=== PATIENT | female | born 1940 | race Caucasian/White ===

== ENCOUNTER 2020-05-27 14:55 | Outpatient (REF) | payer MEDICARE, SELFPAY | END 2020-05-27 14:56 | disposition home or self-care (01) | LOC: HO.LAB 14:55 | PROVIDERS: Visit Provider Internal Medicine | DX: Z20.822 Contact with and (suspected) exposure to COVID-19 (principal) | CPT/HCPCS: 36415; C9803; U0003 ==

== ENCOUNTER 2020-06-15 12:45 | Outpatient (REF) | payer MEDICARE, SELFPAY ==
[2020-06-15 13:14] LABS: Hemoglobin 8.1 g/dl (12.0-16.0)
[2020-06-15 13:16] LABS: Hematocrit 25.6 % (37-47); Mean Corpuscular HGB Conc 31.6 g/dl (31.0-35.0); Mean Corpuscular Hemoglobin 28.6 pg (27.0-33.0); Mean Corpuscular Volume 90.5 fL (80-98); Platelet Count 321 X10*3/uL (160-400); Red Blood Count 2.83 X10*6/uL (4.20-5.50); Red Cell Distribution Width 27.6 % (11.0-16.0); White Blood Count 7.9 X10*3/uL (4.8-10.8)
[2020-06-15 13:26] LABS: NRBC Pct Auto 1.9 /100WBC (0.0-0.2); PLT ABN DIST 1
[2020-06-15 13:44] LABS: Alanine Aminotransferase 10 U/L (0-31); Albumin Level 4.2 g/dL (3.5-5.0); Alkaline Phosphatase 54 U/L (39-117); Anion Gap 14 (12-20); Aspartate Amino Transferase 9 U/L (5-31); Bilirubin Total 0.9 mg/dL (0.0-1.0); Blood Urea Nitrogen 11 mg/dL (9-16); Calcium 8.6 mg/dL (8.4-10.2); Carbon Dioxide 25 mmol/L (22-29); Chloride 104 mmol/L (96-108); Cholesterol 183 mg/dL; Estimated Glomerular Filt Rate 43; Glucose Random 125 mg/dL (60-115); HDL Cholesterol 42 mg/dL; LDL Cholesterol Calculated 111 mg/dl; Potassium 4.2 mmol/L (3.3-5.1); Sodium 139 mmol/L (135-145); Total Protein 7.1 g/dL (6.5-8.0); Triglycerides 153 mg/dL
[2020-06-15 13:58] LABS: Thyroid Stimulating Hormone 4.72 uIU/mL (0.32-4.0)
[2020-06-15 14:10] LABS: Atypical Lymph Absolute Manual 0.1 x10*3/uL; Atypical Lymphs Percent Manual 1 % (0-6); Band Neutrophils Percent 11 % (3-5); Basophils Abs Manual 0.1 X10*3/uL (0.0-0.3); Basophils Percent Manual 1 % (0-1); Eosinophils Absolute Manual 1.2 X10*3/UL (0.0-0.8); Eosinophils Percent Manual 15 % (0-4); Lymphocytes Percent Manual 13 % (20-40); Metamyelocytes Absolute 0.2 X10*3/uL; Metamyelocytes Percent 2 %; Monocytes Absolute Manual 1.1 X10*3/uL (0.0-1.2); Monocytes Percent Manual 14 % (2-11); Neutrophils Absolute Manual 4.3 X10*3/uL (2.2-7.9); Neutrophils Percent Manual 43 % (45-73)
[2020-06-15 14:11] LABS: Large Platelet PRESENT; Platelet Estimate NORMAL (NORMAL); Platelet Morphology Comment NOTED; RBC Morphology NOTED
[2020-06-15 14:12] LABS: Acanthocytes 1+; Ovalocytes 1+; Polychromasia 2+; Schistocytes 1+; Target Cells 1+; Tear Drop Cells 1+
[2020-06-15 14:13] LABS: Basophilic Stippling 1+; Hypochromasia 2+; Pappenheimer Bodies PRESENT
== END 2020-06-15 12:46 | disposition home or self-care (01) ==
LOC: HO.LAB 12:45
PROVIDERS: Absent Provider Internal Medicine Medical Oncology; PCP Internal Medicine; Visit Provider Internal Medicine
DX: E03.9 Hypothyroidism, unspecified (principal); F32.89 Other specified depressive episodes; I12.9 Hypertensive chronic kidney disease with stage 1 through stage 4 chronic kidney disease, or unspecified chronic kidney disease; L65.9 Nonscarring hair loss, unspecified
CPT/HCPCS: 36415; 80053; 80061; 82728; 84443; 85007; 85025; 85027

== ENCOUNTER 2020-06-21 | Outpatient (REF) | payer MEDICARE, SELFPAY | END 2020-06-21 00:01 | disposition home or self-care (01) | LOC: HO.LAB | PROVIDERS: Visit Provider Internal Medicine Medical Oncology | DX: Z13.89 Encounter for screening for other disorder (principal) ==

== ENCOUNTER 2020-08-23 14:01 | Day surgery (SDC) | payer MEDICARE, SELFPAY ==
[2020-08-23 12:25] VITALS: BMI 23.8
--- NOTE | 2020-08-23 14:04 | HO.ANESPROP2 ---
[facility] Active Problems Active Problems: All Active Problems (Updated 08/18/20 @ 09:54 by Carolina Boucher MD) Anemia (Acute) Leukocytosis (Acute) Past Medical History Medical History Anemia Colitis Congestive heart failure (CHF) GERD (gastroesophageal reflux disease) HTN (hypertension) Hx of cardiac pacemaker Hx of thyroid disease Family History Family History Brother Cancer Sister Sister Dementia Surgical History Surgical History H/O colonoscopy History of permanent cardiac pacemaker placement Hx of eye surgery Hx of hysterectomy Hx of knee surgery Hx of tracheostomy Hx of tubal ligation Social History Social History Alcohol intake: current Alcohol intake frequency: a few times a month Alcohol type: hard liquor Smoking Status: Light tobacco smoker Tobacco Type: Cigarette Years Smoked: 41 Use of substances other than those prescribed or required for medical reasons: No Have you been hit, kicked, punched, or otherwise hurt by someone within the past year? If so, by whom?: No Advance Directives: No Advance Directives Information Provided: No Advance Directives on File: No Meds Allergies Allergy/AdvReac Type Severity Reaction Status Date / Time No Known Allergies Allergy Verified 08/23/20 12:19 [No Known Allergies*] Home Medications Medication Instructions Recorded Confirmed Last Taken Type amlodipine 5 mg PO DAILY 06/21/20 06/27/20 Unknown History fluoxetine 40 mg PO DAILY 06/21/20 06/27/20 Unknown History hydroxyzine pamoate 25 mg PO TID 06/21/20 06/27/20 Unknown History ibuprofen 400 mg PO Q6H PRN 06/21/20 06/27/20 Unknown History ketoconazole TOPICAL 06/21/20 Unknown History ketorolac drp 06/21/20 Unknown History levothyroxine 88 mcg PO DAILY 06/21/20 06/27/20 Unknown History lisinopril 20 mg PO DAILY 06/21/20 06/27/20 Unknown History omeprazole 20 mg PO DAILY 06/21/20 06/27/20 Unknown History propranolol 120 mg PO DAILY 06/21/20 06/27/20 Unknown History quetiapine 300 mg PO BEDTIME 06/21/20 06/27/20 Unknown History Exam Exam Date and Time: August 23, 2020 1404 Height,Weight and Vital Signs: Height 5 ft 6 in Weight 66.8 kg Airway Mallampati Class: II TM Dist: >3cm Partial: Upper and Lower Loose/Missing/Broken Teeth: Yes Heart: RRR Lungs: CTA Assessment and Plan Assessment Anesthesia Assessment: Anesthesia Plan Discussed and Chart Reviewed Final Anesthetic Review NPO: Yes ASA Class: III Final Preanesthetic Review: Meds/Allgs Chart Reviewed, Consent Obtained/Reviewed and Anes Risks/Benef Reviewed Patient Risk: Intermediate Procedure Risk: Low Anesthetic Plan Anesthetic Plan: MAC: Disposition: Standard PACU
[2020-08-23 14:11] VITALS: BP 158/86; PULSE 75; RESP 16; TEMP 36.5; O2SAT 95
[2020-08-23] MEDS: Lactated Ringers 1,000 ML 20 ML IVCONT (14:24)
[2020-08-23 15:00] VITALS: BP 115/63; PULSE 75; RESP 16; TEMP 36.8; O2SAT 99
--- NOTE | 2020-08-23 15:03 | PM.HEMONCBM ---
Bone Marrow Aspiration - Bone Marrow Aspiration Procedure:: *Service Date: [08/23/20] Pre Op Diagnosis:: 1. ANEMIA. 2. LEUKOCYTOSIS. Post Op Diagnosis:: SAME. Surgeon:: Carolina Laughlin. Anesthesia:: MAC. Consent:: Informed consent obtained from the patient for the procedure. Pros and cons of biopsy explained. The patient was willing to proceed with the procedure under local anesthesia and MAC. Procedure in Detail:: *Service Date: 08/23/20. *Procedure: Bone marrow aspiration and biopsy. *Pre Op Dx: Anemia. Leukocytosis. *Post Op Dx: Same. *Surgeon: Carolina Boucher. The patient was positioned prone and the left posterior superior iliac spine prepped and draped. Under aseptic precautions, 5 ml of 1% lidocaine used for local anesthesia. Bone marrow aspirate was performed. Biopsy was performed with the Jamshidi needle without any complications. Specimens were sent for Hill stain, flow cytometry, cytogenetics, Biopsy was sent for histology. The patient tolerated the procedure well. Bandage was applied and patient was positioned on her back for 10 to 15 minutes after the procedure. The patient was advised to call us if she develops any pain or swelling at the surgical site. Follow up in 2 weeks. Thanks, CC:
[2020-08-23 15:06] LABS: Bone Marrow SEE SEPARATE REPORT
[2020-08-23 15:15] VITALS: BP 151/77; PULSE 72; RESP 18; O2SAT 97
[2020-08-23 15:30] VITALS: BP 145/64; PULSE 60; RESP 16; O2SAT 97
[2020-08-23 15:45] VITALS: BP 136/66; PULSE 62; RESP 18; O2SAT 98
== END 2020-08-23 16:32 | disposition home or self-care (01) ==
PROVIDERS: PCP Internal Medicine; Visit Provider Internal Medicine Medical Oncology
PROC: (CPT 38221; principal; 2020-08-23 13:00)
DX: D64.9 Anemia, unspecified (principal); D72.829 Elevated white blood cell count, unspecified; F17.210 Nicotine dependence, cigarettes, uncomplicated; I11.0 Hypertensive heart disease with heart failure; I50.9 Heart failure, unspecified; K21.9 Gastro-esophageal reflux disease without esophagitis; Z95.0 Presence of cardiac pacemaker; Z79.899 Other long term (current) drug therapy
CPT/HCPCS: 38222; 36415; 85097; 88184; 88185; 88237; 88264; 88280; 88305; 88311; 88313; 88374

== ENCOUNTER 2020-10-18 11:14 | Outpatient (REF) | payer MEDICARE, SELFPAY | END 2020-10-18 11:15 | disposition home or self-care (01) | LOC: HO.MDS 11:14 | PROVIDERS: PCP Internal Medicine; Visit Provider Internal Medicine Medical Oncology | DX: D64.9 Anemia, unspecified (principal) | CPT/HCPCS: 36430; 86850; 86900; 86901; 86923; P9016 ==

== ENCOUNTER 2021-06-29 09:48 | Outpatient (REF) | payer MEDICARE, SELFPAY ==
[2021-06-29 10:30] LABS: Alanine Aminotransferase 19 U/L (0-31); Alkaline Phosphatase 48 U/L (39-117); Anion Gap 11 (12-20); Aspartate Amino Transferase 15 U/L (5-31); Blood Urea Nitrogen 10 mg/dL (9-16); Calcium 7.8 mg/dL (8.4-10.2); Carbon Dioxide 27 mmol/L (22-29); Chloride 106 mmol/L (96-108); Cholesterol 175 mg/dL; Estimated Glomerular Filt Rate 53; Glucose Random 94 mg/dL (60-115); HDL Cholesterol 41 mg/dL; LDL Cholesterol Calculated 120 mg/dl; Potassium 4.1 mmol/L (3.3-5.1); Sodium 140 mmol/L (135-145); Total Protein 6.8 g/dL (6.5-8.0); Triglycerides 74 mg/dL
[2021-06-29 10:42] LABS: Thyroid Stimulating Hormone 11.49 uIU/mL (0.32-4.0)
== END 2021-06-29 09:49 | disposition home or self-care (01) ==
LOC: HO.LAB 09:48
PROVIDERS: Visit Provider Internal Medicine
DX: D64.9 Anemia, unspecified (principal); E03.9 Hypothyroidism, unspecified; F32.9 Major depressive disorder, single episode, unspecified; I12.9 Hypertensive chronic kidney disease with stage 1 through stage 4 chronic kidney disease, or unspecified chronic kidney disease; N18.9 Chronic kidney disease, unspecified
CPT/HCPCS: 36415; 80053; 80061; 84443

== ENCOUNTER 2022-01-24 16:32 | Inpatient (IN) | payer MEDICARE, OTHER, SELFPAY ==
--- NOTE | ~2022-01-24 | CT_ITS ---
EXAMINATION: HEAD CT WITHOUT CONTRAST CERVICAL SPINE CT WITHOUT CONTRAST CLINICAL INFORMATION: Status post fall. COMPARISON: None. TECHNIQUE: Contiguous axial imaging of the head was performed without the administration of IV contrast. Axial multidetector volumetric images were also performed through the cervical spine without intravenous contrast. Multiplanar reconstructed images in coronal and sagittal orientations were submitted. This CT examination was performed using dose optimization techniques as appropriate, variously including the following: *Automated exposure control *Adjustment of mA and/or kV according to patient size (this includes techniques or standardized protocols for targeted exams where dose is matched to indication/reason for exam; i.e. extremities or head) *Use of iterative reconstruction technique DOSE: 967 mGy-cm FINDINGS: HEAD: There is no evidence of acute intracranial hemorrhage or territorial infarction. No abnormal mass-effect or midline shift. No extra-axial fluid collections. Rodriguez to white matter differentiation is well preserved. The ventricles are normal in size and configuration. A few foci of hypoattenuation in the subcortical and periventricular white matter are most consistent with chronic microangiopathic changes. Calvarium is intact. No fractures. Leftward deviation of the nasal septum. Left globe is aphakic. The sinuses and mastoid air cells are clear. CERVICAL SPINE: Vertebral body heights are normal. No fractures of the vertebral bodies or posterior elements. Anterolisthesis of C3 on C4 by 2 mm and is likely related to facet arthropathy at this level. No acute subluxation. Degenerative changes are present at the craniocervical and atlantoaxial articulations, though normal alignment is maintained. Moderate degenerative disc disease is evident at C4-C5 and C5-C6 with loss of intervertebral disc height, vertebral osteophytes, and endplate osteophytes. More mild degenerative disc disease is present at other levels. There is moderate multilevel facet arthropathy, most pronounced on the left from C2-C3 through C5-C6. No critical central canal stenoses are identified. Uncovertebral and facet osteophytes produce multilevel neural foraminal stenoses, most notably on the left from C2-C3 through C5-C6 and on the right at C4-C5 and C5-C6. Atherosclerotic calcifications are present in the abdominal aorta. No aneurysmal dilatation. Imaged portions of the lung apices are clear. CT/CT cervical spine wo IV con IMPRESSION: 1. No acute intracranial pathology. 2. No acute fracture or malalignment in the cervical spine. 3. Moderate multilevel degenerative spondylosis in cervical spine with multilevel neural foraminal encroachment.
--- NOTE | ~2022-01-24 | NM_ITS ---
EXAMINATION: LIMITED BONE SCAN. CLINICAL INFORMATION: Multiple lumbar fractures. Question acute versus old requested for kyphoplasty. COMPARISON: CT lumbar spine 01/16/2022 TECHNIQUE: Following intravenous administration of 23 mCi of 90 9M technetium MDP, limited bone scan of the spine was obtained. FINDINGS: There is no intense abnormal activity seen in the lumbar spine to suspect any acute fracture. There is nonspecific mild activity seen in the facet joints in the mid lumbar spine. No abnormal activity seen in the thoracic and cervical spine. Normal activity seen in upper extremities. Moderate increased activity seen in bilateral SI joints which could be secondary to sacroiliitis.. NM/NM bone scan limited area IMPRESSION: No abnormal metabolic activity seen in lumbar spine. Multiple lumbar fractures from T12 through L3 vertebra are likely old. No intervention needed. Nonspecific mild increase activity seen in bilateral SI joints likely sacroiliitis
--- NOTE | ~2022-01-24 | XR_ITS ---
EXAMINATION: XR LUMBOSACRAL SPINE CLINICAL INFORMATION: Status post fall. COMPARISON: CT dated 07/23/2014 and chest radiograph dated 09/26/2017. TECHNIQUE: Three views of the lumbosacral spine. FINDINGS: Superior endplate compression deformities are evident at T12, L1, L2, and L3 with vertebral body height loss measuring 65 percent, 40 percent, 50 percent, and 30 percent. The fracture of the L3 vertebral body is new as compared to prior and age indeterminant. The T12, L1 and L2 fractures appear chronic. Bones are osteopenic. No additional fractures. Mild hyperkyphosis of the thoracolumbar junction. There is mild to moderate multilevel degenerative disc disease in the lumbar spine with facet arthropathy in the lower lumbar spine. Mild osteoarthritis in the SI joints. Calcific atherosclerosis in the abdominal aorta and iliac arteries. XR/XR lumbar spine 2-3V IMPRESSION: Age indeterminant superior endplate compression fracture of the L3 vertebral body with approximately 30 percent loss of vertebral body height. Chronic superior endplate compression fractures at T12, L1, and L2.
--- NOTE | ~2022-01-24 | US_ITS ---
EXAMINATION: US RETROPERITONEAL LIMITED (RENAL ONLY) CLINICAL INFORMATION: UTI. COMPARISON: X-ray abdomen 07/28/2014 and 07/26/2014. CT abdomen and pelvis 07/23/2014. Renal ultrasound 06/19/2013. TECHNIQUE: Real-time imaging of the kidneys. FINDINGS: RIGHT KIDNEY: 9.8 x 5.2 x 4.7 cm (SAG x AP x TRV). The kidney is normal in size, contour, and echogenicity. Renal cortical thickness is normal. There is a 1.6 x 1.8 x 1.8 cm cyst in the mid to lower pole. No renal calculi or hydronephrosis. LEFT KIDNEY: 9.8 x 4.4 x 4.6 cm (SAG x AP x TRV). The kidney is normal in size, contour, and echogenicity. Renal cortical thickness is normal. No calculi or focal parenchymal lesions. No hydronephrosis. US/US renal BI IMPRESSION: Right renal cyst. No stone or hydronephrosis seen.
--- NOTE | ~2022-01-24 | CT_ITS ---
EXAMINATION: CT LUMBAR SPINE WITHOUT CONTRAST CLINICAL INFORMATION: Compression fracture T10 through L5. COMPARISON: X-ray of the lumbosacral spine 01/24/2022, lumbosacral spine December 2013. TECHNIQUE: CT scan of the lumbosacral spine was performed with reconstruction imaging performed at the acquisition workstation. This CT examination was performed using dose optimization techniques as appropriate, variously including the following: *Automated exposure control. *Adjustment of mA and/or kV according to patient size (this includes techniques or standardized protocols for targeted exams where dose is matched to indication/reason for exam; i.e. extremities or head). *Use of iterative reconstruction technique. DLP: 501 mGy-cm FINDINGS: There are chronic unchanged compression fractures of L1 and L2 when compared with prior x-ray performed December 2013. There is approximately 30% loss of the expected vertebral body height at both levels. There is a severe compression fracture of T12, age-indeterminate, but new compared with the 2013 x-ray. The fracture involves the superior endplate along with the body resulting in over 80% loss of the expected vertebral body height, fracture more likely chronic than subacute. No discrete fracture line identified. This has resulted in posterior protrusion of the vertebral body into the canal measuring up to 5 mm. L3: There is a prominent compression fracture of the superior endplate resulting in approximately 50% loss in the expected vertebral body height. There is no discrete fracture line. This likely reflects a chronic rather than subacute fracture. There is multilevel degenerative disc changes with severe degenerative disc changes present from T11-T12 through L3-L4 with vacuum disc phenomenon present and variable disc space narrowing. There is bilateral facet arthrosis at L5-S1 levels. At T11-T12, there is mild generalized bulging of the disc and advanced bilateral facet arthrosis. As noted above, there is posterior protrusion of the posterior aspect of the vertebral body related to the fracture. Overall findings result in [id number] narrowing of the central canal. T12-L1: Minimal bulging of the disc. Mild bilateral facet arthrosis or significant narrowing central canal and neural foramina. L1-L2: Minimal bulging of the disc. Mild bilateral facet arthrosis. No significant narrowing of the central canal or neural foramina. L2-L3: Mild bulging of the disc. Bilateral facet arthrosis. No significant narrowing of the central canal. Mild narrowing of the neural foramina. L3-L4: Generalized bulging of the disc. Mild bilateral facet arthrosis. [id number] narrowing of the central canal and neural foramina bilaterally. L4-L5: Generalized bulging of the disc with mild bilateral facet arthrosis. Findings result in mild narrowing of the central canal and neural foramina bilaterally. L5-S1: Mild bulging of the disc. Mild bilateral facet arthrosis. Findings result in mild narrowing of the central canal and neural foramina bilaterally. MISCELLANEOUS FINDINGS: Moderate calcific atherosclerotic changes. CT/CT lumbar spine wo IV con IMPRESSION: 1. Chronic/old compression fractures L1 and L2, unchanged compared with 2014. 2. Additional compression fractures of T12 and L3, age-indeterminate but more likely chronic than subacute, albeit new compared with the 2014 exam. 3. Additional multilevel spondylosis of the lumbosacral spine.
--- NOTE | 2022-01-24 16:43 | ECG_ITS ---
Test Reason : TACYCARDIA Blood Pressure : / mmHG Vent. Rate : 118 BPM Atrial Rate : 000 BPM P-R Int : 000 ms QRS Dur : 138 ms QT Int : 402 ms P-R-T Axes : 000 098 -52 degrees QTc Int : 563 ms Atrial fibrillation with rapid ventricular response Right bundle branch block T wave abnormality, consider inferolateral ischemia Abnormal ECG When compared with ECG of 11-APR-2015 12:14, Atrial fibrillation has replaced Electronic atrial pacemaker Right bundle branch block is now Present T wave inversion now evident in Inferior leads and Lateral leads Heart rate has increased Referred By: Generic ED Physician Electronically Signed By:UMAIR ANG
--- NOTE | 2022-01-24 16:44 | ED_ITS ---
HPI - Fall General Stated Complaint: BACK S/P FALL OUTSIDE ON SATURDAY,THINNERS Related Data Home Medications Medication Instructions Recorded Confirmed fluoxetine 40 mg capsule 40 mg PO DAILY 06/21/20 01/12/22 hydroxyzine pamoate 25 mg capsule 25 mg PO TID 06/21/20 01/12/22 ibuprofen 400 mg tablet 400 mg PO Q6H PRN Pain 06/21/20 01/12/22 levothyroxine 88 mcg tablet 88 mcg PO DAILY 06/21/20 01/12/22 omeprazole 20 mg capsule,delayed 20 mg PO DAILY 06/21/20 01/12/22 release propranolol 120 mg capsule,24 120 mg PO DAILY 06/21/20 01/12/22 hr,extended release (Inderal LA) quetiapine 300 mg tablet 300 mg PO BEDTIME 06/21/20 01/12/22 lisinopril 10 mg tablet 10 mg PO DAILY 12/18/21 01/12/22 Previous Rx's Medication Instructions Recorded folic acid 1 mg tablet 1 mg PO DAILY #90 tabs 06/24/20 acetaminophen 500 mg tablet 500 mg PO Q6H PRN Breakthrough 08/23/20 (Tylenol Extra Strength) Pain, Moderate #30 tabs aluminum-mag hydroxide-simethicone 10 ml PO QID PRN Digestion #350 mL 11/02/21 200 mg-200 mg-20 mg/5 mL oral susp (Maalox Advanced) cyclobenzaprine 10 mg tablet 10 mg PO BEDTIME #30 tabs 01/12/22 Allergies Allergy/AdvReac Type Severity Reaction Status Date / Time No Known Allergies Allergy Verified 01/12/22 08:40 [No Known Allergies*] [facility] Past Medical History Attestation statement: The following information was validated with the patient. Source: old records reviewed Medical History Anemia Colitis Congestive heart failure (CHF) GERD (gastroesophageal reflux disease) HTN (hypertension) Hx of cardiac pacemaker Hx of thyroid disease Surgical History H/O colonoscopy History of permanent cardiac pacemaker placement Hx of eye surgery Hx of hysterectomy Hx of knee surgery Hx of tracheostomy Hx of tubal ligation Family History Family History Brother Cancer Sister Sister Dementia Son Esophageal cancer Social History Social History Household Members: None Housing: House Are you a primary personal care home administrator to a significant other at home: No Do you presently have visiting nurse or other home services: No Alcohol intake: current Alcohol intake frequency: a few times a month Alcohol type: hard liquor Patient Tobacco Use Status: Current everyday Tobacco user Years Smoked: 41 service: No Current occupational status: retired Discharge Plan Discharge Prescriptions: No Action folic acid 1 mg Tablet 1 mg PO DAILY Qty: 90 3RF fluoxetine 40 mg capsule 40 mg PO DAILY quetiapine 300 mg tablet 300 mg PO BEDTIME levothyroxine 88 mcg tablet 88 mcg PO DAILY ibuprofen 400 mg tablet 400 mg PO Q6H PRN (Reason: Pain) omeprazole 20 mg capsule,delayed release(DR/EC) 20 mg PO DAILY propranolol [Inderal LA] 120 mg capsule,extended release 24 hr 120 mg PO DAILY hydroxyzine pamoate 25 mg capsule 25 mg PO TID acetaminophen [Tylenol Extra Strength] 500 mg Tablet 500 mg PO Q6H PRN (Reason: Breakthrough Pain, Moderate) Qty: 30 3RF alum-mag hydroxide-simeth [Maalox Advanced] 200-200-20 mg/5 mL Suspension 10 ml PO QID PRN (Reason: Digestion) Qty: 350 5RF Rx Instructions: administer between meals and at bedtime lisinopril 10 mg Tablet 10 mg PO DAILY cyclobenzaprine 10 mg Tablet 10 mg PO BEDTIME Qty: 30 4RF
[2022-01-24 16:46] VITALS: BP 108/90; BP 138/71; PULSE 115; PULSE 173; RESP 20; TEMP 36.7; O2SAT 94; O2SAT 98; BMI 24.9
--- NOTE | 2022-01-24 16:46 | ED.GENADULT ---
HPI - General Adult General Chief complaint: Fall Stated complaint: BACK S/P FALL OUTSIDE ON Time Seen by Provider: 01/24/22 16:46 Source: patient Mode of arrival: EMS Limitations: no limitations History of Present Illness HPI narrative: Patient apparently fell 5 days ago 2 times while carrying the pizza tripped on the step fell on the side since then been having increased low back pain. First time she fell while entering the house when she misstepped 2nd time she fell while going down stairs 1 flight of stairs about 12 steps she fell with pizza hitting her head to the ground no loss of consciousness complaining of low back pain since a fall. No chest pain no shortness of breath patient does have history of back pain but after the fall pain is getting worse had difficulty in ambulation. No urinary incontinence no head injury Heart rate noted to be 170 per EMS but on arrival was only 92 Related Data Home Medications Medication Instructions Recorded Confirmed fluoxetine 40 mg capsule 40 mg PO DAILY 06/21/20 01/24/22 ibuprofen 400 mg tablet 400 mg PO Q6H PRN Pain 06/21/20 01/24/22 levothyroxine 88 mcg tablet 88 mcg PO DAILY 06/21/20 01/24/22 quetiapine 300 mg tablet 300 mg PO BEDTIME 06/21/20 01/24/22 lisinopril 10 mg tablet 10 mg PO DAILY 12/18/21 01/24/22 Previous Rx's Medication Instructions Recorded acetaminophen 500 mg tablet 500 mg PO Q6H PRN Breakthrough 08/23/20 (Tylenol Extra Strength) Pain, Moderate #30 tabs aluminum-mag hydroxide-simethicone 10 ml PO QID PRN Digestion #350 mL 11/02/21 200 mg-200 mg-20 mg/5 mL oral susp (Maalox Advanced) cyclobenzaprine 10 mg tablet 10 mg PO BEDTIME #30 tabs 01/12/22 Allergies Allergy/AdvReac Type Severity Reaction Status Date / Time No Known Allergies Allergy Verified 01/12/22 08:40 [No Known Allergies*] Review of Systems Review of Systems: Yes all other systems are reviewed and are negative [facility] Past Medical History Medical History Anemia Colitis Congestive heart failure (CHF) GERD (gastroesophageal reflux disease) HTN (hypertension) Hx of cardiac pacemaker Hx of thyroid disease Surgical History H/O colonoscopy History of permanent cardiac pacemaker placement Hx of eye surgery Hx of hysterectomy Hx of knee surgery Hx of tracheostomy Hx of tubal ligation Family History Family History Brother Cancer Sister Sister Dementia Son Esophageal cancer Social History Social History Household Members: None Housing: House Are you a primary wound care technician to a significant other at home: No Do you presently have visiting nurse or other home services: No Alcohol intake: current Alcohol intake frequency: a few times a month Alcohol type: hard liquor Patient Tobacco Use Status: Current everyday Tobacco user Years Smoked: 41 Use of substances other than those prescribed or required for medical reasons: No Advance Directives: No Advance Directives Information Provided: No service: No Current occupational status: retired Physical Exam ED Vital Signs: Vital Signs - 24 hr 01/24/22 16:46 01/24/22 19:19 01/24/22 21:28 Temperature 98.1 F Pulse Rate 115 H 100 92 Respiratory Rate 20 16 16 Blood Pressure 138/71 155/89 H 128/79 Pulse Oximetry 94 93 95 Oxygen Delivery Method Room Air Room Air Room Air BMI result Body Mass Index 24.9 Appearance: Alert. Oriented X3. No acute distress. Eyes: PERRLA, No Nystagmus ENT: Pharynx normal. Oral Mucosa moist Neck: Normal inspection. Neck supple. CVS: Tachycardic irregularly irregular soft systolic ejection murmur no rub or gallop Pulses normal. Respiratory: No respiratory distress. Equal air entry bilateral, no wheezing/rales/rhonchi Abdomen: Soft and nontender. Bowel sounds are present, no mass palpable, no CVA tenderness Skin: Skin warm and dry. Normal skin color. Normal skin turgor. Extremities: No lower extremity edema. No calf tenderness back: Diffuse lumbar spine tenderness no focal tenderness /deformity Neuro: Oriented X 3. No motor deficit. No sensory deficit.No cerebellar signs , cranial nerves II-XII intact Medical Decision Making MDM Narrative Medical decision making narrative: Patient with acute/subacute lumbar compression fracture L1-L2 L3 and T12 unable to manage at home along with UTI will admit patient for pain control and antibiotics treatment plan for IR to look into vertebroplasty Patient cardiogram shows atrial fibrillation which is new onset , no AFib in previous EKGs patient unaware of atrial fibrillation patient denied any dizziness palpitation or chest pain prior to the fall heart rate is fluctuating between 120 patient does have anemia of unknown origin and does get blood transfusions at this time will hold any anticoagulation at this time cardiology consult Cardizem p.o. for rate control Lab Data Lab results reviewed: Yes I reviewed the patient's lab results. Result diagrams: 01/24/22 17:13 01/24/22 17:13 Labs: Lab Results 01/24/22 01/24/22 01/24/22 Range/Units 17:13 17:13 17:13 WBC 9.5 (4.8-10.8) X10*3/uL RBC 2.97 L (4.20-5.50) X10*6/uL Hgb 9.4 L (12.0-16.0) g/dl Hct 28.0 L (37.0-47.0) % MCV 94.3 (80.0-98.0) fL MCH 31.6 (27.0-33.0) pg MCHC 33.6 (31.0-35.0) g/dl RDW 21.4 H (11.0-16.0) % Plt Count 247 (160-400) X10*3/uL MPV 12.6 H (9.4-12.3) fL Immature Gran % (Auto) 1.9 H (0.0-0.4) % Neut % (Auto) 71.3 (45-73) % Lymph % (Auto) 14.8 L (20-40) % [place] % (Auto) 9.2 (2-11) % Eos % (Auto) 2.5 (0-4) % Baso % (Auto) 0.3 (0-2) % Lymph # (Auto) 1.4 (1.2-4.9) X10*3/uL [place] # (Auto) 0.9 (0.1-1.2) X10*3/uL Eos # (Auto) 0.2 (0.0-0.4) X10*3/uL Baso # (Auto) 0.0 (0.0-0.2) X10*3/uL Abs Immat Gran (auto) 0.18 H (0.00-0.03) X10*3/uL Absolute Neuts (auto) 6.8 (2.0-8.3) x10*3/uL Absolute Nucleated RBC 0.060 H (0.0-0.012) X10*3/uL Nucleated RBC % (auto) 0.6 H (0.0-0.2) /100WBC PT (10.0-13.1) SEC INR (0.9-1.1) Sodium 135 (135-145) mmol/L Potassium 3.9 (3.3-5.1) mmol/L Chloride 102 (96-108) mmol/L Carbon Dioxide 17 L (22-29) mmol/L Anion Gap 20 (12-20) BUN 16 D (9-16) mg/dL Creatinine 1.14 (0.5-1.4) mg/dL Estim Creat Clear Calc 34.9 Estimated GFR 46 Random Glucose 110 (60-115) mg/dL Lactic Acid (0.5-2.0) mmol/L Calcium 8.2 L D (8.4-10.2) mg/dL Total Bilirubin 0.6 (0.0-1.0) mg/dL AST 10 (5-31) U/L ALT 14 (0-31) U/L Alkaline Phosphatase 57 (39-117) U/L Troponin I High Sens (<3.5-17.0) ng/L Total Protein 6.7 (6.5-8.0) g/dL Albumin 3.8 (3.5-5.0) g/dL Urine Color Urine Appearance Urine pH (5.0-9.0) Ur Specific [place] (1.005-1.025) Urine Protein (Neg-Trace) mg/dL Urine Glucose (UA) (Negative) mg/dL Urine Ketones (Negative) mg/dL Urine Blood (Negative) Urine Nitrite (Negative) Ur Leukocyte Esterase (Negative) Urine RBC (0-2) /HPF Urine WBC (0-5) /HPF Ur Squamous Epith Cells (0-2) /HPF Urine Bacteria (None Seen) Hyaline Casts (0-2) /LPF COVID-19 (JUNG) Negative (Negative) COVID-19 Clin Com See Note 01/24/22 01/24/22 01/24/22 Range/Units 17:13 17:13 19:24 WBC (4.8-10.8) X10*3/uL RBC (4.20-5.50) X10*6/uL Hgb (12.0-16.0) g/dl Hct (37.0-47.0) % MCV (80.0-98.0) fL MCH (27.0-33.0) pg MCHC (31.0-35.0) g/dl RDW (11.0-16.0) % Plt Count (160-400) X10*3/uL MPV (9.4-12.3) fL Immature Gran % (Auto) (0.0-0.4) % Neut % (Auto) (45-73) % Lymph % (Auto) (20-40) % [place] % (Auto) (2-11) % Eos % (Auto) (0-4) % Baso % (Auto) (0-2) % Lymph # (Auto) (1.2-4.9) X10*3/uL [place] # (Auto) (0.1-1.2) X10*3/uL Eos # (Auto) (0.0-0.4) X10*3/uL Baso # (Auto) (0.0-0.2) X10*3/uL Abs Immat Gran (auto) (0.00-0.03) X10*3/uL Absolute Neuts (auto) (2.0-8.3) x10*3/uL Absolute Nucleated RBC (0.0-0.012) X10*3/uL Nucleated RBC % (auto) (0.0-0.2) /100WBC PT 11.4 (10.0-13.1) SEC INR 1.0 (0.9-1.1) Sodium (135-145) mmol/L Potassium (3.3-5.1) mmol/L Chloride (96-108) mmol/L Carbon Dioxide (22-29) mmol/L Anion Gap (12-20) BUN (9-16) mg/dL Creatinine (0.5-1.4) mg/dL Estim Creat Clear Calc Estimated GFR Random Glucose (60-115) mg/dL Lactic Acid (0.5-2.0) mmol/L Calcium (8.4-10.2) mg/dL Total Bilirubin (0.0-1.0) mg/dL AST (5-31) U/L ALT (0-31) U/L Alkaline Phosphatase (39-117) U/L Troponin I High Sens 7.6 (<3.5-17.0) ng/L Total Protein (6.5-8.0) g/dL Albumin (3.5-5.0) g/dL Urine Color Yellow Urine Appearance Turbid Urine pH 6.0 (5.0-9.0) Ur Specific [place] <= 1.005 (1.005-1.025) Urine Protein 30 (1+) H (Neg-Trace) mg/dL Urine Glucose (UA) Negative (Negative) mg/dL Urine Ketones Negative (Negative) mg/dL Urine Blood Moderate (2+) H (Negative) Urine Nitrite Negative (Negative) Ur Leukocyte Esterase Large (3+) H (Negative) Urine RBC 0-2 (0-2) /HPF Urine WBC >50 H (0-5) /HPF Ur Squamous Epith Cells 0-2 (0-2) /HPF Urine Bacteria 4+ (None Seen) Hyaline Casts 0-2 (0-2) /LPF COVID-19 (JUNG) (Negative) COVID-19 Clin Com 01/24/22 Range/Units 21:27 WBC (4.8-10.8) X10*3/uL RBC (4.20-5.50) X10*6/uL Hgb (12.0-16.0) g/dl Hct (37.0-47.0) % MCV (80.0-98.0) fL MCH (27.0-33.0) pg MCHC (31.0-35.0) g/dl RDW (11.0-16.0) % Plt Count (160-400) X10*3/uL MPV (9.4-12.3) fL Immature Gran % (Auto) (0.0-0.4) % Neut % (Auto) (45-73) % Lymph % (Auto) (20-40) % [place] % (Auto) (2-11) % Eos % (Auto) (0-4) % Baso % (Auto) (0-2) % Lymph # (Auto) (1.2-4.9) X10*3/uL [place] # (Auto) (0.1-1.2) X10*3/uL Eos # (Auto) (0.0-0.4) X10*3/uL Baso # (Auto) (0.0-0.2) X10*3/uL Abs Immat Gran (auto) (0.00-0.03) X10*3/uL Absolute Neuts (auto) (2.0-8.3) x10*3/uL Absolute Nucleated RBC (0.0-0.012) X10*3/uL Nucleated RBC % (auto) (0.0-0.2) /100WBC PT (10.0-13.1) SEC INR (0.9-1.1) Sodium (135-145) mmol/L Potassium (3.3-5.1) mmol/L Chloride (96-108) mmol/L Carbon Dioxide (22-29) mmol/L Anion Gap (12-20) BUN (9-16) mg/dL Creatinine (0.5-1.4) mg/dL Estim Creat Clear Calc Estimated GFR Random Glucose (60-115) mg/dL Lactic Acid 2.8 H* (0.5-2.0) mmol/L Calcium (8.4-10.2) mg/dL Total Bilirubin (0.0-1.0) mg/dL AST (5-31) U/L ALT (0-31) U/L Alkaline Phosphatase (39-117) U/L Troponin I High Sens (<3.5-17.0) ng/L Total Protein (6.5-8.0) g/dL Albumin (3.5-5.0) g/dL Urine Color Urine Appearance Urine pH (5.0-9.0) Ur Specific [place] (1.005-1.025) Urine Protein (Neg-Trace) mg/dL Urine Glucose (UA) (Negative) mg/dL Urine Ketones (Negative) mg/dL Urine Blood (Negative) Urine Nitrite (Negative) Ur Leukocyte Esterase (Negative) Urine RBC (0-2) /HPF Urine WBC (0-5) /HPF Ur Squamous Epith Cells (0-2) /HPF Urine Bacteria (None Seen) Hyaline Casts (0-2) /LPF COVID-19 (JUNG) (Negative) COVID-19 Clin Com ECG Data Attestation: I personally reviewed and interpreted this ECG as follows: Interpretation: Atrial fibrillation with rapid ventricular rate 118 beats per minute right bundle-branch block no acute ST wave changes no acute ischemia Discharge Plan Discharge Clinical Impression: Compression fracture, Anemia, Atrial fibrillation, new onset, Back pain Patient Disposition: Admitted As Inpatient
[2022-01-24 17:26] LABS: MANUAL DIFF FLAG NO
[2022-01-24 17:36] LABS: Lymphocytes Absolute Auto 1.4 X10*3/uL (1.2-4.9); NRBC Pct Auto 0.6 /100WBC (0.0-0.2); SCAN SMEAR FLAG 1
[2022-01-24 17:38] LABS: Basophils Percent Auto 0.3 % (0-2); Eosinophils Absolute Auto 0.2 X10*3/uL (0.0-0.4); Eosinophils Percent Auto 2.5 % (0-4); Hemoglobin 9.4 g/dl (12.0-16.0); Imm Gran Abs Auto 0.18 X10*3/uL (0.00-0.03); Imm Gran Pct Auto 1.9 % (0.0-0.4); Lymphocytes Percent Auto 14.8 % (20-40); Mean Corpuscular HGB Conc 33.6 g/dl (31.0-35.0); Mean Corpuscular Hemoglobin 31.6 pg (27.0-33.0); Mean Corpuscular Volume 94.3 fL (80.0-98.0); Mean Platelet Volume 12.6 fL (9.4-12.3); Monocytes Absolute Auto 0.9 X10*3/uL (0.1-1.2); Monocytes Percent Auto 9.2 % (2-11); Neutrophils Absolute Auto 6.8 x10*3/uL (2.0-8.3); Neutrophils Percent Auto 71.3 % (45-73); Platelet Count 247 X10*3/uL (160-400); Red Blood Count 2.97 X10*6/uL (4.20-5.50); Red Cell Distribution Width 21.4 % (11.0-16.0); White Blood Count 9.5 X10*3/uL (4.8-10.8)
[2022-01-24 17:48] LABS: PLT ABN DIST 1
[2022-01-24 17:49] LABS: Prothrombin Time 11.4 SEC (10.0-13.1)
[2022-01-24 17:50] LABS: Alanine Aminotransferase 14 U/L (0-31); Albumin Level 3.8 g/dL (3.5-5.0); Alkaline Phosphatase 57 U/L (39-117); Anion Gap 20 (12-20); Aspartate Amino Transferase 10 U/L (5-31); Bilirubin Total 0.6 mg/dL (0.0-1.0); Blood Urea Nitrogen 16 mg/dL (9-16); Calcium 8.2 mg/dL (8.4-10.2); Carbon Dioxide 17 mmol/L (22-29); Chloride 102 mmol/L (96-108); Creatinine Clr Calc Pharmacy 34.9; Estimated Glomerular Filt Rate 46; Glucose Random 110 mg/dL (60-115); Potassium 3.9 mmol/L (3.3-5.1); Sodium 135 mmol/L (135-145); Total Protein 6.7 g/dL (6.5-8.0)
[2022-01-24 17:54] LABS: Troponin-I High Sensitivity 7.6 ng/L (<3.5-17.0)
[2022-01-24 17:57] LABS: COVID-19 Test Negative (Negative); IDNOW Serial# 16C4AD1C
[2022-01-24 19:19] VITALS: BP 155/89; PULSE 100; RESP 16; O2SAT 93
[2022-01-24] MEDS: ondansetron HCL 4 MG/2 ML VIAL IVPUSH (19:30)
[2022-01-24] MEDS: Morphine Sulfate 2 MG/ML CARTRIDGE IVPUSH (19:30)
[2022-01-24 19:31] LABS: Appearance Urine Turbid; Color Urine Yellow; Glucose Urine UA Negative (Negative); Leukocyte Esterase Urine Large (3+) (Negative); Nitrite Urine Negative (Negative); Specific Gravity - Urine <= 1.005 (1.005-1.025); UMIC TRIGGER UACC YES; Urine Blood Moderate (2+) (Negative); Urine Ketones Negative (Negative); Urine Protein 30 (1+) mg/dL (Neg-Trace)
--- NOTE | 2022-01-24 19:37 | PC.NURSE ---
pt assisted to commode, very unsteady, c/o severe back pain. remains continent of urine.
[2022-01-24 20:21] LABS: Bacteria Urine 4+ (None Seen); Hyaline Casts Urine 0-2 /LPF (0-2); RBC Urine 0-2 /HPF (0-2); Squamous Epithelial Cell Urine 0-2 /HPF (0-2); UACC Culture Trigger YES; WBC Urine >50 /HPF (0-5)
[2022-01-24 21:28] VITALS: BP 128/79; PULSE 92; RESP 16; O2SAT 95
--- NOTE | 2022-01-24 21:40 | PHA.MEDREC ---
Addendum entered by Sheri Riggs [facility] 01/24/22 21:42: Of note: patient states she has not taken any of her medications today as she has been at the hospital. Original Note: Pharmacy Consult ? Medication Reconciliation Pharmacy has completed the medication reconciliation. Patient did not know what she was on. I asked her if there was anyone I could call. She told me to call [facility] however pharmacy is closed. Used claim history to create list. Excluded medications that have not been picked up since august.
[2022-01-24] MEDS: cefTRIAXone sodium 1 GM in 0.9 % Sodium Chloride 50 ML IV (21:45)
[2022-01-24 21:51] LABS: Lactic Acid 2.8 mmol/L (0.5-2.0)
--- NOTE | 2022-01-24 23:11 | MHC.CM.PN ---
Pt is a pending admission. Pt primary RN shared with CM that this patient lives alone, has daughters who live near, and recently lost 2 sons to illness (CA and Aneurysm). Pt expressed to RN feeling depressed. CM did not meet with this patient yet. Please assess with CM assessment when admitted.
--- OUTSIDE RECORDS SUMMARY | 2022-01-24 23:23 | XMS_ITS | Continuity of Care Document ---
:1940 Author Organization [facility] Address [address] [place] [id number] Care Team Providers Name Role Phone Krissy Villarreal MD Primary Care Physician Encounter [facility] Date(s): 04/07/19 - 04/08/[address] [address] [facility] Encounter Diagnosis Laceration of face (Final) - 04/08/19 Laceration of face (Final) - 04/08/19 Discharge Disposition: A-D/C Home Attending Physician: Gabo Rangel MD Admitting Physician: Gabo Rangel MD Referring Physician: Not on Staff, Referring MD Allergies, Adverse Reactions, Alerts Substance Reaction Severity Status NKA Active Immunizations Given and Recorded Vaccine Date Status Refusal Reason tetanus/diphtheria/pertussis, acel(Tdap) 04/08/19 Given Medications amLODIPine 5 mg oral tablet 0 Refills, Maintenance, 04/08/19 7:42:29 EST Start Date: 04/08/19 Status: OrderedamLODIPine 5 mg oral tablet 5 mg, 1, tablet, By Mouth, Daily, # 30 tablet, Refills 0, Maintenance, 12/28/15 16:26:36 Start Date: 12/28/15 Status: Orderedamoxicillin 500 mg oral capsule TK 4 CS PO 1 HOUR B PRO Start Date: 04/08/19 Status: OrderedclonazePAM 0.5 mg oral tablet 1 tablet = 0.5 mg, By Mouth, 3 times a day, 0 Refills, Maintenance, 12/28/15 16:24:11, Tablet Start Date: 12/28/15 Status: Orderedduloxetine 20 mg oral enteric coated capsule TK 1 C PO QD Start Date: 04/08/19 Status: OrderedFluad intramuscular suspension ADM 0.5ML IM UTD Start Date: 04/08/19 Status: OrderedFLUoxetine 40 mg oral capsule TK 1 C PO D Start Date: 04/08/19 Status: OrderedFLUoxetine 40 mg oral capsule 1 capsule = 40 mg, By Mouth, Daily, 0 Refills, Maintenance, 12/28/15 16:28:01 Start Date: 12/28/15 Status: Orderedhydrochlorothiazide-lisinopril 12.5 mg-10 mg oral tablet 1 tablet, By Mouth, Daily, # 30 tablet, 0 Refills, Maintenance, Tablet Start Date: 03/24/13 Status: Orderedlevothyroxine 0.1 mg oral tablet 1 tablet = 100 mcg, By Mouth, Daily, # 30 tablet, 0 Refills, Maintenance, 12/28/15 16:25:55, Tablet Start Date: 12/28/15 Status: Orderedlevothyroxine 0.112 mg oral tablet TK 1 T PO QD Start Date: 04/08/19 Status: Orderedlisinopril 20 mg oral tablet TK 1 T PO D Start Date: 04/08/19 Status: OrderedMedrol Dosepak 4 mg oral tablet 1 pack/packet, By Mouth, Once, # 21 tablet, 0 Refills, Soft Stop, 07/12/16 14:41:01, Tablet Start Date: 07/12/16 Status: Orderedmeloxicam 15 mg oral tablet TK 1 T PO QD Start Date: 04/08/19 Status: OrderedOmeprazole = 20 mg, By Mouth, Daily, 0 Refills, Maintenance Start Date: 11/06/12 Status: Orderedomeprazole 20 mg oral enteric coated capsule TK ONE C PO QD Start Date: 04/08/19 Status: Orderedoxaprozin 600 mg oral tablet 1 tablet = 600 mg, By Mouth, 2 times a day, 0 Refills, Maintenance, 12/28/15 16:24:31 Start Date: 12/28/15 Status: OrderedPatient's Own Meds See Instructions, Maintenance, Propanolol 100mg ER, 12/28/15 16:28:28 Start Date: 12/28/15 Status: Orderedpropranolol 120 mg oral capsule, extended release TK 1 C PO QD Start Date: 04/08/19 Status: OrderedQUEtiapine 200 mg oral tablet 200 mg, 1, tablet, By Mouth, Daily at bedtime, # 180 tablet, Refills 0, Maintenance, 12/28/15 16:24:53 Start Date: 12/28/15 Status: OrderedQUEtiapine 300 mg oral tablet TK 1 T PO HS Start Date: 04/08/19 Status: OrderedraNITIdine 300 mg oral tablet TK 1 T PO QD HS Start Date: 04/08/19 Status: OrderedtiZANidine 2 mg oral tablet TK 1 T PO TID Start Date: 04/08/19 Status: Orderedzolpidem 5 mg oral tablet 1 tablet = 5 mg, By Mouth, Daily at bedtime, 0 Refills, Maintenance, 12/28/15 16:23:49 Start Date: 12/28/15 Status: Ordered Problem List Condition Effective Dates Status Health Status Informant Acquired vaginal enterocele(Confirmed) Active Cystocele(Confirmed) Active 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 FINDINGS: No fractures or bone lesions. The visualized joint spaces are normal. Laceration along the ulnar aspect of the distal forearm without evidence of a foreign body. IMPRESSION: No osseous or joint space abnormality. Laceration along the ulnar aspect of the distal forearm. WSN: [id number] Dictated By: Jesu Lord MD Dictated Date/Time: 04/08/19 8:26 am Reviewed By: Jesu Lord MD Signed By: Jesu Lord MD Signed Date/Time: 04/08/19 8:26 am Transcribed By: ELISA Transcribed Date/Time: 04/08/19 8:25 am Exam Date Time Procedure Performing Provider Status 04/08/19 2:02 AM Chest 2 Views Frontal and Lat Marc Clayton ; Auth (Verified) Notes:(Chest 2 Views Frontal and Lat) Reason For Exam: Traumatic Chest Pain;Other:RESULT: Chest 2 Views Frontal and Lat Chest 2 Views Frontal and Lat INDICATION: Status post fall. COMPARISON: Multiple priors, most recent 12/28/2015. FINDINGS: LINES AND TUBES: Dual-lead left subclavian pacer/AICD wires are intact. LUNGS AND PLEURA: Clear lungs. Normal pulmonary vascularity. No pleural effusion. No pneumothorax. HEART, MEDIASTINUM AND TOYA: Heart is normal in size. Normal mediastinal and hilar contour. BONES AND SOFT TISSUES: Compression fracture of L1 vertebral body, of approximately 75% loss of body height, increased sinceprior study of 12/28/2015. There is also compression fracture of L2, similar to prior study. Bilateral degenerative changes of the shoulders. IMPRESSION: No radiographic evidence of acute cardiopulmonary abnormality. Compression deformity of L1 vertebral body, increased since prior study. Recommend clinical correlation with point tenderness. I have personally reviewed the images and I agree with this report. WSN: [id number] Dictated By: Oneil Suazo MD Dictated Date/Time: 04/08/19 8:24 am Reviewed By: Ernesto Garcia MD Signed By: Ernesto Garcia MD Signed Date/Time: 04/08/19 8:29 am Transcribed By: ELISA Transcribed Date/Time: 04/08/19 4:22 am Vital Signs Most recent to oldest 1 2 3 [Reference Range]: Oxygen Saturation [94-100 93 % 97 % 93 % %] *L* (04/08/19 4:03 AM) *L* (04/08/19 6:21 AM) (04/07/19 11: 36 PM) Pulse Rate [55-90 bpm] 79 bpm 66 bpm 66 bpm (04/08/19 6:21 AM) (04/08/19 4:03 AM) (04/07/19 11:36 PM) Blood Pressure 136/60 mm Hg 136/60 mm Hg 140/68 mm Hg [90-138/55-84 mm Hg] (04/08/19 8:25 AM) (04/08/19 8:25 AM) *H* (04/08/19 6:21 A M) Respiratory Rate [16-30 16 br/min 16 br/min 19 br/mi n br/min] (04/08/19 6:21 AM) (04/08/19 4:03 AM) (04/07/19 11:36 PM) Temperature [96.8-100.4 97.9 DegF 97.8 DegF 97.9 Deg F DegF] (04/08/19 6:21 AM) (04/08/19 4:03 AM) (04/07/19 11:36 PM) Mode of Delivery (Oxygen) Room air Room air Room a ir (04/08/19 6:21 AM) (04/08/19 4:03 AM) (04/07/19 11:36 PM) Blood pressure sites Arm, left Arm, left Arm, left (04/08/19 6:21 AM) (04/08/19 4:03 AM) (04/07/19 11:36 PM) Temperature Route Oral Oral Oral (04/08/19 6:21 AM) (04/08/19 4:03 AM) (04/07/19 11:36 PM) Social History Social History Type Response Tobacco Use: Never smoker. Sex
--- NOTE | 2022-01-24 23:25 | P.HPHOSP_ITS ---
History of Present Illness Date of Service: 01/24/22 Chief Complaint: Back pain 81-year-old female with a past medical history of hypothyroidism, hypertension, anxiety, depression,? CHF, history of cardiac pacemaker, chronic back pain, osteoporosis, anemia requiring blood transfusions presented to the hospital to day with a chief complaint of back pain. Patient mentioned that last Saturday she came to the hospital for blood transfusion, after that she went home, while on the way to home she felt hungry went to the [facility] and the of she came out she tripped over the sidewalk and fell on her back; she managed to get to the home and when she was climbing the stairs to the 2nd floor where she has lived she tripped again and fell over, slightly mobile stapes, landed on the floor. Mentioned that she hit her head. Followed by she continued to have severe low back pain. But today she had increased back pain which she was not able to tolerate anymore hence decided to come to the hospital for further evaluation. Patient denies any chest pain or palpitations Denies any GI symptoms. Denies any fever chills cough. Patient denies any numbness tingling or focal weakness. Mentions that her activities of daily living are limited secondary to the back pain. Patient denies any urinary retention or stool incontinence. Review of all other systems is negative except mentioned above ER course: Per ER team patient noted to have low back pain, lumbar spine showed compression fractures-subacute; nonfocal examination; CT head and CT C-spine showed no acute findings; urinalysis abnormal consistent UTI-given ceftriaxone; EKG was abnormal consistent with new onset AFib with mild rapid ventricular response. Given p.o. diltiazem. Admitted to the hospital for further management. [facility], [facility] Medical History Anemia Colitis Congestive heart failure (CHF) GERD (gastroesophageal reflux disease) HTN (hypertension) Hx of cardiac pacemaker Hx of thyroid disease Family History Brother Cancer Sister Sister Dementia Son Esophageal cancer Surgical History H/O colonoscopy History of permanent cardiac pacemaker placement Hx of eye surgery Hx of hysterectomy Hx of knee surgery Hx of tracheostomy Hx of tubal ligation Social History Household Members: None Housing: House Are you a primary youth care specialist to a significant other at home: No Do you presently have visiting nurse or other home services: No Alcohol intake: current Alcohol intake frequency: a few times a month Alcohol type: hard liquor Patient Tobacco Use Status: Current everyday Tobacco user Tobacco use type: Cigarette Years Smoked: 41 Second Hand Smoke Exposure: No service: No Current occupational status: retired [employer] Allergies Allergy/AdvReac Type Severity Reaction Status Date / Time No Known Allergies Allergy Verified 01/12/22 08:40 [No Known Allergies*] Active Medications: Current Medications Acetaminophen (Acetaminophen 325 Mg Tablet) 650 mg PO Q6H PRN PRN Reason: Pain, Mild (Pain Scale 1-3) Cyclobenzaprine HCl (Cyclobenzaprine Hcl 10 Mg Tablet) 10 mg PO BEDTIME BALTA Fluoxetine HCl (Fluoxetine Hcl 20 Mg Capsule) 40 mg PO DAILY BALTA Heparin Sodium (Porcine) (Heparin Sodium,Porcine 5,000 Unit/Ml Vial) 5,000 unit SUBCUT Q12H BALTA Hydromorphone HCl (Hydromorphone Hcl 1 Mg/Ml Syringe) 0.5 mg IVPUSH Q4H PRN; Protocol PRN Reason: Pain, Severe (Pain Scale 7-10) Sodium Chloride (Ns) 1,000 mls @ 999 mls/hr IV .Q1H1M ONE Stop: 01/25/22 00:18 Ceftriaxone Sodium 1 gm/ (Sodium Chloride) 50 mls @ 100 mls/hr IV Q24H BALTA Levothyroxine Sodium (Levothyroxine Sodium 88 Mcg Tablet) 88 mcg PO DAILY BALTA Lisinopril (Lisinopril 10 Mg Tablet) 10 mg PO DAILY BALTA; Protocol Melatonin (Melatonin 3 Mg Tablet) 6 mg PO BEDTIME PRN PRN Reason: Insomnia Quetiapine Fumarate (Quetiapine Fumarate 300 Mg Tablet) 300 mg PO BEDTIME BALTA Senna (Sennosides 8.6 Mg Tablet) 17.2 mg PO BEDTIME PRN PRN Reason: Constipation Sodium Chloride (0.9 % Sodium Chloride Flush 3 Ml Syringe) 3 ml IVFLUSH [facility] Home Medications Medication Instructions Recorded Confirmed Last Taken Type fluoxetine 40 mg capsule 40 mg PO DAILY 06/21/20 01/24/2201/23/22 History ibuprofen 400 mg tablet 400 mg PO Q6H PRN Pain 06/21/20 01/24/22 01/23/22 History levothyroxine 88 mcg tablet 88 mcg PO DAILY 06/21/20 01/24/22 01/23/22 History quetiapine 300 mg tablet 300 mg PO BEDTIME 06/21/20 01/24/22 01/23/22 History lisinopril 10 mg tablet 10 mg PO DAILY 12/18/21 01/24/22 01/23/22 History Physical Exam Vital Signs and Narrative: Vital Signs: Last Vital Signs Temp 98.1 F 01/24/22 16:46 Pulse 92 01/24/22 21:28 Resp 16 01/24/22 21:28 BP 128/79 01/24/22 21:28 Pulse Ox 95 01/24/22 21:28 O2 Del Method 01/24/22 21:28 BMI result Body Mass Index 24.9 Gen: Appears be in no acute distress HEENT: NCAT, Moist mucosa. Pulmonary: Vesicular breath sounds, fair air entry CVS: Normal S1-S2 Abdomen: BS+, Soft, Nontender Extremities: Warm well perfused; straight leg raise test positive Neuro: Alert and awake. Oriented x3; grossly nonfocal Results Labs CBC and Chem 7: 01/28/22 06:13 01/28/22 06:13 Labs: Laboratory Results - last 24 hr 01/24/22 01/24/22 01/24/22 17:13 17:13 17:13 MCV 94.3 MCH 31.6 MCHC 33.6 RDW 21.4 H Plt Count 247 MPV 12.6 H Immature Gran % (Auto) 1.9 H Neut % (Auto) 71.3 Lymph % (Auto) 14.8 L [place] % (Auto) 9.2 Eos % (Auto) 2.5 Baso % (Auto) 0.3 Lymph # (Auto) 1.4 [place] # (Auto) 0.9 Eos # (Auto) 0.2 Baso # (Auto) 0.0 Abs Immat Gran (auto) 0.18 H Absolute Neuts (auto) 6.8 Absolute Nucleated RBC 0.060 H Nucleated RBC % (auto) 0.6 H PT INR Anion Gap 20 Estim Creat Clear Calc 34.9 Estimated GFR 46 Random Glucose 110 Lactic Acid Calcium 8.2 L D Total Bilirubin 0.6 AST 10 ALT 14 Alkaline Phosphatase 57 Total Protein 6.7 Albumin 3.8 Urine Color Urine Appearance Urine pH Ur Specific [place] Urine Protein Urine Glucose (UA) Urine Ketones Urine Blood Urine Nitrite Ur Leukocyte Esterase Urine RBC Urine WBC Ur Squamous Epith Cells Urine Bacteria Hyaline Casts COVID-19 (JUNG) Negative COVID-19 Clin Com See Note 01/24/22 01/24/22 01/24/22 17:13 19:24 21:27 MCV MCH MCHC RDW Plt Count MPV Immature Gran % (Auto) Neut % (Auto) Lymph % (Auto) [place] % (Auto) Eos % (Auto) Baso % (Auto) Lymph # (Auto) [place] # (Auto) Eos # (Auto) Baso # (Auto) Abs Immat Gran (auto) Absolute Neuts (auto) Absolute Nucleated RBC Nucleated RBC % (auto) PT 11.4 INR 1.0 Anion Gap Estim Creat Clear Calc Estimated GFR Random Glucose Lactic Acid 2.8 H* Calcium Total Bilirubin AST ALT Alkaline Phosphatase Total Protein Albumin Urine Color Yellow Urine Appearance Turbid Urine pH 6.0 Ur Specific [place] <= 1.005 Urine Protein 30 (1+) H Urine Glucose (UA) Negative Urine Ketones Negative Urine Blood Moderate (2+) H Urine Nitrite Negative Ur Leukocyte Esterase Large (3+) H Urine RBC 0-2 Urine WBC >50 H Ur Squamous Epith Cells 0-2 Urine Bacteria 4+ Hyaline Casts 0-2 COVID-19 (JUNG) COVID-19 Clin Com Imaging Radiologist's Impressions: Impressions Lumbar Spine X-Ray 01/24/22 17:55 IMPRESSION: Age indeterminant superior endplate compression fracture of the L3 vertebral body with approximately 30 percent loss of vertebral body height. Chronic superior endplate compression fractures at T12, L1, and L2. Lumbar Spine CT 01/24/22 20:03 IMPRESSION: 1. Chronic/old compression fractures L1 and L2, unchanged compared with 2014. 2. Additional compression fractures of T12 and L3, age-indeterminate but more likely chronic than subacute, albeit new compared with the 2014 exam. 3. Additional multilevel spondylosis of the lumbosacral spine. Cervical Spine CT 01/24/22 22:40 IMPRESSION: 1. No acute intracranial pathology. 2. No acute fracture or malalignment in the cervical spine. 3. Moderate multilevel degenerative spondylosis in cervical spine with multilevel neural foraminal encroachment. Head CT 01/24/22 22:40 IMPRESSION: 1. No acute intracranial pathology. 2. No acute fracture or malalignment in the cervical spine. 3. Moderate multilevel degenerative spondylosis in cervical spine with multilevel neural foraminal encroachment. Assessment and Plan (1) Atrial fibrillation, new onset: Status: Acute (2) Back pain: Status: Acute Plan 81-year-old female with a past medical history of hypothyroidism, hypertension, anxiety, depression,? CHF, history of cardiac pacemaker, chronic back pain, osteoporosis, anemia requiring blood transfusions presented to the hospital today with a chief complaint of back pain. Fall: Patient had mechanical fall on Saturday x2. Second time she slight over the states. Currently CT head, CT C-spine showed no acute findings. Back pain: CT of the L-spine showed chronic L1-L2 compression fractures, new T12 and L3 age indeterminate compression fractures. Pain control Fall precautions PT/OT Spine surgery follow-up Will also obtain vitamin-D levels Patient currently has nonfocal exam UTI: Continue ceftriaxone. Follow up cultures. Will obtain renal ultrasound. New onset AFib: Patient noted to be mild rapid ventricular response. Will give the patient on diltiazem 30 mg p.o. q.6 Patient has faheem Vasc score is 2-given history of anemia requiring blood transfusions will await further input from Cardiology and Hematology in terms of anticoagulation History of anemia: Presumed to be secondary to myelofibrosis versus anemia chronic disease. Prior stool guaiac test was negative. Patient denies any signs of bleeding. History of hypertension: Continue home lisinopril History of hypothyroidism: Continue home levothyroxine History of anxiety/depression: Continue home medications DVT prophylaxis: Subcu heparin Code status: Full code Quality Stroke Does the patient have a stroke diagnosis?: No VTE Prior VTE?: No VTE Risk Level:: Medical - moderate - high VTE Device Contraindication: Treatment Not Indicated VTE Drug Contraindication: N/A - Med Ordered
[2022-01-24] MEDS: 0.9 % Sodium Chloride 1,000 ML 999 ML IV (23:27)
[2022-01-24 23:32] LABS: Reflex Lactate? Lactic Acid Added
[2022-01-24 23:42] VITALS: BP 140/73; PULSE 102; RESP 15; O2SAT 96
[2022-01-24] MEDS: Heparin Sodium,Porcine 5,000 UNIT/ML VIAL 5000 UNIT SUBCUT (23:57)
[2022-01-24] MEDS: dilTIAZem HCL 30 MG TABLET PO (23:57)
[2022-01-25] VITALS (8 sets, daily range): BP systolic 98–139; BP diastolic 61–79; PULSE 86–139; RESP 12–18; TEMP 36.1–37; O2SAT 94–100; BMI 24.7
[2022-01-25 00:03] LABS: Thyroid Stimulating Hormone 27.74 uIU/mL (0.32-4.0)
[2022-01-25] MEDS: HYDROmorphone HCl 1 MG/ML SYRINGE 0.5 MG IVPUSH ×2 (03:02→20:06)
[2022-01-25] MEDS: Levothyroxine Sodium 88 MCG TABLET PO (06:47)
[2022-01-25 06:50] LABS: MANUAL DIFF FLAG NO
[2022-01-25 06:53] LABS: Basophils Percent Auto 0.5 % (0-2); Eosinophils Absolute Auto 0.3 X10*3/uL (0.0-0.4); Eosinophils Percent Auto 3.8 % (0-4); Hematocrit 26.3 % (37.0-47.0); Hemoglobin 8.7 g/dl (12.0-16.0); Imm Gran Abs Auto 0.15 X10*3/uL (0.00-0.03); Imm Gran Pct Auto 1.9 % (0.0-0.4); Lymphocytes Percent Auto 12.1 % (20-40); Mean Corpuscular HGB Conc 33.1 g/dl (31.0-35.0); Mean Corpuscular Hemoglobin 31.4 pg (27.0-33.0); Mean Corpuscular Volume 94.9 fL (80.0-98.0); Mean Platelet Volume 12.1 fL (9.4-12.3); Monocytes Absolute Auto 0.8 X10*3/uL (0.1-1.2); Monocytes Percent Auto 10.2 % (2-11); NRBC Pct Auto 0.6 /100WBC (0.0-0.2); Neutrophils Absolute Auto 5.7 x10*3/uL (2.0-8.3); Neutrophils Percent Auto 71.5 % (45-73); Platelet Count 221 X10*3/uL (160-400); Red Blood Count 2.77 X10*6/uL (4.20-5.50); Red Cell Distribution Width 21.3 % (11.0-16.0)
--- NOTE | 2022-01-25 07:00 | CA_ITS ---
Transthoracic Echocardiogram Patient (Last, First, Middle): Kelly Razo C Gender: Female Date of : 1940 Age: 81 Procedure Date: 01/25/2022 Procedure Type: Transthoracic Echocardiogram Location: ER Height: 162.56 cm Weight: 65.77 kg BSA: 1.71 m2 Heart Rate: bpm BP: 118 / 79 mmHg Liaison Officer: TO Referring MD: Patrice Mercer MD Symptoms: afib Study Quality: Fair/Contrast Conclusions: - Normal left ventricular size, thickness, and systolic function. The visually estimated ejection fraction is between 60-65%. - Mildly increased right ventricular cavity size. There is normal right ventricular systolic function. There is a pacemaker wire seen in the right ventricle. - The left atrium is moderately dilated. The right atrium is mildly dilated. Findings Procedure Information Contrast agent, definity, is being given per protocol without apparent complications. Left Ventricle Normal left ventricular size, thickness, and systolic function. The visually estimated ejection fraction is between 60-65%. There is no evidence of regional wall motion abnormalities. Diastolic function is indeterminate on the basis of available data. Right Ventricle Mildly increased right ventricular cavity size. There is normal right ventricular systolic function. There is a pacemaker wire seen in the right ventricle. Atria The left atrium is moderately dilated. The right atrium is mildly dilated. Aortic Valve There is a normal trileaflet aortic valve. There is mild calcification of the aortic valve. There is no aortic valve stenosis. There is trace (trivial) aortic valve regurgitation. Mitral Valve Normal mitral valve structure and function. There is trace mitral valve regurgitation. There is no mitral valve stenosis. Pulmonic Valve Normal pulmonic valve structure and function. There is trace pulmonic valve regurgitation. Tricuspid Valve Normal tricuspid valve structure and function. There is mild to moderate tricuspid valve regurgitation. Normal right atrial pressure. There is no evidence of pulmonary hypertension. Great Vessels There is mild dilatation of the ascending aorta measuring 3.40 cm. The visualized portions of the pulmonary artery and branches are normal. Venous The inferior vena cava is normal in size and collapses greater than 50% with inspiration. Pericardium/Pleural There is no evidence of pericardial effusion. Measurements 2D Linear Measurements IVSd: 1.04 0.6-0.9/0.6-1.0 cm LVIDd: 4.72 3.9-5.3/4.2-5.9 cm LVIDd Index: 2.76 2.4-3.2/2.2-3.1 cm/m2 LVIDs: 2.93 2.0-3.6 cm LVPWd: 0.85 0.7-1.1 cm LA Diam: 3.90 2.7-3.8/3.0-4.0 cm LAIDs Index: 2.28 1.5-2.3 cm/m2 LV Mass: 190.72 67-162/88-224 g LV Mass Index: 111.53 43-95/49-115 g/m2 LVOT Diam: 2.10 3.0+(-)1.3 cm 2D Systolic Function EF 4C: 67.70 >55% EF 2C: 67.00 >55% EF BiP: 67.10 >55% Mitral Valve MV Pk E: 1.41 MV Decel Time: 177.00 E'Lateral: 11.90 E'Medial: 9.03 E/E' Med: 15.60 E/E' Lat: 11.80 PHT: 52.00 MVA PHT: 4.23 Decel [place]: 7.96 Aortic Valve AoV Pk Bala: 1.95 AoV Mn Bala: 1.36 AoV VTI: 0.36 AoV Pk Grad: 15.00 Aov Mn Grad: 8.00 BERYL Cont.VTI: 1.87 LVOT LVOT Pk Bala: 1.11 LVOT Mn Bala: 0.69 LVOT VTI: 0.19 LVOT Pk Grad: 5.00 LVOT Mn Grad: 2.00 LVOT Diam: 2.10 LVOT Area: 3.46 Diastolic Function MV Pk E: 1.41 E'Medial: 9.03 E/E' Med: 15.60 E' Laterial: 11.90 E/E' Lat: 11.80 Right Ventricle TAPSE (mm): 16.60 TVS' Bala: 10.30 Tricuspid Valve TR Pk Bala: 2.62 TR Pk Grad: 27.00 RA Press: 3.00 RVSP: 30.00 Great Vessels Aorta Sinus of Valsalva: 3.18 2.0-3.[address] [place]: 2.42 1.7-3.4 cm Ao Asc: 3.40 2.1-3.4 cm Updated in Other Vendor System with Status of Final Alex Encarnacion MD electronically signed on 01/25/2022 9:18:47 PM with status of Final
[2022-01-25 07:10] LABS: Anion Gap 14 (12-20); Blood Urea Nitrogen 16 mg/dL (9-16); Calcium 7.8 mg/dL (8.4-10.2); Carbon Dioxide 23 mmol/L (22-29); Chloride 103 mmol/L (96-108); Creatinine Clr Calc Pharmacy 35.2; Estimated Glomerular Filt Rate 46; Glucose Random 101 mg/dL (60-115); Potassium 4.4 mmol/L (3.3-5.1); Sodium 136 mmol/L (135-145)
[2022-01-25 07:28] LABS: Thyroid Stimulating Hormone 31.56 uIU/mL (0.32-4.0); Vitamin D 25-OH Total 17.4 ng/mL (>30)
[2022-01-25] MEDS: FLUoxetine HCl 20 MG CAPSULE 40 MG PO (08:16)
[2022-01-25] MEDS: 0.9 % Sodium Chloride Flush 3 ML SYRINGE IVFLUSH ×3 (08:16→20:07)
[2022-01-25] MEDS: lisinopriL 10 MG TABLET PO (08:16)
[2022-01-25] MEDS: dilTIAZem HCL 30 MG TABLET PO ×4 (08:16→20:06)
--- NOTE | 2022-01-25 11:26 | HO.PM.IMPN ---
Subjective Subjective Date of Service: 01/25/22 Interval History: cc: fall interval history:back pain Cardiovascular Cardiovascular: Reports no additional cardiovascular complaints Respiratory Respiratory: Reports no additional respiratory complaints Physical Exam Vital Signs: Vital Signs: Last Vital Signs Temp 98.1 F 01/24/22 16:46 Pulse 87 01/25/22 08:15 Resp 12 01/25/22 07:15 BP 121/74 01/25/22 08:15 Pulse Ox 95 01/25/22 07:15 O2 Del Method 01/25/22 07:15 BMI result Body Mass Index 24.9 General: AO X 3, no acute distress Resp: CTA bilateral, no accessory muscles used CVS: S1,S2,RRR GI: soft, non tender, non distended Neuro: motor grossly intact, alert Psych: appropriate affect, appropriate insight Objective Data Active Medications Acetaminophen (Acetaminophen 325 Mg Tablet) 650 mg PO Q6H PRN PRN Reason: Pain, Mild (Pain Scale 1-3) Cyclobenzaprine HCl (Cyclobenzaprine Hcl 10 Mg Tablet) 10 mg PO BEDTIME [facility] Diltiazem HCl (Diltiazem Hcl 30 Mg Tablet) 30 mg PO QID [facility]; Protocol Last Admin: 01/25/22 08:16 Dose: 30 mg Documented By: RAHAT Fluoxetine HCl (Fluoxetine Hcl 20 Mg Capsule) 40 mg PO DAILY [facility] Last Admin: 01/25/22 08:16 Dose: 40 mg Documented By: RAHAT Heparin Sodium (Porcine) (Heparin Sodium,Porcine 5,000 Unit/Ml Vial) 5,000 unit SUBCUT Q12H [facility] Last Admin: 01/24/22 23:57 Dose: 5,000 unit Documented By: SARAH Hydromorphone HCl (Hydromorphone Hcl 1 Mg/Ml Syringe) 0.5 mg IVPUSH Q4H PRN; Protocol PRN Reason: Pain, Severe (Pain Scale 7-10) Last Admin: 01/25/22 03:02 Dose: 0.5 mg Documented By: SARAH Ceftriaxone Sodium 1 gm/ (Sodium Chloride) 50 mls @ 100 mls/hr IV Q24H [facility] Levothyroxine Sodium (Levothyroxine Sodium 112 Mcg Tablet) 112 mcg PO 0600 [facility] Lisinopril (Lisinopril 10 Mg Tablet) 10 mg PO DAILY [facility]; Protocol Last Admin: 01/25/22 08:16 Dose: 10 mg Documented By: RAHAT Melatonin (Melatonin 3 Mg Tablet) 6 mg PO BEDTIME PRN PRN Reason: Insomnia Quetiapine Fumarate (Quetiapine Fumarate 300 Mg Tablet) 300 mg PO BEDTIME [facility] Senna (Sennosides 8.6 Mg Tablet) 17.2 mg PO BEDTIME PRN PRN Reason: Constipation Sodium Chloride (0.9 % Sodium Chloride Flush 3 Ml Syringe) 3 ml IVFLUSH QSHIFT [facility] Last Admin: 01/25/22 08:16 Dose: 3 ml Documented By: RAHAT Labs CBC & Chem 7: 01/25/22 06:41 01/25/22 06:41 Labs: Laboratory Results - last 24 hr 01/24/22 01/24/22 01/24/22 17:13 17:13 17:13 MCV 94.3 MCH 31.6 MCHC 33.6 RDW 21.4 H Plt Count 247 MPV 12.6 H Immature Gran % (Auto) 1.9 H Neut % (Auto) 71.3 Lymph % (Auto) 14.8 L [place] % (Auto) 9.2 Eos % (Auto) 2.5 Baso % (Auto) 0.3 Lymph # (Auto) 1.4 [place] # (Auto) 0.9 Eos # (Auto) 0.2 Baso # (Auto) 0.0 Abs Immat Gran (auto) 0.18 H Absolute Neuts (auto) 6.8 Absolute Nucleated RBC 0.060 H Nucleated RBC % (auto) 0.6 H PT INR Anion Gap 20 Estim Creat Clear Calc 34.9 Estimated GFR 46 Random Glucose 110 Lactic Acid Lactic Acid F/U @ 2Hr Calcium 8.2 L D Total Bilirubin 0.6 AST 10 ALT 14 Alkaline Phosphatase 57 Troponin I High Sens Total Protein 6.7 Albumin 3.8 25-OH Vitamin D Total TSH 27.74 H Urine Color Urine Appearance Urine pH Ur Specific [place] Urine Protein Urine Glucose (UA) Urine Ketones Urine Blood Urine Nitrite Ur Leukocyte Esterase Urine RBC Urine WBC Ur Squamous Epith Cells Urine Bacteria Hyaline Casts COVID-19 (JUNG) Negative COVID-19 Clin Com See Note 01/24/22 01/24/22 01/24/22 17:13 17:13 19:24 MCV MCH MCHC RDW Plt Count MPV Immature Gran % (Auto) Neut % (Auto) Lymph % (Auto) [place] % (Auto) Eos % (Auto) Baso % (Auto) Lymph # (Auto) [place] # (Auto) Eos # (Auto) Baso # (Auto) Abs Immat Gran (auto) Absolute Neuts (auto) Absolute Nucleated RBC Nucleated RBC % (auto) PT 11.4 INR 1.0 Anion Gap Estim Creat Clear Calc Estimated GFR Random Glucose Lactic Acid Lactic Acid F/U @ 2Hr Calcium Total Bilirubin AST ALT Alkaline Phosphatase Troponin I High Sens 7.6 Total Protein Albumin 25-OH Vitamin D Total TSH Urine Color Yellow Urine Appearance Turbid Urine pH 6.0 Ur Specific [place] <= 1.005 Urine Protein 30 (1+) H Urine Glucose (UA) Negative Urine Ketones Negative Urine Blood Moderate (2+) H Urine Nitrite Negative Ur Leukocyte Esterase Large (3+) H Urine RBC 0-2 Urine WBC >50 H Ur Squamous Epith Cells 0-2 Urine Bacteria 4+ Hyaline Casts 0-2 COVID-19 (JUNG) COVID-19 [facility] 01/24/22 01/25/22 01/25/22 21:27 00:01 06:41 MCV MCH MCHC RDW Plt Count MPV Immature Gran % (Auto) Neut % (Auto) Lymph % (Auto) [place] % (Auto) Eos % (Auto) Baso % (Auto) Lymph # (Auto) [place] # (Auto) Eos # (Auto) Baso # (Auto) Abs Immat Gran (auto) Absolute Neuts (auto) Absolute Nucleated RBC Nucleated RBC % (auto) PT INR Anion Gap Estim Creat Clear Calc Estimated GFR Random Glucose Lactic Acid 2.8 H* Lactic Acid F/U @ 2Hr 1.0 Calcium Total Bilirubin AST ALT Alkaline Phosphatase Troponin I High Sens Total Protein Albumin 25-OH Vitamin D Total 17.4 TSH 31.56 H Urine Color Urine Appearance Urine pH Ur Specific [place] Urine Protein Urine Glucose (UA) Urine Ketones Urine Blood Urine Nitrite Ur Leukocyte Esterase Urine RBC Urine WBC Ur Squamous Epith Cells Urine Bacteria Hyaline Casts COVID-19 (JUNG) COVID-19 [facility]ond 01/25/22 01/25/22 06:41 06:41 MCV 94.9 MCH 31.4 MCHC 33.1 RDW 21.3 H Plt Count 221 MPV 12.1 Immature Gran % (Auto) 1.9 H Neut % (Auto) 71.5 Lymph % (Auto) 12.1 L [place] % (Auto) 10.2 Eos % (Auto) 3.8 Baso % (Auto) 0.5 Lymph # (Auto) 1.0 L [place] # (Auto) 0.8 Eos # (Auto) 0.3 Baso # (Auto) 0.0 Abs Immat Gran (auto) 0.15 H Absolute Neuts (auto) 5.7 Absolute Nucleated RBC 0.050 H Nucleated RBC % (auto) 0.6 H PT INR Anion Gap 14 Estim Creat Clear Calc 35.2 Estimated GFR 46 Random Glucose 101 Lactic Acid Lactic Acid F/U @ 2Hr Calcium 7.8 L Total Bilirubin AST ALT Alkaline Phosphatase Troponin I High Sens Total Protein Albumin 25-OH Vitamin D Total TSH Urine Color Urine Appearance Urine pH Ur Specific [place] Urine Protein Urine Glucose (UA) Urine Ketones Urine Blood Urine Nitrite Ur Leukocyte Esterase Urine RBC Urine WBC Ur Squamous Epith Cells Urine Bacteria Hyaline Casts COVID-19 (JUNG) COVID-19 Clin Com Microbiology Microbiology Results: Microbiology 01/24/22 Unknown Urine Culture - Preliminary Urine clean catch - Urine alvares top Culture in progress. Assessment and Plan (1) Atrial fibrillation, new onset: Status: Acute Plan 81-year-old female with past medical history of hypothyroid, chronic alcohol dependence, hypertension, anxiety/depression, status post pacemaker, chronic back pain, osteoporosis, anemia of chronic disease presented with back pain, found to have new onset atrial fibrillation and urinary tract infection Mechanical fall with T12, L3 age indeterminate fractures Pain control PT/OT Urinary tract infection Ceftriaxone, follow-up cultures Atrial fibrillation Appears to be new onset, now in normal sinus rhythm Follow-up cardiology Continue [facility] [place] Follow-up echo Anemia of chronic disease Stable Hypothyroid Elevated TSH, will increase Synthroid to 112 mcg from 88 Follow-up TSH in 1 month Hypertension Lisinopril Chronic back pain Flexeril Mood disorder Prozac, Seroquel DVT prophylaxis with Lovenox Full code reason for continued hospitalization: pain control, awatiing cultures Quality Stroke Does the patient have a stroke diagnosis?: No VTE Prior VTE?: No VTE Risk Level:: Medical - moderate - high VTE Device Contraindication: Treatment Not Indicated VTE Drug Contraindication: N/A - Med Ordered
--- NOTE | 2022-01-25 11:29 | MHC.CM.PN ---
Attempted to meet with patient in regards to dsicahrge planning. Echo currently being performed. Will attempt to meet again. Continue to monitor for d/c needs.
--- NOTE | 2022-01-25 14:19 | MHC.CM.PN ---
Met with patient in regards to discharge planning. Patient lives in a 3 family house. One of her daughters lives on the 1st floor. One of her daughters lives on the 3rd floor. Patient lives on the 2nd floor. Patient recently started ambulating with a walker. PCP verified. Patient believes she has a HCP at PCP's office. T/w spoke with Dr Chaudhari's office. No HCP on file. Patient received 2 Pfizer vaccines. IMM explained and signed. Physical therapy eval completed. Short term rehab is recommended. Patient is declining STR rehab at this time. However is agreeable to [facility] for physical therapy at home. Referral made via [facility]. Patient's daughter will transport patient home when medically stable. Continue to monitor for d/c needs.
--- NOTE | 2022-01-25 15:57 | P.CNHO_ITS ---
Subjective - Subjective Chief complaint: Consult for: Anemia of chronic disease. 2. Back pain. Patient: known to practice within the last 3 years Consult date: 01/25/22 Requesting Physician: Page. Primary Care Provider: Krissy Villarreal MD Medical Summary: DIAGNOSIS: ANEMIA OF CHRONIC DISEASE. CURRENT THERAPY: PROCRIT. HPI - Consult Narrative Reason for consult: CONSULT FOR: ACD. Narrative: Kelly Razo is a pleasant 81 year old lady, with a past medical history of anemia requiring blood transfusions presented to the hospital 01/24 with a chief complaint of back pain. She mentioned that last Saturday she came to the hospital for blood transfusion, after that she went home. While on the way to home she felt hungry went to the [employer]. When she came out, she tripped over the sidewalk and fell on her back; She managed to get to the home and when she was climbing the stairs to the 2nd floor, she tripped again and fell over, slightly mobile staps, landed on the floor. She hit her head. Following that she continued to have severe low back pain. Yesterday she had increased back pain. When she was not able to tolerate anymore, she decided to come to the hospital for further evaluation. Patient denies any chest pain or palpitations Denies any GI symptoms. Denies any fever chills cough. Patient denies any numbness tingling or focal weakness. Mentions that her activities of daily living are limited secondary to the back pain. Patient denies any urinary retention or stool incontinence. Review of all other systems is negative except mentioned above. ER course: Patient noted to have low back pain, lumbar spine showed compression fractures- subacute; nonfocal examination; CT head and CT C-spine showed no acute findings; urinalysis abnormal consistent UTI-given ceftriaxone; EKG was abnormal consistent with new onset AFib with mild rapid ventricular response. Given p.o. diltiazem. Admitted to the hospital for further management. [facility] Medical History: hypothyroidism, hypertension, anxiety, depression,? CHF, history of cardiac pacemaker, chronic back pain, osteoporosis. Anemia Colitis Congestive heart failure (CHF) GERD (gastroesophageal reflux disease) HTN (hypertension) Hx of cardiac pacemaker Hx of thyroid disease Family History: Brother Cancer Sister Sister Dementia Son Esophageal cancer Surgical History: Review of Systems - Constitutional Reports system reviewed and no additional complaints, except as documented, Reports fatigue, Reports frequent falls, Reports lack of energy, Reports poor appetite, Reports weakness, Reports weight loss - Eyes Reports system reviewed and no additional complaints, except as documented - ENT Reports system reviewed and no additional complaints, except as documented - Cardiovascular Reports system reviewed and no additional complaints, except as documented - Respiratory Reports no additional respiratory complaints - Gastrointestinal Reports system reviewed and no additional complaints, except as documented - Genitourinary Reports no additional female genitourinary complaints - Musculoskeletal Reports system reviewed and no additional complaints, except as documented, Reports abnormal walking, Reports back pain, Reports muscle weakness - Integumentary/Breasts Skin/Breast: Reports no additional skin complaints - Neurologic Reports system reviewed and no additional complaints, except as documented - Psychiatric Reports system reviewed and no additional complaints, except as documented - Endocrine Reports no additional endocrine complaints - Hematologic/Lymphatic Reports system reviewed and no additional complaints, except as documented - Allergic/Immunologic Reports system reviewed and no additional complaints, except as documented Oncology Screenings - ECOG Performance Status ECOG Performance Status: 2 [facility] Medical History: Medical History (Last Updated 01/29/22 @ 13:42 by Selina Kahn, RELAY OPERATOR-C) Anemia Colitis Congestive heart failure (CHF) GERD (gastroesophageal reflux disease) HTN (hypertension) Hx of cardiac pacemaker Hx of thyroid disease Functional capacity: wheelchair bound Patient : No Family History: Family History (Last Reviewed 01/24/22 @ 19:27 by Warner Velasquez MD) Brother Cancer Sister Sister Dementia Son Esophageal cancer Surgical History: Surgical History (Last Reviewed 01/24/22 @ 19:27 by Warner Velasquez MD) H/O colonoscopy History of permanent cardiac pacemaker placement Hx of eye surgery Hx of hysterectomy Hx of knee surgery Hx of tracheostomy Hx of tubal ligation Social History: Social History (Last Reviewed 01/24/22 @ 19:27 by Warner Velasquez MD) Living Situation History: Household Members: None Housing: House Are you a primary primary care provider to a significant other at home: No Do you presently have visiting nurse or other home services: No Tobacco History: Patient Tobacco Use Status: Current everyday Tobacco Tobacco use type: Cigarette Years Smoked: 41 Second Hand Smoke Exposure: No Occupation Assessmet: service: No Current occupational status: retired Home Medications and Allergies Current Medications: Current Medications Acetaminophen (Acetaminophen 325 Mg Tablet) 650 mg PO Q6H PRN PRN Reason: Pain, Mild (Pain Scale 1-3) Cyclobenzaprine HCl (Cyclobenzaprine Hcl 10 Mg Tablet) 10 mg PO BEDTIME [facility] Diltiazem HCl (Diltiazem Hcl 30 Mg Tablet) 30 mg PO QID [facility]; Protocol Last Admin: 01/25/22 12:20 Dose: 30 mg Enoxaparin Sodium (Enoxaparin Sodium 40 Mg/0.4 Ml Syringe) 40 mg SUBCUT Q24H [facility] Fluoxetine HCl (Fluoxetine Hcl 20 Mg Capsule) 40 mg PO DAILY [facility] Last Admin: 01/25/22 08:16 Dose: 40 mg Hydromorphone HCl (Hydromorphone Hcl 1 Mg/Ml Syringe) 0.5 mg IVPUSH Q4H PRN; Protocol PRN Reason: Pain, Severe (Pain Scale 7-10) Last Admin: 01/25/22 03:02 Dose: 0.5 mg Ceftriaxone Sodium 1 gm/ (Sodium Chloride) 50 mls @ 100 mls/hr IV Q24H [facility] Levothyroxine Sodium (Levothyroxine Sodium 112 Mcg Tablet) 112 mcg PO 0600 [facility] Lisinopril (Lisinopril 10 Mg Tablet) 10 mg PO DAILY [facility]; Protocol Last Admin: 01/25/22 08:16 Dose: 10 mg Melatonin (Melatonin 3 Mg Tablet) 6 mg PO BEDTIME PRN PRN Reason: Insomnia Quetiapine Fumarate (Quetiapine Fumarate 300 Mg Tablet) 300 mg PO BEDTIME [facility] Senna (Sennosides 8.6 Mg Tablet) 17.2 mg PO BEDTIME PRN PRN Reason: Constipation Sodium Chloride (0.9 % Sodium Chloride Flush 3 Ml Syringe) 3 ml IVFLUSH QSHIFT [facility] Last Admin: 01/25/22 08:16 Dose: 3 ml Home Medications Medication Instructions Recorded Confirmed Type fluoxetine 40 mg capsule 40 mg PO DAILY 06/21/20 01/24/22 History ibuprofen 400 mg tablet 400 mg PO Q6H PRN Pain 06/21/20 01/24/22 History levothyroxine 88 mcg tablet 88 mcg PO DAILY 06/21/20 01/24/22 History quetiapine 300 mg tablet 300 mg PO BEDTIME 06/21/20 01/24/22 History lisinopril 10 mg tablet 10 mg PO DAILY 12/18/21 01/24/22 History Allergies Allergy/AdvReac Type Severity Reaction Status Date / Time No Known Allergies Allergy Verified 01/12/22 08:40 [No Known Allergies*] Physical Exam Vital signs: Vital Signs Temp 98.0 F 01/25/22 14:44 Pulse 91 01/25/22 14:44 Resp 16 01/25/22 14:44 BP 119/71 01/25/22 14:44 Pulse Ox 100 01/25/22 14:44 O2 Del Method 01/25/22 14:44 Intake & Output 01/24/22 01/25/22 01/25/22 18:59 06:59 18:59 Intake Total 50 / 50 Balance 50 / 50 Intake: Intake, IV Amount 50 / 50 cefTRIAXone sodium 1 gm In 0.9 50 / 50 % Sodium Chloride 50 ml @ 100 mls/hr IV ONCE ONE Rx#: [id number] Other: Weight 65.771 kg Weight 65.771 kg - Constitutional Present: moderate distress - Routine HEENT Exam Head: Present: normal inspection, normocephalic ENT: Present: mucous membranes moist - Routine Neck Exam Present: supple - Routine Respiratory Exam Present: CTAB - Routine Cardiovascular Exam Cardiovascular: Present: RRR, S1, S2 - Routine Abdominal Exam Present: normal bowel sounds, nontender - Routine Extremities Exam Present: nontender - Routine Skin Exam Present: intact - Routine Neurological Exam Present: alert, oriented X3 - Detailed Neurological Exam: Coma Scale Eye Opening: Spontaneous (4) Verbal Response: Oriented (5) Motor Response: Obeys commands (6) [place] Coma Scale Total: 15 - Routine Psychiatric Exam Present: depressed Hem/Onc Consult Result - Labs CBC & Chem 7: 01/31/22 05:50 01/31/22 05:50 Labs: Short CBC 01/24/22 01/25/22 Range/Units 17:13 06:41 WBC 9.5 8.0 (4.8-10.8) X10*3/uL Hgb 9.4 L 8.7 L (12.0-16.0) g/dl Hct 28.0 L 26.3 L (37.0-47.0) % Plt Count 247 221 (160-400) X10*3/uL BMP 01/24/22 01/25/22 17:13 06:41 Sodium 135 136 Potassium 3.9 4.4 Chloride 102 103 Carbon Dioxide 17 L 23 BUN 16 D 16 Creatinine 1.14 1.13 Calcium 8.2 L D 7.8 L Liver Function 01/24/22 Range/Units 17:13 Total Bilirubin 0.6 (0.0-1.0) mg/dL AST 10 (5-31) U/L ALT 14 (0-31) U/L Alkaline Phosphatase 57 (39-117) U/L Albumin 3.8 (3.5-5.0) g/dL Urine 01/24/22 Range/Units 19:24 Urine Color Yellow Urine Appearance Turbid Urine pH 6.0 (5.0-9.0) Ur Specific [place] <= 1.005 (1.005-1.025) Urine Protein 30 (1+) H (Neg-Trace) mg/dL Urine Glucose (UA) Negative (Negative) mg/dL Assessment and Plan Patient Active problem list reviewed?: Yes (1) Anemia Status: Acute Assessment and plan: 81 year-old lady with history of: 1. Normochromic normocytic Anemia. Her blood count has fluctuated over the years. Hemoglobin in August of 2018 was 10.4. DIFFERENTIAL DIAGNOSIS: 1. Iron deficiency anemia: Serum iron 90/IBC 319/ saturation 28/ferritin 520. 2. B12 or folate deficiency: B12 685/folate 19.1. 3. ACD: Most likely she has this. Her creatinine is elevated. She could have lupus nephritis. She is being worked up for that. 4. Hemolytic anemia: Reticulocyte 1.6/haptoglobin 177/LDH 223. 5. Underlying bone marrow infiltrative disorder: SIEP in normal. I proceeded with further evaluation. I checked iron studies and ferritin. Iron studies normal/ferritin elevated. l checked B12 and folate levels: These are normal. Check hemolytic screen: This is normal as well. SIEP: Within normal limits. She had a GI evaluation, in March 2014, had a colonoscopy. Differential diagnosis: Anemia of chronic disease, versus a bone marrow infiltrative disorder. Bone marrow exam from 08/23 revealed: Differential diagnosis includes MDS with multi lineage dysplasia and ring sideroblasts, drugs and toxins. Flow cytometry: Nonspecific T-cell dominant profile. Diagnostic features of a B-cell new for proliferative disorder not seen. No increase in CD 34 positive or blast gate events. Cytogenetics: Normal. Fish panel: Normal. Her bone marrow came back normal, so she was started on Procrit therapy, for ACD. That does appear to be working. On 10/18, hemoglobin of 7.8. She received 2 units of blood. l checked stools for occult blood. This came back negative. In may, her hemoglobin was down to 7.5. She did end up receiving 2 units of blood. Unfortunate lady, with past medical history of hypothyroid, chronic alcohol dependence, hypertension, anxiety/depression, status post pacemaker, chronic back pain, osteoporosis. Anemia of chronic disease presented with back pain, found to have new onset atrial fibrillation and urinary tract infection. She is feeling quite fatigued. Hemoglobin from today is rather low at 8.7 gms. Previously it was 8.6 in September. She has not been able to get her Procrit on account of insurance reasons. Waiting for authorization. PLAN: Mechanical fall with T12, L3 age indeterminate fractures: Pain control, PT/.OT Urinary tract infection: Ceftriaxone, follow-up cultures. Atrial fibrillation: Appears to be new onset, now in normal sinus rhythm. Follow-up cardiology. Continue Cardizem. Follow-up echo. We have requested for a PA for Procrit urgently. She will return on Saturday to receive her Procrit dose. She will continue to recieve it every 2 weeks. Will follow her blood count. Thank you for the consult, Will follow along with you, Cc: Thank you, CC: Dr. Krissy Villarreal. Dr. Aniya Schwartz. - Time Spent With Patient Time Spent with Patient (in minutes): 30
--- NOTE | 2022-01-25 16:42 | PM.CNCAR ---
History of Present Illness History of Present Illness Date of Service: 01/25/22 Chief complaint: Afib Narrative: 81-year-old female with fall and compression fracture. She has chronic anemia and has been requiring blood transfusions. She was noted to be in AFib with RVR on admission. She is denying any palpitations. She has no chest pain or shortness of breath. Her telemetry currently is showing sinus rhythm. Other than back pain she currently has PMFSH Past Medical History Medical History Anemia Colitis Congestive heart failure (CHF) GERD (gastroesophageal reflux disease) HTN (hypertension) Hx of cardiac pacemaker Hx of thyroid disease Functional capacity: wheelchair bound Family History Family History Brother Cancer Sister Sister Dementia Son Esophageal cancer Surgical History Surgical History H/O colonoscopy History of permanent cardiac pacemaker placement Hx of eye surgery Hx of hysterectomy Hx of knee surgery Hx of tracheostomy Hx of tubal ligation Social History Social History Household Members: None Housing: House Are you a primary vocational childcare teacher to a significant other at home: No Do you presently have visiting nurse or other home services: No Alcohol intake: current Alcohol intake frequency: a few times a month Alcohol type: hard liquor Patient Tobacco Use Status: Current everyday Tobacco user Years Smoked: 41 Use of substances other than those prescribed or required for medical reasons: No Advance Directives: No Advance Directives Information Provided: No Patient : No service: No Current occupational status: retired [employer] Allergies Allergy/AdvReac Type Severity Reaction Status Date / Time No Known Allergies Allergy Verified 01/12/22 08:40 [No Known Allergies*] Active Medications: Current Medications Acetaminophen (Acetaminophen 325 Mg Tablet) 650 mg PO Q6H PRN PRN Reason: Pain, Mild (Pain Scale 1-3) Cyclobenzaprine HCl (Cyclobenzaprine Hcl 10 Mg Tablet) 10 mg PO BEDTIME [facility] Diltiazem HCl (Diltiazem Hcl 30 Mg Tablet) 30 mg PO QID [facility]; Protocol Last Admin: 01/25/22 16:35 Dose: 30 mg Enoxaparin Sodium (Enoxaparin Sodium 40 Mg/0.4 Ml Syringe) 40 mg SUBCUT Q24H [facility] Fluoxetine HCl (Fluoxetine Hcl 20 Mg Capsule) 40 mg PO DAILY [facility] Last Admin: 01/25/22 08:16 Dose: 40 mg Hydromorphone HCl (Hydromorphone Hcl 1 Mg/Ml Syringe) 0.5 mg IVPUSH Q4H PRN; Protocol PRN Reason: Pain, Severe (Pain Scale 7-10) Last Admin: 01/25/22 03:02 Dose: 0.5 mg Ceftriaxone Sodium 1 gm/ (Sodium Chloride) 50 mls @ 100 mls/hr IV Q24H [facility] Levothyroxine Sodium (Levothyroxine Sodium 112 Mcg Tablet) 112 mcg PO 0600 [facility] Lisinopril (Lisinopril 10 Mg Tablet) 10 mg PO DAILY [facility]; Protocol Last Admin: 01/25/22 08:16 Dose: 10 mg Melatonin (Melatonin 3 Mg Tablet) 6 mg PO BEDTIME PRN PRN Reason: Insomnia Quetiapine Fumarate (Quetiapine Fumarate 300 Mg Tablet) 300 mg PO BEDTIME [facility] Senna (Sennosides 8.6 Mg Tablet) 17.2 mg PO BEDTIME PRN PRN Reason: Constipation Sodium Chloride (0.9 % Sodium Chloride Flush 3 Ml Syringe) 3 ml IVFLUSH QSHIFT [facility] Last Admin: 01/25/22 16:36 Dose: 3 ml Home Medications Medication Instructions Recorded Confirmed Last Taken Type fluoxetine 40 mg capsule 40 mg PO DAILY 06/21/20 01/24/22 01/23/22 History ibuprofen 400 mg tablet 400 mg PO Q6H PRN Pain 06/21/20 01/24/22 01/23/22 History levothyroxine 88 mcg tablet 88 mcg PO DAILY 06/21/20 01/24/22 01/23/22 History quetiapine 300 mg tablet 300 mg PO BEDTIME 06/21/20 01/24/22 01/23/22 History lisinopril 10 mg tablet 10 mg PO DAILY 12/18/21 01/24/22 01/23/22 History Physical Exam Vital Signs: Vital Signs: Last Vital Signs Temp 98.0 F 01/25/22 14:44 Pulse 91 01/25/22 14:44 Resp 16 01/25/22 14:44 BP 119/71 01/25/22 14:44 Pulse Ox 100 01/25/22 14:44 O2 Del Method 01/25/22 14:44 BMI result Body Mass Index 24.9 GENERAL APPEARANCE: in no acute distress, pleasant. NECK: no carotid bruit, no jugular venous distention. SKIN: no suspicious lesions, warm and dry. HEART: no murmurs, regular rate and rhythm. LUNGS: clear to auscultation bilaterally. ABDOMEN: soft, nontender. EXTREMITIES: no edema. PERIPHERAL PULSES: equal. NEUROLOGIC: No gross deficits, AAO X 3 Objective Labs and Meds Result diagrams: 01/25/22 06:41 01/25/22 06:41 Lab results: Laboratory Results - last 24 hr 01/24/22 01/24/22 01/24/22 17:13 17:13 17:13 WBC 9.5 RBC 2.97 L Hgb 9.4 L Hct 28.0 L MCV 94.3 MCH 31.6 MCHC 33.6 RDW 21.4 H Plt Count 247 MPV 12.6 H Immature Gran % (Auto) 1.9 H Neut % (Auto) 71.3 Lymph % (Auto) 14.8 L [place] % (Auto) 9.2 Eos % (Auto) 2.5 Baso % (Auto) 0.3 Lymph # (Auto) 1.4 [place] # (Auto) 0.9 Eos # (Auto) 0.2 Baso # (Auto) 0.0 Abs Immat Gran (auto) 0.18 H Absolute Neuts (auto) 6.8 Absolute Nucleated RBC 0.060 H Nucleated RBC % (auto) 0.6 H PT INR Sodium 135 Potassium 3.9 Chloride 102 Carbon Dioxide 17 L Anion Gap 20 BUN 16 D Creatinine 1.14 Estim Creat Clear Calc 34.9 Estimated GFR 46 Random Glucose 110 Lactic Acid Lactic Acid F/U @ 2Hr Calcium 8.2 L D Total Bilirubin 0.6 AST 10 ALT 14 Alkaline Phosphatase 57 Troponin I High Sens Total Protein 6.7 Albumin 3.8 25-OH Vitamin D Total TSH 27.74 H Urine Color Urine Appearance Urine pH Ur Specific [place] Urine Protein Urine Glucose (UA) Urine Ketones Urine Blood Urine Nitrite Ur Leukocyte Esterase Urine RBC Urine WBC Ur Squamous Epith Cells Urine Bacteria Hyaline Casts COVID-19 (JUNG) Negative COVID-19 Clin Com See Note 01/24/22 01/24/22 01/24/22 17:13 17:13 19:24 WBC RBC Hgb Hct MCV MCH MCHC RDW Plt Count MPV Immature Gran % (Auto) Neut % (Auto) Lymph % (Auto) [place] % (Auto) Eos % (Auto) Baso % (Auto) Lymph # (Auto) [place] # (Auto) Eos # (Auto) Baso # (Auto) Abs Immat Gran (auto) Absolute Neuts (auto) Absolute Nucleated RBC Nucleated RBC % (auto) PT 11.4 INR 1.0 Sodium Potassium Chloride Carbon Dioxide Anion Gap BUN Creatinine Estim Creat Clear Calc Estimated GFR Random Glucose Lactic Acid Lactic Acid F/U @ 2Hr Calcium Total Bilirubin AST ALT Alkaline Phosphatase Troponin I High Sens 7.6 Total Protein Albumin 25-OH Vitamin D Total TSH Urine Color Yellow Urine Appearance Turbid Urine pH 6.0 Ur Specific [place] <= 1.005 Urine Protein 30 (1+) H Urine Glucose (UA) Negative Urine Ketones Negative Urine Blood Moderate (2+) H Urine Nitrite Negative Ur Leukocyte Esterase Large (3+) H Urine RBC 0-2 Urine WBC >50 H Ur Squamous Epith Cells 0-2 Urine Bacteria 4+ Hyaline Casts 0-2 COVID-19 (JUNG) COVID-19 [employer] 01/24/22 01/25/22 01/25/22 21:27 00:01 06:41 WBC RBC Hgb Hct MCV MCH MCHC RDW Plt Count MPV Immature Gran % (Auto) Neut % (Auto) Lymph % (Auto) [place] % (Auto) Eos % (Auto) Baso % (Auto) Lymph # (Auto) [place] # (Auto) Eos # (Auto) Baso # (Auto) Abs Immat Gran (auto) Absolute Neuts (auto) Absolute Nucleated RBC Nucleated RBC % (auto) PT INR Sodium Potassium Chloride Carbon Dioxide Anion Gap BUN Creatinine Estim Creat Clear Calc Estimated GFR Random Glucose Lactic Acid 2.8 H* Lactic Acid F/U @ 2Hr 1.0 Calcium Total Bilirubin AST ALT Alkaline Phosphatase Troponin I High Sens Total Protein Albumin 25-OH Vitamin D Total 17.4 TSH 31.56 H Urine Color Urine Appearance Urine pH Ur Specific [place] Urine Protein Urine Glucose (UA) Urine Ketones Urine Blood Urine Nitrite Ur Leukocyte Esterase Urine RBC Urine WBC Ur Squamous Epith Cells Urine Bacteria Hyaline Casts COVID-19 (JUNG) COVID-19 [employer] 01/25/22 01/25/22 06:41 06:41 WBC 8.0 RBC 2.77 L Hgb 8.7 L Hct 26.3 L MCV 94.9 MCH 31.4 MCHC 33.1 RDW 21.3 H Plt Count 221 MPV 12.1 Immature Gran % (Auto) 1.9 H Neut % (Auto) 71.5 Lymph % (Auto) 12.1 L [place] % (Auto) 10.2 Eos % (Auto) 3.8 Baso % (Auto) 0.5 Lymph # (Auto) 1.0 L [place] # (Auto) 0.8 Eos # (Auto) 0.3 Baso # (Auto) 0.0 Abs Immat Gran (auto) 0.15 H Absolute Neuts (auto) 5.7 Absolute Nucleated RBC 0.050 H Nucleated RBC % (auto) 0.6 H PT INR Sodium 136 Potassium 4.4 Chloride 103 Carbon Dioxide 23 Anion Gap 14 BUN 16 Creatinine 1.13 Estim Creat Clear Calc 35.2 Estimated GFR 46 Random Glucose 101 Lactic Acid Lactic Acid F/U @ 2Hr Calcium 7.8 L Total Bilirubin AST ALT Alkaline Phosphatase Troponin I High Sens Total Protein Albumin 25-OH Vitamin D Total TSH Urine Color Urine Appearance Urine pH Ur Specific [place] Urine Protein Urine Glucose (UA) Urine Ketones Urine Blood Urine Nitrite Ur Leukocyte Esterase Urine RBC Urine WBC Ur Squamous Epith Cells Urine Bacteria Hyaline Casts COVID-19 (JUNG) COVID-19 Clin Com Imaging Radiologist's impression: Impressions Lumbar Spine X-Ray 01/24/22 17:55 IMPRESSION: Age indeterminant superior endplate compression fracture of the L3 vertebral body with approximately 30 percent loss of vertebral body height. Chronic superior endplate compression fractures at T12, L1, and L2. Lumbar Spine CT 01/24/22 20:03 IMPRESSION: 1. Chronic/old compression fractures L1 and L2, unchanged compared with 2014. 2. Additional compression fractures of T12 and L3, age-indeterminate but more likely chronic than subacute, albeit new compared with the 2014 exam. 3. Additional multilevel spondylosis of the lumbosacral spine. Cervical Spine CT 01/24/22 22:40 IMPRESSION: 1. No acute intracranial pathology. 2. No acute fracture or malalignment in the cervical spine. 3. Moderate multilevel degenerative spondylosis in cervical spine with multilevel neural foraminal encroachment. Head CT 01/24/22 22:40 IMPRESSION: 1. No acute intracranial pathology. 2. No acute fracture or malalignment in the cervical spine. 3. Moderate multilevel degenerative spondylosis in cervical spine with multilevel neural foraminal encroachment. Renal Ultrasound 01/25/22 09:40 IMPRESSION: Right renal cyst. No stone or hydronephrosis seen. Assessment and Plan (1) Atrial fibrillation, new onset: Status: Acute Plan Pleasant 81-year-old female with compression fractures and new onset atrial fibrillation. She is anemic and has been requiring blood transfusions. She has broken out of atrial fibrillation at this point. I think we need to understand the cause for anemia before we start any anticoagulation on her. Will review echocardiography. Thank you for allowing me to participate in the care of your patient. Please feel free to contact me if you have any questions. Procedures Date of Service Date of Service: 01/25/22
--- NOTE | 2022-01-25 17:00 | PC.NURSE ---
PT A&Ox3, denies pain at the moment. VSS. Visitor at bedside.
[2022-01-25] MEDS: Cyclobenzaprine HCl 10 MG TABLET PO (20:04)
[2022-01-25] MEDS: QUEtiapine Fumarate 300 MG TABLET PO (20:06)
[2022-01-25] MEDS: Enoxaparin Sodium 40 MG/0.4 ML SYRINGE SUBCUT (20:08)
[2022-01-25] MEDS: cefTRIAXone sodium 1 GM in 0.9 % Sodium Chloride 50 ML IV (20:17)
[2022-01-25] MEDS: Acetaminophen 325 MG TABLET 650 MG PO (22:09)
[2022-01-26 05:24] VITALS: RESP 18
[2022-01-26] MEDS: HYDROmorphone HCl 1 MG/ML SYRINGE 0.5 MG IVPUSH ×4 (05:24→22:42)
[2022-01-26] MEDS: Levothyroxine Sodium 112 MCG TABLET PO (05:24)
[2022-01-26 07:21] LABS: Hematocrit 23.7 % (37.0-47.0); Hemoglobin 7.9 g/dl (12.0-16.0); Mean Corpuscular HGB Conc 33.3 g/dl (31.0-35.0); Mean Corpuscular Hemoglobin 31.9 pg (27.0-33.0); Mean Corpuscular Volume 95.6 fL (80.0-98.0); Mean Platelet Volume 13.2 fL (9.4-12.3); Platelet Count 192 X10*3/uL (160-400); Red Blood Count 2.48 X10*6/uL (4.20-5.50); Red Cell Distribution Width 21.3 % (11.0-16.0); White Blood Count 6.2 X10*3/uL (4.8-10.8)
[2022-01-26 07:23] LABS: NRBC Pct Auto 1.1 /100WBC (0.0-0.2)
[2022-01-26 07:37] VITALS: BP 97/59; PULSE 84; RESP 20; TEMP 36.7; O2SAT 95
[2022-01-26 07:41] LABS: Anion Gap 14 (12-20); Blood Urea Nitrogen 17 mg/dL (9-16); Carbon Dioxide 22 mmol/L (22-29); Chloride 102 mmol/L (96-108); Creatinine Clr Calc Pharmacy 31.5; Estimated Glomerular Filt Rate 44; Glucose Fasting 114 mg/dL (60-99); Potassium 4.4 mmol/L (3.3-5.1); Sodium 134 mmol/L (135-145)
[2022-01-26] MEDS: FLUoxetine HCl 20 MG CAPSULE 40 MG PO (11:25)
[2022-01-26] MEDS: dilTIAZem HCL 30 MG TABLET PO ×4 (11:25→20:45)
[2022-01-26] MEDS: 0.9 % Sodium Chloride Flush 3 ML SYRINGE IVFLUSH ×2 (11:31→20:46)
[2022-01-26] MEDS: 0.9 % Sodium Chloride 1,000 ML 100 ML IVCONT ×2 (11:32→22:39)
--- NOTE | 2022-01-26 13:23 | HO.PM.IMPN ---
Subjective Subjective Date of Service: 01/26/22 Interval History: cc: fall interval history:back pain Cardiovascular Cardiovascular: Reports no additional cardiovascular complaints Respiratory Respiratory: Reports no additional respiratory complaints Physical Exam Vital Signs: Vital Signs: Last Vital Signs Temp 98.0 F 01/26/22 07:37 Pulse 84 01/26/22 07:37 Resp 20 01/26/22 07:37 BP 97/59 L 01/26/22 07:37 Pulse Ox 95 01/26/22 07:37 O2 Del Method 01/26/22 07:37 BMI result Body Mass Index 24.7 GENERAL APPEARANCE: in no acute distress, pleasant. NECK: no carotid bruit, no jugular venous distention. SKIN: no suspicious lesions, warm and dry. HEART: no murmurs, regular rate and rhythm. LUNGS: clear to auscultation bilaterally. ABDOMEN: soft, nontender. EXTREMITIES: no edema. PERIPHERAL PULSES: equal. NEUROLOGIC: No gross deficits, AAO X 3 Objective Data Active Medications Acetaminophen (Acetaminophen 325 Mg Tablet) 650 mg PO Q6H PRN PRN Reason: Pain, Mild (Pain Scale 1-3) Last Admin: 01/25/22 22:09 Dose: 650 mg Documented By: RAMO Cyclobenzaprine HCl (Cyclobenzaprine Hcl 10 Mg Tablet) 10 mg PO BEDTIME [facility] Last Admin: 01/25/22 20:04 Dose: 10 mg Documented By: CHYNA Diltiazem HCl (Diltiazem Hcl 30 Mg Tablet) 30 mg PO QID [facility]; Protocol Last Admin: 01/26/22 11:25 Dose: 30 mg Documented By: ATIYA Enoxaparin Sodium (Enoxaparin Sodium 40 Mg/0.4 Ml Syringe) 40 mg SUBCUT Q24H [facility] Last Admin: 01/25/22 20:08 Dose: 40 mg Documented By: CHYNA Fluoxetine HCl (Fluoxetine Hcl 20 Mg Capsule) 40 mg PO DAILY [facility] Last Admin: 01/26/22 11:25 Dose: 40 mg Documented By: ATIYA Hydromorphone HCl (Hydromorphone Hcl 1 Mg/Ml Syringe) 0.5 mg IVPUSH Q4H PRN; Protocol PRN Reason: Pain, Severe (Pain Scale 7-10) Last Admin: 01/26/22 11:37 Dose: 0.5 mg Documented By: ATIYA Ceftriaxone Sodium 1 gm/ (Sodium Chloride) 50 mls @ 100 mls/hr IV Q24H [facility] Last Infusion: 01/25/22 20:56 Dose: 0 mls/hr Documented By: CHYNA Sodium Chloride (Ns) 1,000 mls @ 100 mls/hr IVCONT .Q10H [facility] Last Admin: 01/26/22 11:32 Dose: 100 mls/hr Documented By: ATIYA Levothyroxine Sodium (Levothyroxine Sodium 112 Mcg Tablet) 112 mcg PO 0600 [facility] Last Admin: 01/26/22 05:24 Dose: 112 mcg Documented By: CHRISROAtiya Quetiapine Fumarate (Quetiapine Fumarate 300 Mg Tablet) 300 mg PO BEDTIME [facility] Last Admin: 01/25/22 20:06 Dose: 300 mg Documented By: CHYNA Senna (Sennosides 8.6 Mg Tablet) 17.2 mg PO BEDTIME PRN PRN Reason: Constipation Sodium Chloride (0.9 % Sodium Chloride Flush 3 Ml Syringe) 3 ml IVFLUSH QSHIFT [facility] Last Admin: 01/26/22 11:31 Dose: 3 ml Documented By: ATIYA Labs CBC & Chem 7: 01/26/22 06:33 01/26/22 06:33 Labs: Laboratory Results - last 24 hr 01/26/22 01/26/22 06:33 06:33 MCV 95.6 MCH 31.9 MCHC 33.3 RDW 21.3 H Plt Count 192 MPV 13.2 H Absolute Nucleated RBC 0.070 H Nucleated RBC % (auto) 1.1 H Anion Gap 14 Estim Creat Clear Calc 31.5 Estimated GFR 44 Fasting Glucose 114 H Calcium 8.0 L Microbiology Microbiology Results: Microbiology 01/24/22 Unknown Urine Culture - Preliminary Urine clean catch - Urine alvares top Gram negative makayla 01/24/22 21:27 Blood Culture - Preliminary Blood - Venous No growth after 24 hours. 01/24/22 21:27 Blood Culture - Preliminary Blood - Venous No growth after 24 hours. Assessment and Plan (1) Atrial fibrillation, new onset: Status: Acute Plan 81-year-old female with past medical history of hypothyroid, chronic alcohol dependence, hypertension, anxiety/depression, status post pacemaker, chronic back pain, osteoporosis, anemia of chronic disease presented with back pain, found to have new onset atrial fibrillation and urinary tract infection Mechanical fall with T12, L3 age indeterminate fractures Pain control PT/OT orthostatic hypotension ivf, monitor, hold roddy-i Urinary tract infection Ceftriaxone, follow-up cultures - urine gnr Atrial fibrillation Appears to be new onset, now in normal sinus rhythm cardiology appreciated, will hold off on ac until anemia cause determined Continue Cardizem Anemia of chronic disease Stable, check b12, folate, iron sats Hypothyroid Elevated TSH, increased Synthroid to 112 mcg from 88 Follow-up TSH in 1 month Hypertension low bp, hold roddy i Chronic back pain Flexeril Mood disorder Prozac, Seroquel DVT prophylaxis with Lovenox Full code reason for continued hospitalization: pain control, awaiting cultures Quality Stroke Does the patient have a stroke diagnosis?: No VTE Prior VTE?: No VTE Risk Level:: Medical - moderate - high VTE Device Contraindication: Treatment Not Indicated VTE Drug Contraindication: N/A - Med Ordered
[2022-01-26 13:46] LABS: Iron 92 mcg/dL (30-160); Percent Iron Saturation 42 % (15-50); Total Iron Binding Capacity 219 mcg/dL (228-428); Unsaturated Iron Binding 127 ug/dL
[2022-01-26 14:06] LABS: Ferritin 837 ng/mL (10-250)
[2022-01-26 14:40] LABS: Folate 6.7 ng/mL (> or = 4.0); Vitamin B12 366 pg/mL (200-900)
[2022-01-26 16:00] VITALS: BP 110/61; PULSE 100; RESP 18; TEMP 37.1; O2SAT 96
--- NOTE | 2022-01-26 16:34 | MHC.CM.PN ---
PT recommends STR. Patient declines STR. A referral was sent to [facility] for home PT. Family transport planned.
[2022-01-26 20:20] VITALS: BP 111/60; PULSE 78; RESP 18; TEMP 37; O2SAT 98
[2022-01-26] MEDS: QUEtiapine Fumarate 300 MG TABLET PO (20:45)
[2022-01-26] MEDS: Cyclobenzaprine HCl 10 MG TABLET PO (20:45)
[2022-01-26] MEDS: Enoxaparin Sodium 40 MG/0.4 ML SYRINGE SUBCUT (20:46)
[2022-01-26] MEDS: cefTRIAXone sodium 1 GM in 0.9 % Sodium Chloride 50 ML IV (20:52)
[2022-01-26] MEDS: Calcium Carbonate 750 MG TAB.CHEW PO (20:54)
[2022-01-27] VITALS (7 sets, daily range): BP systolic 88–119; BP diastolic 60–78; PULSE 77–96; RESP 16–18; TEMP 35.6–36.9; O2SAT 95–98
[2022-01-27] MEDS: Lactated Ringers 1,000 ML 999 ML IV (01:16)
[2022-01-27 01:45] LABS: Lactic Acid 0.8 mmol/L (0.5-2.0)
[2022-01-27] MEDS: HYDROmorphone HCl 1 MG/ML SYRINGE 0.5 MG IVPUSH ×2 (02:27→16:45)
[2022-01-27] MEDS: Levothyroxine Sodium 112 MCG TABLET PO (05:10)
[2022-01-27 06:41] LABS: Hematocrit 24.1 % (37.0-47.0); Hemoglobin 7.9 g/dl (12.0-16.0); Mean Corpuscular HGB Conc 32.8 g/dl (31.0-35.0); Mean Corpuscular Hemoglobin 31.7 pg (27.0-33.0); Mean Corpuscular Volume 96.8 fL (80.0-98.0); Mean Platelet Volume 12.2 fL (9.4-12.3); NRBC Pct Auto 0.5 /100WBC (0.0-0.2); Platelet Count 192 X10*3/uL (160-400); Red Blood Count 2.49 X10*6/uL (4.20-5.50); Red Cell Distribution Width 21.5 % (11.0-16.0); White Blood Count 6.4 X10*3/uL (4.8-10.8)
[2022-01-27 07:29] LABS: Anion Gap 16 (12-20); Blood Urea Nitrogen 11 mg/dL (9-16); Calcium 8.4 mg/dL (8.4-10.2); Carbon Dioxide 21 mmol/L (22-29); Chloride 107 mmol/L (96-108); Estimated Glomerular Filt Rate 58; Glucose Fasting 92 mg/dL (60-99); Potassium 4.7 mmol/L (3.3-5.1); Sodium 139 mmol/L (135-145)
[2022-01-27] MEDS: dilTIAZem HCL 30 MG TABLET PO ×4 (09:56→21:03)
[2022-01-27] MEDS: FLUoxetine HCl 20 MG CAPSULE 40 MG PO (09:56)
[2022-01-27] MEDS: 0.9 % Sodium Chloride Flush 3 ML SYRINGE IVFLUSH ×2 (09:57→21:04)
--- NOTE | 2022-01-27 10:54 | P.PNIM_ITS ---
Subjective Subjective Date of Service: 01/27/22 Interval History: cc: fall interval history:back pain Cardiovascular Cardiovascular: Reports no additional cardiovascular complaints Respiratory Respiratory: Reports no additional respiratory complaints Physical Exam Vital Signs: Vital Signs: Last Vital Signs Temp 98.5 F 01/27/22 07:13 Pulse 85 01/27/22 07:13 Resp 18 01/27/22 07:13 BP 118/60 01/27/22 07:13 Pulse Ox 95 01/27/22 07:13 O2 Del Method 01/27/22 07:13 BMI result Body Mass Index 24.7 GENERAL APPEARANCE: in no acute distress, pleasant. NECK: no carotid bruit, no jugular venous distention. SKIN: no suspicious lesions, warm and dry. HEART: no murmurs, regular rate and rhythm. LUNGS: clear to auscultation bilaterally. ABDOMEN: soft, nontender. EXTREMITIES: no edema. PERIPHERAL PULSES: equal. NEUROLOGIC: No gross deficits, AAO X 3 Objective Data Active Medications Acetaminophen (Acetaminophen 325 Mg Tablet) 650 mg PO Q6H PRN PRN Reason: Pain, Mild (Pain Scale 1-3) Last Admin: 01/25/22 22:09 Dose: 650 mg Documented By: RAMO Calcium Carbonate (Calcium Carbonate 750 Mg Tab.Chew) 750 mg PO Q4H PRN PRN Reason: heartburn Last Admin: 01/26/22 20:54 Dose: 750 mg Documented By: NANCY Cyclobenzaprine HCl (Cyclobenzaprine Hcl 10 Mg Tablet) 10 mg PO BEDTIME [facility] Last Admin: 01/26/22 20:45 Dose: 10 mg Documented By: NANCY Diltiazem HCl (Diltiazem Hcl 30 Mg Tablet) 30 mg PO QID [facility]; Protocol Last Admin: 01/27/22 09:56 Dose: 30 mg Documented By: ALAN Enoxaparin Sodium (Enoxaparin Sodium 40 Mg/0.4 Ml Syringe) 40 mg SUBCUT Q24H [facility] Last Admin: 01/26/22 20:46 Dose: 40 mg Documented By: NANCY Fluoxetine HCl (Fluoxetine Hcl 20 Mg Capsule) 40 mg PO DAILY [facility] Last Admin: 01/27/22 09:56 Dose: 40 mg Documented By: ALAN Hydromorphone HCl (Hydromorphone Hcl 1 Mg/Ml Syringe) 0.5 mg IVPUSH Q4H PRN; Protocol PRN Reason: Pain, Severe (Pain Scale 7-10) Last Admin: 01/27/22 02:27 Dose: 0.5 mg Documented By: NANCY Ceftriaxone Sodium 1 gm/ (Sodium Chloride) 50 mls @ 100 mls/hr IV Q24H [facility] Last Infusion: 01/26/22 23:52 Dose: 100 mls/hr Documented By: NANCY Sodium Chloride (Ns) 1,000 mls @ 100 mls/hr IVCONT .Q10H [facility] Last Admin: 01/26/22 22:39 Dose: 100 mls/hr Documented By: NANCY Levothyroxine Sodium (Levothyroxine Sodium 112 Mcg Tablet) 112 mcg PO 0600 [facility] Last Admin: 01/27/22 05:10 Dose: 112 mcg Documented By: NANCY Quetiapine Fumarate (Quetiapine Fumarate 300 Mg Tablet) 300 mg PO BEDTIME [facility] Last Admin: 01/26/22 20:45 Dose: 300 mg Documented By: NANCY Senna (Sennosides 8.6 Mg Tablet) 17.2 mg PO BEDTIME PRN PRN Reason: Constipation Sodium Chloride (0.9 % Sodium Chloride Flush 3 Ml Syringe) 3 ml IVFLUSH QSHIFT [facility] Last Admin: 01/27/22 09:57 Dose: 3 ml Documented By: ALAN Labs CBC & Chem 7: 01/27/22 06:09 01/27/22 06:09 Labs: Laboratory Results - last 24 hr 01/26/22 01/26/22 01/27/22 06:33 06:33 01:27 MCV MCH MCHC RDW Plt Count MPV Absolute Nucleated RBC Nucleated RBC % (auto) Anion Gap Estim Creat Clear Calc Estimated GFR Fasting Glucose Lactic Acid 0.8 Calcium Iron 92 TIBC 219 L % Saturation 42 Unsat Iron Binding 127 Ferritin 837 H Vitamin B12 366 Folate 6.7 01/27/22 01/27/22 06:09 06:09 MCV 96.8 MCH 31.7 MCHC 32.8 RDW 21.5 H Plt Count 192 MPV 12.2 Absolute Nucleated RBC 0.030 H Nucleated RBC % (auto) 0.5 H Anion Gap 16 Estim Creat Clear Calc 40.0 Estimated GFR 58 Fasting Glucose 92 Lactic Acid Calcium 8.4 Iron TIBC % Saturation Unsat Iron Binding Ferritin Vitamin B12 Folate Microbiology Microbiology Results: Microbiology 01/24/22 Unknown Urine Culture - Final Urine clean catch - Urine alvares top Escherichia coli 01/24/22 21:27 Blood Culture - Preliminary Blood - Venous No growth after 48 hours. 01/24/22 21:27 Blood Culture - Preliminary Blood - Venous No growth after 48 hours. Assessment and Plan (1) Atrial fibrillation, new onset: Status: Acute Plan 81-year-old female with past medical history of hypothyroid, chronic alcohol dependence, hypertension, anxiety/depression, status post pacemaker, chronic back pain, osteoporosis, anemia of chronic disease presented with back pain, found to have new onset atrial fibrillation and urinary tract infection Mechanical fall with T12, L3 age indeterminate fractures Pain control PT/OT orthostatic hypotension ivf, monitor, holding roddy-i Urinary tract infection Ceftriaxone day 3, urine grew pansensitive ecoli Atrial fibrillation Appears to be new onset, now in normal sinus rhythm cardiology appreciated, will hold off on ac until anemia cause determined Continue Cardizem Anemia of chronic disease Stable, b12 folate normal, iron consistent with inflammatory anemia Hypothyroid Elevated TSH, increased Synthroid to 112 mcg from 88 Follow-up TSH in 1 month Hypertension low bp, hold roddy i Chronic back pain Flexeril Mood disorder Prozac, Seroquel DVT prophylaxis with Lovenox Full code reason for continued hospitalization: pain control, orthostatic Quality Stroke Does the patient have a stroke diagnosis?: No VTE Prior VTE?: No VTE Risk Level:: Medical - moderate - high VTE Device Contraindication: Treatment Not Indicated VTE Drug Contraindication: N/A - Med Ordered
[2022-01-27] MEDS: 0.9 % Sodium Chloride 1,000 ML 100 ML IVCONT ×2 (15:10→21:03)
[2022-01-27] MEDS: Cyclobenzaprine HCl 10 MG TABLET PO (21:03)
[2022-01-27] MEDS: Enoxaparin Sodium 40 MG/0.4 ML SYRINGE SUBCUT (21:03)
[2022-01-27] MEDS: QUEtiapine Fumarate 300 MG TABLET PO (21:03)
[2022-01-27] MEDS: cefTRIAXone sodium 1 GM in 0.9 % Sodium Chloride 50 ML IV (21:03)
[2022-01-28] VITALS (8 sets, daily range): BP systolic 95–146; BP diastolic 50–86; PULSE 78–89; RESP 16–20; TEMP 36.1–36.9; O2SAT 93–98
--- NOTE | 2022-01-28 | ECG_ITS ---
Test Reason : CP Blood Pressure : / mmHG Vent. Rate : 091 BPM Atrial Rate : 089 BPM P-R Int : 000 ms QRS Dur : 132 ms QT Int : 454 ms P-R-T Axes : 000 098 054 degrees QTc Int : 558 ms Poor data quality, interpretation may be adversely affected Atrial fibrillation Right bundle branch block T wave abnormality, consider lateral ischemia Abnormal ECG When compared with ECG of 24-JAN-2022 16:47, No significant change was found Referred By: Patrice Mercer Electronically Signed By:UMAIR ANG
[2022-01-28 02:08] LABS: Anion Gap 12 (12-20); Blood Urea Nitrogen 11 mg/dL (9-16); Calcium 8.1 mg/dL (8.4-10.2); Carbon Dioxide 24 mmol/L (22-29); Chloride 105 mmol/L (96-108); Creatinine Clr Calc Pharmacy 43.8; Estimated Glomerular Filt Rate > 60; Glucose Random 100 mg/dL (60-115); Magnesium 1.5 mg/dL (1.6-2.6); Sodium 137 mmol/L (135-145)
[2022-01-28] MEDS: Magnesium Sulfate/H2O 2 GM/50 ML PIGGYBACK IV (05:14)
[2022-01-28] MEDS: 0.9 % Sodium Chloride 1,000 ML 100 ML IVCONT (05:14)
[2022-01-28] MEDS: Levothyroxine Sodium 112 MCG TABLET PO (05:14)
[2022-01-28 07:02] LABS: Hematocrit 23.2 % (37.0-47.0); Hemoglobin 7.6 g/dl (12.0-16.0); Mean Corpuscular HGB Conc 32.8 g/dl (31.0-35.0); Mean Corpuscular Hemoglobin 31.7 pg (27.0-33.0); Mean Corpuscular Volume 96.7 fL (80.0-98.0); Mean Platelet Volume 12.9 fL (9.4-12.3); NRBC Pct Auto 0.3 /100WBC (0.0-0.2); Platelet Count 210 X10*3/uL (160-400); Red Cell Distribution Width 21.5 % (11.0-16.0); White Blood Count 5.9 X10*3/uL (4.8-10.8)
[2022-01-28 07:21] LABS: Anion Gap 15 (12-20); Blood Urea Nitrogen 10 mg/dL (9-16); Calcium 8.2 mg/dL (8.4-10.2); Carbon Dioxide 20 mmol/L (22-29); Chloride 107 mmol/L (96-108); Estimated Glomerular Filt Rate > 60; Glucose Fasting 83 mg/dL (60-99); Potassium 4.1 mmol/L (3.3-5.1); Sodium 138 mmol/L (135-145)
[2022-01-28] MEDS: FLUoxetine HCl 20 MG CAPSULE 40 MG PO (08:45)
[2022-01-28] MEDS: dilTIAZem HCL CD 120 MG CAP.ER.DEG PO (08:45)
--- NOTE | 2022-01-28 09:23 | HO.PM.IMPN ---
Subjective Subjective Date of Service: 01/28/22 Interval History: cc: fall interval history:back pain Cardiovascular Cardiovascular: Reports no additional cardiovascular complaints Respiratory Respiratory: Reports no additional respiratory complaints Physical Exam Vital Signs: Vital Signs: Last Vital Signs Temp 97.0 F 01/28/22 07:50 Pulse 85 01/28/22 07:50 Resp 16 01/28/22 07:50 BP 120/70 01/28/22 07:50 Pulse Ox 93 01/28/22 07:50 O2 Del Method 01/28/22 07:50 BMI result Body Mass Index 24.7 GENERAL APPEARANCE: in no acute distress, pleasant. NECK: no carotid bruit, no jugular venous distention. SKIN: no suspicious lesions, warm and dry. HEART: no murmurs, regular rate and rhythm. LUNGS: clear to auscultation bilaterally. ABDOMEN: soft, nontender. EXTREMITIES: no edema. PERIPHERAL PULSES: equal. NEUROLOGIC: No gross deficits, AAO X 3 Objective Data Active Medications Acetaminophen (Acetaminophen 325 Mg Tablet) 650 mg PO Q6H PRN PRN Reason: Pain, Mild (Pain Scale 1-3) Last Admin: 01/25/22 22:09 Dose: 650 mg Documented By: RAMO Calcium Carbonate (Calcium Carbonate 750 Mg Tab.Chew) 750 mg PO Q4H PRN PRN Reason: heartburn Last Admin: 01/26/22 20:54 Dose: 750 mg Documented By: NANCY Cyclobenzaprine HCl (Cyclobenzaprine Hcl 10 Mg Tablet) 10 mg PO BEDTIME [facility] Last Admin: 01/27/22 21:03 Dose: 10 mg Documented By: LORE Diltiazem HCl (Diltiazem Hcl Cd 120 Mg Cap.Er.Deg) 120 mg PO DAILY [facility]; Protocol Last Admin: 01/28/22 08:45 Dose: 120 mg Documented By: ALAN Enoxaparin Sodium (Enoxaparin Sodium 40 Mg/0.4 Ml Syringe) 40 mg SUBCUT Q24H [facility] Last Admin: 01/27/22 21:03 Dose: 40 mg Documented By: LORE Fluoxetine HCl (Fluoxetine Hcl 20 Mg Capsule) 40 mg PO DAILY [facility] Last Admin: 01/28/22 08:45 Dose: 40 mg Documented By: ALAN Hydromorphone HCl (Hydromorphone Hcl 1 Mg/Ml Syringe) 0.5 mg IVPUSH Q4H PRN; Protocol PRN Reason: Pain, Severe (Pain Scale 7-10) Last Admin: 01/27/22 16:45 Dose: 0.5 mg Documented By: ALAN Ceftriaxone Sodium 1 gm/ (Sodium Chloride) 50 mls @ 100 mls/hr IV Q24H [facility] Last Infusion: 01/27/22 21:33 Dose: 0 mls/hr Documented By: LORE Sodium Chloride (Ns) 1,000 mls @ 100 mls/hr IVCONT .Q10H [facility] Last Admin: 01/28/22 05:14 Dose: 100 mls/hr Documented By: LORE Levothyroxine Sodium (Levothyroxine Sodium 112 Mcg Tablet) 112 mcg PO 0600 [facility] Last Admin: 01/28/22 05:14 Dose: 112 mcg Documented By: LORE Quetiapine Fumarate (Quetiapine Fumarate 300 Mg Tablet) 300 mg PO BEDTIME [facility] Last Admin: 01/27/22 21:03 Dose: 300 mg Documented By: LORE Senna (Sennosides 8.6 Mg Tablet) 17.2 mg PO BEDTIME PRN PRN Reason: Constipation Sodium Chloride (0.9 % Sodium Chloride Flush 3 Ml Syringe) 3 ml IVFLUSH QSHIFT [facility] Last Admin: 01/28/22 08:44 Dose: Not Given Documented By: ALAN Non-Admin Reason: IV Running Labs CBC & Chem 7: 01/28/22 06:13 01/28/22 06:13 Labs: Laboratory Results - last 24 hr 01/28/22 01/28/22 01/28/22 01:45 06:13 06:13 MCV 96.7 MCH 31.7 MCHC 32.8 RDW 21.5 H Plt Count 210 MPV 12.9 H Absolute Nucleated RBC 0.020 H Nucleated RBC % (auto) 0.3 H Anion Gap 12 15 Estim Creat Clear Calc 43.8 46.0 Estimated GFR > 60 > 60 Random Glucose 100 Fasting Glucose 83 Calcium 8.1 L 8.2 L Magnesium 1.5 L Microbiology Microbiology Results: Microbiology 01/24/22 Unknown Urine Culture - Final Urine clean catch - Urine alvares top Escherichia coli Assessment and Plan (1) Atrial fibrillation, new onset: Status: Acute Plan 81-year-old female with past medical history of hypothyroid, chronic alcohol dependence, hypertension, anxiety/depression, status post pacemaker, chronic back pain, osteoporosis, anemia of chronic disease presented with back pain, found to have new onset atrial fibrillation and urinary tract infection Mechanical fall with T12, L3 age indeterminate fractures Pain control PT/OT orthostatic hypotension ivf, monitor, holding roddy-i Urinary tract infection Ceftriaxone day 4, urine grew pansensitive ecoli Atrial fibrillation Appears to be new onset, now in normal sinus rhythm cardiology appreciated, will hold off on ac until anemia cause determined Continue Cardizem Anemia of chronic disease Stable, b12 folate normal, iron consistent with inflammatory anemia will transfuse 1 unit, follow up hgb Hypothyroid Elevated TSH, increased Synthroid to 112 mcg from 88 Follow-up TSH in 1 month Hypertension low bp, hold roddy i Chronic back pain Flexeril Mood disorder Prozac, Seroquel DVT prophylaxis with Lovenox Full code reason for continued hospitalization: weakness, blood transfusion Quality Stroke Does the patient have a stroke diagnosis?: No VTE Prior VTE?: No VTE Risk Level:: Medical - moderate - high VTE Device Contraindication: Treatment Not Indicated VTE Drug Contraindication: N/A - Med Ordered
[2022-01-28] MEDS: oxyCODONE HCl Immed Release 5 MG TABLET PO (15:33)
[2022-01-28] MEDS: HYDROmorphone HCl 1 MG/ML SYRINGE 0.5 MG IVPUSH (17:15)
[2022-01-28] MEDS: cefTRIAXone sodium 1 GM in 0.9 % Sodium Chloride 50 ML IV (20:30)
[2022-01-28] MEDS: Cyclobenzaprine HCl 10 MG TABLET PO (20:32)
[2022-01-28] MEDS: Enoxaparin Sodium 40 MG/0.4 ML SYRINGE SUBCUT (20:33)
[2022-01-28] MEDS: QUEtiapine Fumarate 300 MG TABLET PO (21:17)
[2022-01-29] VITALS: BP 143/84; PULSE 86; RESP 18; TEMP 37.1; O2SAT 94
[2022-01-29 00:15] LABS: Anion Gap 15 (12-20); Blood Urea Nitrogen 12 mg/dL (9-16); Carbon Dioxide 22 mmol/L (22-29); Chloride 103 mmol/L (96-108); Creatinine Clr Calc Pharmacy 45.4; Estimated Glomerular Filt Rate > 60; Glucose Random 101 mg/dL (60-115); Magnesium 1.7 mg/dL (1.6-2.6); Potassium 3.9 mmol/L (3.3-5.1); Sodium 136 mmol/L (135-145)
[2022-01-29] MEDS: Levothyroxine Sodium 112 MCG TABLET PO (04:24)
[2022-01-29 07:01] LABS: Hematocrit 25.6 % (37.0-47.0); Hemoglobin 8.6 g/dl (12.0-16.0); Mean Corpuscular HGB Conc 33.6 g/dl (31.0-35.0); Mean Corpuscular Hemoglobin 31.9 pg (27.0-33.0); Mean Corpuscular Volume 94.8 fL (80.0-98.0); Mean Platelet Volume 12.4 fL (9.4-12.3); Platelet Count 209 X10*3/uL (160-400); Red Cell Distribution Width 20.5 % (11.0-16.0); White Blood Count 7.4 X10*3/uL (4.8-10.8)
[2022-01-29 07:28] LABS: Anion Gap 11 (12-20); Blood Urea Nitrogen 12 mg/dL (9-16); Calcium 8.4 mg/dL (8.4-10.2); Carbon Dioxide 24 mmol/L (22-29); Chloride 107 mmol/L (96-108); Creatinine Clr Calc Pharmacy 47.2; Estimated Glomerular Filt Rate > 60; Glucose Fasting 85 mg/dL (60-99); Potassium 4.2 mmol/L (3.3-5.1); Sodium 138 mmol/L (135-145)
[2022-01-29 08:00] VITALS: BP 126/70; PULSE 99; RESP 20; TEMP 37.2; O2SAT 96
[2022-01-29] MEDS: 0.9 % Sodium Chloride Flush 3 ML SYRINGE IVFLUSH ×3 (09:10→20:59)
[2022-01-29] MEDS: dilTIAZem HCL CD 120 MG CAP.ER.DEG PO (09:10)
[2022-01-29] MEDS: FLUoxetine HCl 20 MG CAPSULE 40 MG PO (09:10)
--- NOTE | 2022-01-29 11:00 | P.PNIM_ITS ---
Subjective Subjective Date of Service: 01/29/22 Interval History: cc: fall interval history:back pain Cardiovascular Cardiovascular: Reports no additional cardiovascular complaints Respiratory Respiratory: Reports no additional respiratory complaints Physical Exam Vital Signs: Vital Signs: Last Vital Signs Temp 98.9 F 01/29/22 08:00 Pulse 99 01/29/22 08:00 Resp 20 01/29/22 08:00 BP 126/70 01/29/22 08:00 Pulse Ox 96 01/29/22 08:00 O2 Del Method 01/29/22 08:00 BMI result Body Mass Index 24.7 GENERAL APPEARANCE: in no acute distress, pleasant. NECK: no carotid bruit, no jugular venous distention. SKIN: no suspicious lesions, warm and dry. HEART: no murmurs, regular rate and rhythm. LUNGS: clear to auscultation bilaterally. ABDOMEN: soft, nontender. EXTREMITIES: no edema. PERIPHERAL PULSES: equal. NEUROLOGIC: No gross deficits, AAO X 3 Objective Data Active Medications Acetaminophen (Acetaminophen 325 Mg Tablet) 650 mg PO Q6H PRN PRN Reason: Pain, Mild (Pain Scale 1-3) Last Admin: 01/25/22 22:09 Dose: 650 mg Documented By: RAMO Apixaban (Apixaban 5 Mg Tablet) 5 mg PO BID [facility] Calcium Carbonate (Calcium Carbonate 750 Mg Tab.Chew) 750 mg PO Q4H PRN PRN Reason: heartburn Last Admin: 01/26/22 20:54 Dose: 750 mg Documented By: NANCY Cyclobenzaprine HCl (Cyclobenzaprine Hcl 10 Mg Tablet) 10 mg PO BEDTIME [facility] Last Admin: 01/28/22 20:32 Dose: 10 mg Documented By: CHUCK Diltiazem HCl (Diltiazem Hcl Cd 120 Mg Cap.Er.Deg) 120 mg PO DAILY [facility]; Protocol Last Admin: 01/29/22 09:10 Dose: 120 mg Documented By: ALAN Fluoxetine HCl (Fluoxetine Hcl 20 Mg Capsule) 40 mg PO DAILY [facility] Last Admin: 01/29/22 09:10 Dose: 40 mg Documented By: ALAN Hydromorphone HCl (Hydromorphone Hcl 1 Mg/Ml Syringe) 0.5 mg IVPUSH Q4H PRN; Protocol PRN Reason: Pain, Severe (Pain Scale 7-10) Last Admin: 01/28/22 17:15 Dose: 0.5 mg Documented By: ALAN Ceftriaxone Sodium 1 gm/ (Sodium Chloride) 50 mls @ 100 mls/hr IV Q24H [facility] Last Infusion: 01/28/22 21:18 Dose: 0 mls/hr Documented By: CHUCK Levothyroxine Sodium (Levothyroxine Sodium 112 Mcg Tablet) 112 mcg PO 0600 [facility] Last Admin: 01/29/22 04:24 Dose: 112 mcg Documented By: CHUCK Oxycodone HCl (Oxycodone Hcl Immed Release 5 Mg Tablet) 5 mg PO Q6H PRN PRN Reason: moderate pain Last Admin: 01/28/22 15:33 Dose: 5 mg Documented By: ALAN Quetiapine Fumarate (Quetiapine Fumarate 300 Mg Tablet) 300 mg PO BEDTIME [facility] Last Admin: 01/28/22 21:17 Dose: 300 mg Documented By: CHUCK Senna (Sennosides 8.6 Mg Tablet) 17.2 mg PO BEDTIME PRN PRN Reason: Constipation Sodium Chloride (0.9 % Sodium Chloride Flush 3 Ml Syringe) 3 ml IVFLUSH QSHIFT [facility] Last Admin: 01/29/22 09:10 Dose: 3 ml Documented By: ALAN Labs CBC & Chem 7: 01/29/22 06:07 01/29/22 06:07 Labs: Laboratory Results - last 24 hr 01/28/22 01/28/22 01/29/22 09:35 23:43 06:07 MCV 94.8 MCH 31.9 MCHC 33.6 RDW 20.5 H Plt Count 209 MPV 12.4 H Absolute Nucleated RBC 0.070 H Nucleated RBC % (auto) 1.0 H Anion Gap 15 Estim Creat Clear Calc 45.4 Estimated GFR > 60 Random Glucose 101 Fasting Glucose Calcium 8.0 L Magnesium 1.7 Blood Type B Positive Antibody Screen NEGATIVE Crossmatch ([facility]) See Detail 01/29/22 06:07 MCV MCH MCHC RDW Plt Count MPV Absolute Nucleated RBC Nucleated RBC % (auto) Anion Gap 11 L Estim Creat Clear Calc 47.2 Estimated GFR > 60 Random Glucose Fasting Glucose 85 Calcium 8.4 Magnesium Blood Type Antibody Screen Crossmatch ([facility]) Assessment and Plan (1) Atrial fibrillation, new onset: Status: Acute Plan 81-year-old female with past medical history of hypothyroid, chronic alcohol dependence, hypertension, anxiety/depression, status post pacemaker, chronic back pain, osteoporosis, anemia of chronic disease presented with back pain, found to have new onset atrial fibrillation and urinary tract infection Mechanical fall with T12, L3 age indeterminate fractures Pain control PT/OT orthostatic hypotension ivf, monitor, holding roddy-i Urinary tract infection Ceftriaxone day 5, urine grew pansensitive ecoli paroxysmal Atrial fibrillation Appears to be new onset Continue Cardizem iron studies consistent with inflammation not gi bleed, will challenge with eliquis Anemia of chronic disease Stable, b12 folate normal, iron consistent with inflammatory anemia will transfused 1 unit 01/28/22, hgb improved appropriately Hypothyroid Elevated TSH, increased Synthroid to 112 mcg from 88 Follow-up TSH in 1 month Hypertension low bp, hold roddy i Chronic back pain Flexeril Mood disorder Prozac, Seroquel DVT prophylaxis with Lovenox Full code reason for continued hospitalization: monitoring for tolerance of apixaban Quality Stroke Does the patient have a stroke diagnosis?: No VTE Prior VTE?: No VTE Risk Level:: Medical - moderate - high VTE Device Contraindication: Treatment Not Indicated VTE Drug Contraindication: N/A - Med Ordered
[2022-01-29 12:25] VITALS: BP 136/78; PULSE 88; RESP 20; TEMP 36.5; O2SAT 97
--- NOTE | 2022-01-29 13:35 | PM.PNCARD ---
Subjective Subjective Date of Service: 01/29/22 <CLYDE Panda - Last Filed: 01/29/22 14:00> 01/29/22 <Mehdi Weber MD - Last Filed: 01/29/22 16:44> Principal diagnosis: mechanical fall, compression fracture, anemia, new afib <CLYDE Panda - Last Filed: 01/29/22 14:00> Interval history: Seen at 0950. Today she reports feeling well overall. She admits to back soreness when she moves in bed. Breathing comfortable. No chest pains, palpitations, dizziness, edema. No signs of bleeding. Tells me that she has blood transfusions every 2 weeks for her chronic anemia. Has Biotronik dual chamber pacemaker and follows with Dr King. Is now aware of any atrial fibrillation history. Tele monitor shows atrial flutter with mostly controlled rates, intermittent V paced beats and some runs that appear more like AF. <CLYDE Panda - Last Filed: 01/29/22 14:00> Review of Systems Review of Systems as above <CLYDE Panda - Last Filed: 01/29/22 14:00> Yes all other systems are reviewed and are negative <CLYDE Panda - Last Filed: 01/29/22 14:00> Physical Exam Vital Signs: Last Vital Signs Temp 97.7 F 01/29/22 12:25 Pulse 88 01/29/22 12:25 Resp 20 01/29/22 12:25 BP 136/78 01/29/22 12:25 Pulse Ox 97 01/29/22 12:25 O2 Del Method 01/29/22 12:25 BMI result Body Mass Index 24.7 <CLYDE Panda - Last Filed: 01/29/22 14:00> Const General: cooperative, healthy appearing, comfortable and no acute distress <CLYDE Panda Last Filed: 01/29/22 14:00> Orientation/consciousness: patient oriented x3 <CLYDE Panda - Last Filed: 01/29/22 14:00> Neck Neck: Yes normal visual inspection and Yes no JVD <CLYDE Panda Last Filed: 01/29/22 14:00> Chest Other: Pacer site left upper chest benign <Selina KahnCASSANDRAC - Last Filed: 01/29/22 14:00> Chest palpation & inspection: normal inspection of the chest <Selina KahnCASSANDRAC - Last Filed: 01/29/22 14:00> Resp Effort & Inspection: normal respiratory effort <Selina CrissANNE - Last Filed: 01/29/22 14:00> Auscultation: clear to auscultation bilaterally, no crackles, no rales, no rhonchi and no wheezes <Selina Criss, NPC - Last Filed: 01/29/22 14:00> Cardio Rate: regular rate <Selina Criss, NP - Last Filed: 01/29/22 14:00> Rhythm: regular rhythm <Selina Criss, NP - Last Filed: 01/29/22 14:00> Heart sounds: S1 normal heart sound present, S2 normal heart sound present, no gallops, no murmurs and no rubs <Selina ANNE KahnC - Last Filed: 01/29/22 14:00> Peripheral pulses: Peripheral pulses 2+ throughout <Selina ANNE KahnC - Last Filed: 01/29/22 14:00> GI Inspection: Yes normal to inspection <Selina Criss, NPC - Last Filed: 01/29/22 14:00> Neuro General: patient oriented x3 <Selina CASSANDRA Kahn - Last Filed: 01/29/22 14:00> Extrem General: Yes normal to inspection <Selina ANNE Kahn-C - Last Filed: 01/29/22 14:00> Psych Appearance: grossly normal <Selina ANNE KahnC - Last Filed: 01/29/22 14:00> Mental Status: mental status grossly normal <Selina ANNE Kahn- - Last Filed: 01/29/22 14:00> Speech and movement: Normal speech and movement present <[facility] ANNE Kahn-C - Last Filed: 01/29/22 14:00> Objective Labs and Meds Result diagrams: : 01/29/22 06:07 01/29/22 06:07 <CLYDE Panda - Last Filed: 01/29/22 14:00> Lab results: Laboratory Results - last 24 hr 01/28/22 01/28/22 01/29/22 09:35 23:43 06:07 WBC 7.4 RBC 2.70 L Hgb 8.6 L Hct 25.6 L MCV 94.8 MCH 31.9 MCHC 33.6 RDW 20.5 H Plt Count 209 MPV 12.4 H Absolute Nucleated RBC 0.070 H Nucleated RBC % (auto) 1.0 H Sodium 136 Potassium 3.9 Chloride 103 Carbon Dioxide 22 Anion Gap 15 BUN 12 Creatinine 0.81 Estim Creat Clear Calc 45.4 Estimated GFR > 60 Random Glucose 101 Fasting Glucose Calcium 8.0 L Magnesium 1.7 Crossmatch (AHG) See Detail 01/29/22 06:07 WBC RBC Hgb Hct MCV MCH MCHC RDW Plt Count MPV Absolute Nucleated RBC Nucleated RBC % (auto) Sodium 138 Potassium 4.2 Chloride 107 Carbon Dioxide 24 Anion Gap 11 L BUN 12 Creatinine 0.78 Estim Creat Clear Calc 47.2 Estimated GFR > 60 Random Glucose Fasting Glucose 85 Calcium 8.4 Magnesium Crossmatch (AHG) <CLYDE Panda - Last Filed: 01/29/22 14:00> Progress Note: A&P Assessment and plan (1) Atrial fibrillation, new onset: Status: Acute <CLYDE Panda - Last Filed: 01/29/22 14:00> Assessment and Plan: Admit after mechanical fall, back pain with finding of compression fracture. EKG showed Afib RVR, which is new for her. Treated with Diltiazem for heart rate control. Rates did improve and she may have converted back to SR for brief period. Tele today shows Atrial flutter, rate 80-90s. More elevated rates at times yesterday and during the night which seem to be Afib. At times she does have V paced rhythm. No reports of CP or palpitations. EKG shows Afib, RBBB, downsloping ST leads V1-V4 which are likely related to her RBBB. Troponin normal. Pacemaker interrogation today shows ongoing atrial arrythmia. Will continue current Diltiazem, dose could be increased if needed for rate control. Echo is pending. She has known chronic anemia, has routine blood transfusions and follows with Dr Boucher. Hgb 8.6 today. No bleeding issues reported. CHADSVASc score 4. She is new to Eliquis 5 mg bid, which is the appropriate dose for her. Discussed diagnosis of atrial fibrillation/ flutter with her, need for anticoagulation. We will plan to review echo once completed. We will sign of case, recall if needed. Upon discharge, she will follow with her own E [employer] Specialist Dr King. <Selina Kahn, CLYDE - Last Filed: 01/29/22 14:00> Admit after mechanical fall, back pain with finding of compression fracture. EKG showed Afib RVR, which is new for her. Treated with Diltiazem for heart rate control. Rates did improve and she may have converted back to SR for brief period. Tele today shows Atrial flutter, rate 80-90s. More elevated rates at times yesterday and during the night which seem to be Afib. At times she does have V paced rhythm. No reports of CP or palpitations. EKG shows Afib, RBBB, downsloping ST leads V1-V4 which are likely related to her RBBB. Troponin normal. Pacemaker interrogation today shows ongoing atrial arrythmia. Will continue current Diltiazem, dose could be increased if needed for rate control. Echo is pending. She has known chronic anemia, has routine blood transfusions and follows with Dr Boucher. Hgb 8.6 today. No bleeding issues reported. CHADSVASc score 4. She is new to Eliquis 5 mg bid, which is the appropriate dose for her. Discussed diagnosis of atrial fibrillation/ flutter with her, need for anticoagulation. We will plan to review echo once completed. We will sign of case, recall if needed. Upon discharge, she will follow with her own E [employer]ist Dr King. Patient seen and examined. Case discussed with Selina. Pacemaker evaluation shows persistent atrial arrhythmia appears to be either flutter or atrial tachycardia. Heart rate is controlled on current Cardizem therapy. Started on oral anticoagulation therapy with Eliquis at 5 mg b.i.d.. Given her underlying anemia she remains at high risk for complications related to bleeding. This needs to be pursue closely. Follow up with Hematology to make sure she does not any component of iron deficient anemia and follow up CBC closely. Continue Cardizem therapy. Advised to follow-up with her own automatic drilling machine operator as outpatient. Echocardiogram is pending. <Mehdi Weber MD - Last Filed: 01/29/22 16:44> (2) Hx of cardiac pacemaker: Status: Acute <CLYDE Panda - Last Filed: 01/29/22 14:00> Assessment and Plan: Biotronik Dual chamber pacemaker, interrogation today shows batter 15% ( 7 months to YANNICK), DDD- CLS mode, base rates 60, upper tracking rate 130, A/ V leads functioning normally, Atrial burden 27% since 08/22/21, A pacing 30%, V pacing 27% since 08/22/21, Atrial arrythmia alerts starting 11/04/21. - Reviewed findings with pt. - Chg code [id number] <CLYDE Panda - Last Filed: 01/29/22 14:00> Biotronik Dual chamber pacemaker, interrogation today shows batter 15% ( 7 months to YANNICK), DDD- CLS mode, base rates 60, upper tracking rate 130, A/ V leads functioning normally, Atrial burden 27% since 08/22/21, A pacing 30%, V pacing 27% since 08/22/21, Atrial arrythmia alerts starting 11/04/21. - Reviewed findings with pt. - Chg code [id number] Pacemaker was evaluated and noted as having persistent atrial tachycardia/flutter. Pacemaker function is adequate otherwise. Will sign of the case. Patient can follow up with her automatic drilling machine operator as outpatient. <Mehdi Weber MD - Last Filed: 01/29/22 16:44> (3) Anemia: Status: Acute <CLYDE Panda - Last Filed: 01/29/22 14:00> Assessment and Plan: as above <CLYDE Panda - Last Filed: 01/29/22 14:00> (4) Compression fracture: Status: Acute <CLYDE Panda - Last Filed: 01/29/22 14:00> Time Spent With Patient Time: Total time spent is greater than 50% in coordination of care (as documented) at patient's floor/unit and/or counseling patient: 24 <CLYDE Panda - Last Filed: 01/29/22 14:00> Progress Note: Quality Stroke Does the patient have a stroke diagnosis?: No <CLYDE Panda - Last Filed: 01/29/22 14:00> Procedures Date of Service Date of Service: 01/29/22 <CLYDE Panda - Last Filed: 01/29/22 14:00>
[2022-01-29 16:00] VITALS: BP 146/85; PULSE 81; RESP 17; TEMP 36.6; O2SAT 98
--- NOTE | 2022-01-29 16:10 | MHC.CM.PN ---
Addendum entered by Rema Bustamante 01/30/22 13:07: Per , Echo has already been completed. Original Note: Spoke with Patient re [facility]. She would like to go home with services. Called patients dtr Yaneth to discuss Dispo. PT rec STR. No answer, left a VM. Patient is planned for an ECHO today.
[2022-01-29] MEDS: Cyclobenzaprine HCl 10 MG TABLET PO (20:44)
[2022-01-29] MEDS: cefTRIAXone sodium 1 GM in 0.9 % Sodium Chloride 50 ML IV (20:45)
[2022-01-29] MEDS: QUEtiapine Fumarate 300 MG TABLET PO (20:45)
[2022-01-29] MEDS: Apixaban 5 MG TABLET PO (20:45)
[2022-01-29] MEDS: oxyCODONE HCl Immed Release 5 MG TABLET PO (20:53)
[2022-01-29 23:49] VITALS: BP 144/81; PULSE 106; RESP 18; TEMP 37; O2SAT 96
[2022-01-30] MEDS: Levothyroxine Sodium 112 MCG TABLET PO (04:57)
[2022-01-30 05:09] VITALS: BP 176/100; PULSE 88; RESP 20; TEMP 37.1; O2SAT 94
[2022-01-30 05:12] VITALS: BP 151/87
[2022-01-30 07:00] LABS: Hematocrit 28.8 % (37.0-47.0); Hemoglobin 9.6 g/dl (12.0-16.0); Mean Corpuscular HGB Conc 33.3 g/dl (31.0-35.0); Mean Corpuscular Hemoglobin 31.7 pg (27.0-33.0); Mean Platelet Volume 12.2 fL (9.4-12.3); NRBC Pct Auto 0.7 /100WBC (0.0-0.2); Platelet Count 218 X10*3/uL (160-400); Red Blood Count 3.03 X10*6/uL (4.20-5.50); Red Cell Distribution Width 21.1 % (11.0-16.0); White Blood Count 6.9 X10*3/uL (4.8-10.8)
[2022-01-30 07:20] VITALS: BP 142/77; PULSE 79; RESP 20; TEMP 36.8; O2SAT 95
[2022-01-30 07:45] LABS: Anion Gap 16 (12-20); Blood Urea Nitrogen 12 mg/dL (9-16); Calcium 8.4 mg/dL (8.4-10.2); Carbon Dioxide 20 mmol/L (22-29); Chloride 102 mmol/L (96-108); Creatinine Clr Calc Pharmacy 46.6; Estimated Glomerular Filt Rate > 60; Glucose Fasting 83 mg/dL (60-99); Potassium 4.5 mmol/L (3.3-5.1); Sodium 133 mmol/L (135-145)
[2022-01-30] MEDS: dilTIAZem HCL CD 120 MG CAP.ER.DEG PO (09:31)
[2022-01-30] MEDS: 0.9 % Sodium Chloride Flush 3 ML SYRINGE IVFLUSH ×3 (09:31→23:05)
[2022-01-30] MEDS: Apixaban 5 MG TABLET PO (09:31)
[2022-01-30] MEDS: FLUoxetine HCl 20 MG CAPSULE 40 MG PO (09:31)
[2022-01-30] MEDS: oxyCODONE HCl Immed Release 5 MG TABLET PO ×2 (09:37→16:13)
--- NOTE | 2022-01-30 09:47 | HO.PM.IMPN ---
Subjective Subjective Date of Service: 01/30/22 Interval History: cc: fall interval history:back pain Cardiovascular Cardiovascular: Reports no additional cardiovascular complaints Respiratory Respiratory: Reports no additional respiratory complaints Physical Exam Vital Signs: Vital Signs: Last Vital Signs Temp 98.2 F 01/30/22 07:20 Pulse 79 01/30/22 07:20 Resp 20 01/30/22 07:20 BP 142/77 H 01/30/22 07:20 Pulse Ox 95 01/30/22 07:20 O2 Del Method 01/30/22 07:20 BMI result Body Mass Index 24.7 Const: General: cooperative, healthy appearing, comfortable and no acute distress Orientation/consciousness: patient oriented x3 Neck: Neck: Yes normal visual inspection and Yes no JVD Chest: Other: Pacer site left upper chest benign Chest palpation & inspection: normal inspection of the chest Resp: Effort & Inspection: normal respiratory effort Auscultation: clear to auscultation bilaterally, no crackles, no rales, no rhonchi and no wheezes Cardio: Rate: regular rate Rhythm: regular rhythm Heart sounds: S1 normal heart sound present, S2 normal heart sound present, no gallops, no murmurs and no rubs Peripheral pulses: Peripheral pulses 2+ throughout GI: Inspection: Yes normal to inspection Neuro: General: patient oriented x3 Extrem: General: Yes normal to inspection Psych: Appearance: grossly normal Mental Status: mental status grossly normal Speech and movement: Normal speech and movement present Objective Data Active Medications Acetaminophen (Acetaminophen 325 Mg Tablet) 650 mg PO Q6H PRN PRN Reason: Pain, Mild (Pain Scale 1-3) Last Admin: 01/25/22 22:09 Dose: 650 mg Documented By: RAMO Calcium Carbonate (Calcium Carbonate 750 Mg Tab.Chew) 750 mg PO Q4H PRN PRN Reason: heartburn Last Admin: 01/26/22 20:54 Dose: 750 mg Documented By: NANCY Cyclobenzaprine HCl (Cyclobenzaprine Hcl 10 Mg Tablet) 10 mg PO BEDTIME [facility] Last Admin: 01/29/22 20:44 Dose: 10 mg Documented By: NANCY Diltiazem HCl (Diltiazem Hcl Cd 120 Mg Cap.Er.Deg) 120 mg PO DAILY [facility]; Protocol Last Admin: 01/30/22 09:31 Dose: 120 mg Documented By: MK Enoxaparin Sodium (Enoxaparin Sodium 80 Mg/0.8 Ml Syringe) 70 mg 1 mg/kg (70 mg) SUBCUT Q12H [facility] Fluoxetine HCl (Fluoxetine Hcl 20 Mg Capsule) 40 mg PO DAILY [facility] Last Admin: 01/30/22 09:31 Dose: 40 mg Documented By: MK Ceftriaxone Sodium 1 gm/ (Sodium Chloride) 50 mls @ 100 mls/hr IV Q24H [facility] Last Infusion: 01/30/22 00:05 Dose: 100 mls/hr Documented By: NANCY Levothyroxine Sodium (Levothyroxine Sodium 112 Mcg Tablet) 112 mcg PO 0600 [facility] Last Admin: 01/30/22 04:57 Dose: 112 mcg Documented By: NANCY Oxycodone HCl (Oxycodone Hcl Immed Release 5 Mg Tablet) 5 mg PO Q6H PRN PRN Reason: moderate pain Last Admin: 01/30/22 09:37 Dose: 5 mg Documented By: MK Quetiapine Fumarate (Quetiapine Fumarate 300 Mg Tablet) 300 mg PO BEDTIME [facility] Last Admin: 01/29/22 20:45 Dose: 300 mg Documented By: NANCY Senna (Sennosides 8.6 Mg Tablet) 17.2 mg PO BEDTIME PRN PRN Reason: Constipation Sodium Chloride (0.9 % Sodium Chloride Flush 3 Ml Syringe) 3 ml IVFLUSH QSHIFT [facility] Last Admin: 01/30/22 09:31 Dose: 3 ml Documented By: MK Labs CBC & Chem 7: 01/30/22 06:22 01/30/22 06:22 Labs: Laboratory Results - last 24 hr 01/28/22 01/30/22 01/30/22 09:35 06:22 06:22 MCV 95.0 MCH 31.7 MCHC 33.3 RDW 21.1 H Plt Count 218 MPV 12.2 Absolute Nucleated RBC 0.050 H Nucleated RBC % (auto) 0.7 H Anion Gap 16 Estim Creat Clear Calc 46.6 Estimated GFR > 60 Fasting Glucose 83 Calcium 8.4 Crossmatch (AHG) See Detail Microbiology Microbiology Results: Microbiology 01/24/22 21:27 Blood Culture - Final Blood - Venous No growth after 5 days. 01/24/22 21:27 Blood Culture - Final Blood - Venous No growth after 5 days. Assessment and Plan (1) Atrial fibrillation, new onset: Status: Acute Plan 81-year-old female with past medical history of hypothyroid, chronic alcohol dependence, hypertension, anxiety/depression, status post pacemaker, chronic back pain, osteoporosis, anemia of chronic disease presented with back pain, found to have new onset atrial fibrillation and urinary tract infection Mechanical fall with T12, L3 age indeterminate fractures Pain control PT/OT would prefer conservative management, but if unable to work with pt may need kyphoplasty orthostatic hypotension improved Urinary tract infection urine grew pansensitive ecoli completed 5 days Rocephin paroxysmal Atrial fibrillation Appears to be new onset Continue Cardizem iron studies consistent with inflammation not gi bleed, challenging with lovenox Anemia of chronic disease Stable, b12 folate normal, iron consistent with inflammatory anemia transfused 1 unit 01/28/22, hgb improved appropriately Hypothyroid Elevated TSH, increased Synthroid to 112 mcg from 88 Follow-up TSH in 1 month Hypertension had low bp, orthostatic, holding roddy i Chronic back pain Flexeril Mood disorder Prozac, Seroquel DVT prophylaxis with Lovenox Full code reason for continued hospitalization: monitoring for tolerance of lovenox, ambulation, if unable to ambulate may need IR intervention Quality Stroke Does the patient have a stroke diagnosis?: No VTE Prior VTE?: No VTE Risk Level:: Medical - moderate - high VTE Device Contraindication: Treatment Not Indicated VTE Drug Contraindication: N/A - Med Ordered
[2022-01-30 16:00] VITALS: BP 161/86; PULSE 74; RESP 20; TEMP 36.9; O2SAT 96
[2022-01-30] MEDS: Cyclobenzaprine HCl 10 MG TABLET PO (20:12)
[2022-01-30] MEDS: QUEtiapine Fumarate 300 MG TABLET PO (20:12)
[2022-01-30] MEDS: Enoxaparin Sodium 80 MG/0.8 ML SYRINGE 70 MG SUBCUT (20:13)
[2022-01-30] MEDS: Acetaminophen 325 MG TABLET 650 MG PO (20:16)
[2022-01-30 23:38] VITALS: BP 158/79; PULSE 86; RESP 18; TEMP 37; O2SAT 96
[2022-01-31 04:09] VITALS: BP 111/74; PULSE 86; RESP 20; TEMP 37; O2SAT 96
[2022-01-31] MEDS: oxyCODONE HCl Immed Release 5 MG TABLET PO ×2 (04:57→18:11)
[2022-01-31] MEDS: Levothyroxine Sodium 112 MCG TABLET PO (04:57)
[2022-01-31 06:28] LABS: Hematocrit 28.6 % (37.0-47.0); Hemoglobin 9.5 g/dl (12.0-16.0); Mean Corpuscular HGB Conc 33.2 g/dl (31.0-35.0); Mean Corpuscular Hemoglobin 31.1 pg (27.0-33.0); Mean Corpuscular Volume 93.8 fL (80.0-98.0); NRBC Pct Auto 0.7 /100WBC (0.0-0.2); Platelet Count 221 X10*3/uL (160-400); Red Blood Count 3.05 X10*6/uL (4.20-5.50); Red Cell Distribution Width 21.2 % (11.0-16.0); White Blood Count 7.4 X10*3/uL (4.8-10.8)
[2022-01-31 07:03] LABS: Anion Gap 14 (12-20); Blood Urea Nitrogen 14 mg/dL (9-16); Carbon Dioxide 25 mmol/L (22-29); Chloride 105 mmol/L (96-108); Estimated Glomerular Filt Rate 58; Glucose Fasting 78 mg/dL (60-99); Sodium 139 mmol/L (135-145)
[2022-01-31 07:54] VITALS: BP 138/86; PULSE 72; RESP 16; TEMP 35.9; O2SAT 94
[2022-01-31] MEDS: Enoxaparin Sodium 80 MG/0.8 ML SYRINGE 70 MG SUBCUT ×2 (10:21→22:19)
[2022-01-31] MEDS: FLUoxetine HCl 20 MG CAPSULE 40 MG PO (10:21)
[2022-01-31] MEDS: dilTIAZem HCL CD 120 MG CAP.ER.DEG PO (10:21)
[2022-01-31] MEDS: 0.9 % Sodium Chloride Flush 3 ML SYRINGE IVFLUSH ×3 (10:28→23:29)
[2022-01-31 11:37] VITALS: BP 136/76; PULSE 89; RESP 18; TEMP 37.4; O2SAT 97
--- NOTE | 2022-01-31 13:57 | P.PNIM_ITS ---
Subjective Subjective Date of Service: 01/31/22 Interval History: the patient was seen and evaluated this morning Laying in bed, complaining of pain in her back Was able to participate with physical therapy who recommended short-term rehab Denies any fever, chills or shortness of breath No reported other overnight events. Systemic review: No fever, chills or weakness No chest pain, palpitation No shortness of breath or coughing No abdominal pain, nausea or vomiting No urinary symptoms No any rash or wounds back pain with exertion Physical Exam Vital Signs: Vital Signs: Last Vital Signs Temp 99.3 F 01/31/22 11:37 Pulse 89 01/31/22 11:37 Resp 18 01/31/22 11:37 BP 136/76 01/31/22 11:37 Pulse Ox 97 01/31/22 11:37 O2 Del Method 01/31/22 11:37 BMI result Body Mass Index 24.7 Const: Other: Constitutional : Alert, oriented, not in distress Neck : Normal inspection, Supple Cardiovascular : RRR, no JVP, no lower extremity edema Respiratory : fair bilateral air entry, no crackles, wheezes or rhonchi Gastrointestinal: soft, lax, Normal bowel sounds, Non tender Skin : Warm, Dry Neurological : Alert & oriented x3, No focal deficit Objective Data Active Medications Acetaminophen (Acetaminophen 325 Mg Tablet) 650 mg PO Q6H PRN PRN Reason: Pain, Mild (Pain Scale 1-3) Last Admin: 01/30/22 20:16 Dose: 650 mg Documented By: SARITA Calcium Carbonate (Calcium Carbonate 750 Mg Tab.Chew) 750 mg PO Q4H PRN PRN Reason: heartburn Last Admin: 01/26/22 20:54 Dose: 750 mg Documented By: NANCY Cyclobenzaprine HCl (Cyclobenzaprine Hcl 10 Mg Tablet) 10 mg PO BEDTIME [facility] Last Admin: 01/30/22 20:12 Dose: 10 mg Documented By: SARITA Diltiazem HCl (Diltiazem Hcl Cd 120 Mg Cap.Er.Deg) 120 mg PO DAILY [facility]; Protocol Last Admin: 01/31/22 10:21 Dose: 120 mg Documented By: MARY Enoxaparin Sodium (Enoxaparin Sodium 80 Mg/0.8 Ml Syringe) 70 mg 1 mg/kg (70 mg) SUBCUT Q12H [facility] Last Admin: 01/31/22 10:21 Dose: 70 mg Documented By: MARY Fluoxetine HCl (Fluoxetine Hcl 20 Mg Capsule) 40 mg PO DAILY [facility] Last Admin: 01/31/22 10:21 Dose: 40 mg Documented By: MARY Levothyroxine Sodium (Levothyroxine Sodium 112 Mcg Tablet) 112 mcg PO 0600 [facility] Last Admin: 01/31/22 04:57 Dose: 112 mcg Documented By: HAI Oxycodone HCl (Oxycodone Hcl Immed Release 5 Mg Tablet) 5 mg PO Q6H PRN PRN Reason: moderate pain Last Admin: 01/31/22 04:57 Dose: 5 mg Documented By: HAI Quetiapine Fumarate (Quetiapine Fumarate 300 Mg Tablet) 300 mg PO BEDTIME [facility] Last Admin: 01/30/22 20:12 Dose: 300 mg Documented By: SARITA Senna (Sennosides 8.6 Mg Tablet) 17.2 mg PO BEDTIME PRN PRN Reason: Constipation Sodium Chloride (0.9 % Sodium Chloride Flush 3 Ml Syringe) 3 ml IVFLUSH QSHIFT [facility] Last Admin: 01/31/22 10:28 Dose: 3 ml Documented By: MARY Labs CBC & Chem 7: 01/31/22 05:50 01/31/22 05:50 Labs: Laboratory Results - last 24 hr 01/31/22 01/31/22 05:50 05:50 MCV 93.8 MCH 31.1 MCHC 33.2 RDW 21.2 H Plt Count 221 MPV 12.0 Absolute Nucleated RBC 0.050 H Nucleated RBC % (auto) 0.7 H Anion Gap 14 Estim Creat Clear Calc 40.0 Estimated GFR 58 Fasting Glucose 78 Calcium 9.0 D Assessment and Plan (1) Compression fracture: Status: Acute (2) Back pain: Status: Acute Plan 81-year-old female with past medical history of hypothyroid, chronic alcohol dependence, hypertension, anxiety/depression, status post pacemaker, chronic back pain, osteoporosis, anemia of chronic disease presented with back pain, found to have new onset atrial fibrillation and urinary tract infection Mechanical fall with T12, L3 age indeterminate fractures Pain control PT/OT would prefer conservative management, able to participate with physical therapy To discussed with IR about kyphoplasty orthostatic hypotension improved Urinary tract infection urine grew pansensitive ecoli completed 5 days Rocephin paroxysmal Atrial fibrillation Appears to be new onset Continue Cardizem iron studies consistent with inflammation not gi bleed, challenging with lovenox done, no drop in hemoglobin Anemia of chronic disease Stable, b12 folate normal, iron consistent with inflammatory anemia transfused 1 unit 01/28/22, hgb improved appropriately Hypothyroid Elevated TSH, increased Synthroid to 112 mcg from 88 Follow-up TSH in 1 month Hypertension had low bp, orthostatic, holding roddy i Chronic back pain Flexeril Mood disorder Prozac, Seroquel DVT prophylaxis with Lovenox Full code reason for continued hospitalization: monitoring for tolerance of lovenox, PT therapy, possible IR intervention pending safe discharge plan Quality Stroke Does the patient have a stroke diagnosis?: No VTE Prior VTE?: No VTE Risk Level:: Medical - moderate - high VTE Device Contraindication: Treatment Not Indicated VTE Drug Contraindication: N/A - Med Ordered
[2022-01-31 15:06] VITALS: BP 147/96; PULSE 80; RESP 18; TEMP 36.7; O2SAT 98
--- NOTE | 2022-01-31 15:49 | MHC.CM.PN ---
Female 81 DX AFIB Compression FX s/p fall DP STR via BLS. She has received multiple bed offers. Her preference is [facility]. She will transport via BLS.
[2022-01-31 17:58] LABS: COVID-19 Test Negative (Negative); IDNOW Serial# 9DB6401D
[2022-01-31 20:11] VITALS: PULSE 90; RESP 18; TEMP 37.4
[2022-01-31] MEDS: QUEtiapine Fumarate 300 MG TABLET PO (22:17)
[2022-01-31] MEDS: Cyclobenzaprine HCl 10 MG TABLET PO (22:17)
[2022-01-31 22:23] VITALS: BP 147/81; PULSE 81
[2022-02-01] VITALS: BP 141/83; PULSE 86; RESP 18; TEMP 37
[2022-02-01] MEDS: oxyCODONE HCl Immed Release 5 MG TABLET PO ×3 (02:43→21:57)
[2022-02-01 04:09] VITALS: BP 102/58; PULSE 80; RESP 16; TEMP 36.7; O2SAT 92
[2022-02-01] MEDS: Levothyroxine Sodium 112 MCG TABLET PO (05:43)
[2022-02-01 06:40] LABS: Hematocrit 28.2 % (37.0-47.0); Hemoglobin 9.3 g/dl (12.0-16.0); Mean Corpuscular Hemoglobin 31.5 pg (27.0-33.0); Mean Corpuscular Volume 95.6 fL (80.0-98.0); Mean Platelet Volume 12.4 fL (9.4-12.3); NRBC Pct Auto 0.5 /100WBC (0.0-0.2); Platelet Count 214 X10*3/uL (160-400); Red Blood Count 2.95 X10*6/uL (4.20-5.50); Red Cell Distribution Width 20.9 % (11.0-16.0); White Blood Count 6.4 X10*3/uL (4.8-10.8)
[2022-02-01 07:01] LABS: Anion Gap 11 (12-20); Blood Urea Nitrogen 14 mg/dL (9-16); Calcium 8.9 mg/dL (8.4-10.2); Carbon Dioxide 26 mmol/L (22-29); Chloride 103 mmol/L (96-108); Creatinine Clr Calc Pharmacy 38.3; Estimated Glomerular Filt Rate 56; Glucose Random 93 mg/dL (60-115); Sodium 136 mmol/L (135-145)
[2022-02-01 07:41] VITALS: BP 114/65; PULSE 78; RESP 17; TEMP 36.4; O2SAT 95
[2022-02-01] MEDS: FLUoxetine HCl 20 MG CAPSULE 40 MG PO (07:44)
[2022-02-01] MEDS: dilTIAZem HCL CD 120 MG CAP.ER.DEG PO (07:44)
[2022-02-01] MEDS: Enoxaparin Sodium 80 MG/0.8 ML SYRINGE 70 MG SUBCUT (07:45)
[2022-02-01] MEDS: 0.9 % Sodium Chloride Flush 3 ML SYRINGE IVFLUSH ×2 (07:49→17:07)
[2022-02-01] MEDS: ondansetron HCL 4 MG/2 ML VIAL IVPUSH (08:54)
[2022-02-01] MEDS: Lactulose 20 GM/30 ML SOLUTION PO (11:58)
--- NOTE | 2022-02-01 13:32 | P.PNIM_ITS ---
Subjective Subjective Date of Service: 02/01/22 Interval History: the patient was seen and evaluated this morning Laying in bed, complaining of pain in her back and unable to participate with physical therapy Denies any fever, chills or shortness of breath No reported other overnight events. Systemic review: No fever, chills or weakness No chest pain, palpitation No shortness of breath or coughing No abdominal pain, nausea or vomiting No urinary symptoms No any rash or wounds back pain Physical Exam Vital Signs: Vital Signs: Last Vital Signs Temp 97.6 F 02/01/22 07:41 Pulse 78 02/01/22 07:41 Resp 17 02/01/22 07:41 BP 114/65 02/01/22 07:41 Pulse Ox 95 02/01/22 07:41 O2 Del Method 02/01/22 07:41 FiO2 98 01/31/22 20:11 BMI result Body Mass Index 24.7 Const: Other: Constitutional : Alert, oriented, not in distress Neck : Normal inspection, Supple Cardiovascular : RRR, no JVP, no lower extremity edema Respiratory : fair bilateral air entry, no crackles, wheezes or rhonchi Gastrointestinal: soft, lax, Normal bowel sounds, Non tender Skin : Warm, Dry Back: back pain Neurological : Alert & oriented x3, No focal deficit Objective Data Active Medications Acetaminophen (Acetaminophen 325 Mg Tablet) 650 mg PO Q6H PRN PRN Reason: Pain, Mild (Pain Scale 1-3) Last Admin: 01/30/22 20:16 Dose: 650 mg Documented By: SARITA Calcium Carbonate (Calcium Carbonate 750 Mg Tab.Chew) 750 mg PO Q4H PRN PRN Reason: heartburn Last Admin: 01/26/22 20:54 Dose: 750 mg Documented By: NANCY Cyclobenzaprine HCl (Cyclobenzaprine Hcl 10 Mg Tablet) 10 mg PO BEDTIME [facility] Last Admin: 01/31/22 22:17 Dose: 10 mg Documented By: LEILA Diltiazem HCl (Diltiazem Hcl Cd 120 Mg Cap.Er.Deg) 120 mg PO DAILY [facility]; Protocol Last Admin: 02/01/22 07:44 Dose: 120 mg Documented By: MARY Enoxaparin Sodium (Enoxaparin Sodium 80 Mg/0.8 Ml Syringe) 70 mg 1 mg/kg (70 mg) SUBCUT Q12H [facility] Last Admin: 02/01/22 07:45 Dose: 70 mg Documented By: MARY Fluoxetine HCl (Fluoxetine Hcl 20 Mg Capsule) 40 mg PO DAILY [facility] Last Admin: 02/01/22 07:44 Dose: 40 mg Documented By: MARY Lactulose (Lactulose 20 Gm/30 Ml Solution) 20 gm PO DAILY [facility] Last Admin: 02/01/22 11:58 Dose: 20 gm Documented By: MARY Levothyroxine Sodium (Levothyroxine Sodium 112 Mcg Tablet) 112 mcg PO 0600 [facility] Last Admin: 02/01/22 05:43 Dose: 112 mcg Documented By: TIAGO Ondansetron HCl (Ondansetron Hcl 4 Mg/2 Ml Vial) 4 mg IVPUSH Q6H PRN PRN Reason: nausea Oxycodone HCl (Oxycodone Hcl Immed Release 5 Mg Tablet) 5 mg PO Q6H PRN PRN Reason: moderate pain Last Admin: 02/01/22 02:43 Dose: 5 mg Documented By: LEILA Quetiapine Fumarate (Quetiapine Fumarate 300 Mg Tablet) 300 mg PO BEDTIME [facility] Last Admin: 01/31/22 22:17 Dose: 300 mg Documented By: LEILA Senna (Sennosides 8.6 Mg Tablet) 17.2 mg PO BEDTIME PRN PRN Reason: Constipation Sodium Chloride (0.9 % Sodium Chloride Flush 3 Ml Syringe) 3 ml IVFLUSH QSHIFT [facility] Last Admin: 02/01/22 07:49 Dose: 3 ml Documented By: MARY Labs CBC & Chem 7: 02/01/22 06:12 02/01/22 06:12 Labs: Laboratory Results - last 24 hr 01/31/22 02/01/22 02/01/22 17:20 06:12 06:12 MCV 95.6 MCH 31.5 MCHC 33.0 RDW 20.9 H Plt Count 214 MPV 12.4 H Absolute Nucleated RBC 0.030 H Nucleated RBC % (auto) 0.5 H Anion Gap 11 L Estim Creat Clear Calc 38.3 Estimated GFR 56 Random Glucose 93 Calcium 8.9 COVID-19 ([facility]UN[facility]) Negative COVID-19 Clin Com See Note Assessment and Plan (1) Compression fracture: Status: Acute (2) Atrial fibrillation, new onset: Status: Acute Plan 81-year-old female with past medical history of hypothyroid, chronic alcohol dependence, hypertension, anxiety/depression, status post pacemaker, chronic back pain, osteoporosis, anemia of chronic disease presented with back pain, found to have new onset atrial fibrillation and urinary tract infection Mechanical fall with T12, L3 age indeterminate fractures Pain control PT/OT would prefer conservative management, able to participate with physical therapy IR to do kyphoplasty npo post midnight orthostatic hypotension improved Urinary tract infection urine grew pansensitive ecoli completed 5 days Rocephin paroxysmal Atrial fibrillation Appears to be new onset Continue Cardizem lovenox for now until procedure done Anemia of chronic disease Stable, b12 folate normal, iron consistent with inflammatory anemia transfused 1 unit 01/28/22, hgb improved appropriately Hypothyroid Elevated TSH, increased Synthroid to 112 mcg from 88 Follow-up TSH in 1 month Hypertension had low bp, orthostatic, holding roddy i Chronic back pain Flexeril Mood disorder Prozac, Seroquel DVT prophylaxis with Lovenox Full code reason for continued hospitalization: monitoring for tolerance of lovenox, PT therapy, pending IR intervention for kyphoplasty pending safe discharge plan Quality Stroke Does the patient have a stroke diagnosis?: No VTE Prior VTE?: No VTE Risk Level:: Medical - moderate - high VTE Device Contraindication: Treatment Not Indicated VTE Drug Contraindication: N/A - Med Ordered
[2022-02-01 16:00] VITALS: BP 129/87; PULSE 86; RESP 17; TEMP 36.6; O2SAT 98
[2022-02-01] MEDS: Acetaminophen 325 MG TABLET 975 MG PO (17:06)
[2022-02-01] MEDS: Sennosides 8.6 MG TABLET PO (21:57)
[2022-02-01] MEDS: Docusate Sodium 100 MG CAPSULE PO (21:57)
[2022-02-01] MEDS: Cyclobenzaprine HCl 10 MG TABLET PO (21:58)
[2022-02-01] MEDS: QUEtiapine Fumarate 300 MG TABLET PO (21:59)
[2022-02-02] VITALS (9 sets, daily range): BP systolic 98–137; BP diastolic 70–89; PULSE 72–93; RESP 12–18; TEMP 36.1–36.7; O2SAT 93–97
[2022-02-02] MEDS: Acetaminophen 325 MG TABLET 975 MG PO ×3 (02:24→21:50)
[2022-02-02] MEDS: 0.9 % Sodium Chloride Flush 3 ML SYRINGE IVFLUSH ×2 (02:26→19:50)
[2022-02-02] MEDS: Levothyroxine Sodium 112 MCG TABLET PO (05:33)
[2022-02-02] MEDS: oxyCODONE HCl Immed Release 5 MG TABLET PO ×2 (10:24→21:51)
[2022-02-02] MEDS: dilTIAZem HCL CD 120 MG CAP.ER.DEG PO (10:24)
[2022-02-02] MEDS: Lactulose 20 GM/30 ML SOLUTION PO (10:25)
[2022-02-02] MEDS: Lidocaine 4 % Patch ADH..PATCH 1 PATCH TRANSDERMA (10:25)
[2022-02-02] MEDS: FLUoxetine HCl 20 MG CAPSULE 40 MG PO (10:25)
[2022-02-02] MEDS: Docusate Sodium 100 MG CAPSULE PO ×2 (10:26→19:49)
[2022-02-02] MEDS: Gabapentin 100 MG CAPSULE PO ×2 (10:26→19:49)
--- NOTE | 2022-02-02 11:30 | PC.NURSE ---
Multiple MD's at pts bedside assessing and informing pt of plan for the day including all procedures. NPO status x for meds maintained.
--- NOTE | 2022-02-02 14:33 | MHC.CM.PN ---
Addendum entered by Rema Bustamante 02/02/22 15:23: Patient is not a candidate for Kyphoplasty. PT did not re eval today; because the patient was off the unit getting the Nuclear test. Original Note: Patient's insurance [employer] has denied auth for STR. The patient is scheduled for a nuc med bone scan for possible Kyphoplasty. DP STR after Kyphoplasty via BLS.
--- NOTE | 2022-02-02 14:57 | P.PNIM_ITS ---
Subjective Subjective Date of Service: 02/02/22 Interval History: the patient was seen and evaluated this morning Laying in bed, feels better overall with decreased back pain No reported other overnight events. Systemic review: No fever, chills or weakness No chest pain, palpitation No shortness of breath or coughing No abdominal pain, nausea or vomiting No urinary symptoms No any rash or wounds back pain improved Physical Exam 2 Vital Signs: Vital Signs: Last Vital Signs Temp 97.4 F 02/02/22 13:14 Pulse 87 02/02/22 14:35 Resp 18 02/02/22 13:14 BP 128/89 02/02/22 14:35 Pulse Ox 97 02/02/22 14:35 O2 Del Method 02/02/22 13:14 FiO2 98 01/31/22 20:11 BMI result Body Mass Index 24.7 Const: Other: Constitutional : Alert, oriented, not in distress Neck : Normal inspection, Supple Cardiovascular : RRR, no JVP, no lower extremity edema Respiratory : fair bilateral air entry, no crackles, wheezes or rhonchi Gastrointestinal: soft, lax, Normal bowel sounds, Non tender Skin : Warm, Dry Back: back pain Neurological : Alert & oriented x3, No focal deficit Objective Data Active Medications Acetaminophen (Acetaminophen 325 Mg Tablet) 975 mg PO QSHIFT [facility] Last Admin: 02/02/22 10:24 Dose: 975 mg Documented By: ELSI Calcium Carbonate (Calcium Carbonate 750 Mg Tab.Chew) 750 mg PO Q4H PRN PRN Reason: heartburn Last Admin: 01/26/22 20:54 Dose: 750 mg Documented By: NANCY Cyclobenzaprine HCl (Cyclobenzaprine Hcl 10 Mg Tablet) 10 mg PO BEDTIME [facility] Last Admin: 02/01/22 21:58 Dose: 10 mg Documented By: KEIRA Dexamethasone (Dexamethasone 2 Mg Tablet) 2 mg PO ONCE ONE Stop: 02/02/22 14:56 Diltiazem HCl (Diltiazem Hcl Cd 120 Mg Cap.Er.Deg) 120 mg PO DAILY [facility]; Protocol Last Admin: 02/02/22 10:24 Dose: 120 mg Documented By: ELSI Docusate Sodium (Docusate Sodium 100 Mg Capsule) 100 mg PO BID [facility] Last Admin: 02/02/22 10:26 Dose: 100 mg Documented By: ELSI Enoxaparin Sodium (Enoxaparin Sodium 80 Mg/0.8 Ml Syringe) 70 mg 1 mg/kg (70 mg) SUBCUT Q12H [facility] Last Admin: 02/01/22 07:45 Dose: 70 mg Documented By: MARY Fluoxetine HCl (Fluoxetine Hcl 20 Mg Capsule) 40 mg PO DAILY [facility] Last Admin: 02/02/22 10:25 Dose: 40 mg Documented By: ELSI Gabapentin (Gabapentin 100 Mg Capsule) 100 mg PO BID [facility] Last Admin: 02/02/22 10:26 Dose: 100 mg Documented By: ELSI Ibuprofen (Ibuprofen 200 Mg Tablet) 200 mg PO BIDWM [facility] Lactulose (Lactulose 20 Gm/30 Ml Solution) 20 gm PO DAILY [facility] Last Admin: 02/02/22 10:25 Dose: 20 gm Documented By: ELSI Levothyroxine Sodium (Levothyroxine Sodium 112 Mcg Tablet) 112 mcg PO 0600 [facility] Last Admin: 02/02/22 05:33 Dose: 112 mcg Documented By: KEIRA Lidocaine (Lidocaine 4 % Patch Adh..Patch) 1 patch TRANSDERMA DAILY [facility]; Protocol Last Admin: 02/02/22 10:25 Dose: 1 patch Documented By: ELSI Ondansetron HCl (Ondansetron Hcl 4 Mg/2 Ml Vial) 4 mg IVPUSH Q6H PRN PRN Reason: nausea Oxycodone HCl (Oxycodone Hcl Immed Release 5 Mg Tablet) 5 mg PO Q6H PRN PRN Reason: moderate pain Last Admin: 02/01/22 02:43 Dose: 5 mg Documented By: LEILA Quetiapine Fumarate (Quetiapine Fumarate 300 Mg Tablet) 300 mg PO BEDTIME [facility] Last Admin: 02/01/22 21:59 Dose: 300 mg Documented By: KEIRA Senna (Sennosides 8.6 Mg Tablet) 17.2 mg PO BEDTIME PRN PRN Reason: Constipation Senna (Sennosides 8.6 Mg Tablet) 8.6 mg PO BEDTIME [facility] Last Admin: 02/01/22 21:57 Dose: 8.6 mg Documented By: KEIRA Sodium Chloride (0.9 % Sodium Chloride Flush 3 Ml Syringe) 3 ml IVFLUSH QSHIFT [facility] Last Admin: 02/02/22 07:30 Dose: Not Given Documented By: ELSI Non-Admin Reason: See Note Labs CBC & Chem 7: 02/01/22 06:12 02/01/22 06:12 Assessment and Plan (1) Bilateral sacroiliitis: Status: Acute (2) Compression fracture: Status: Acute (3) Back pain: Status: Acute (4) Atrial fibrillation, new onset: Status: Acute Plan 81-year-old female with past medical history of hypothyroid, chronic alcohol dependence, hypertension, anxiety/depression, status post pacemaker, chronic back pain, osteoporosis, anemia of chronic disease presented with back pain, found to have new onset atrial fibrillation and urinary tract infection Mechanical fall with T12, L3 age indeterminate fractures Pain better controlled today Bone scan done, IR did not find any new fracture, study showed sacroiliitis as likely cause of the pain No need for kyphoplasty per IR Start small dose gabapentin, ibuprofen and Tylenol around the clock DC oxycodone To do physical therapy with plan for SNF placement paroxysmal Atrial fibrillation Appears to be new onset Continue Cardizem lovenox for now until procedure done orthostatic hypotension improved Urinary tract infection urine grew pansensitive ecoli completed 5 days Rocephin Anemia of chronic disease Stable, b12 folate normal, iron consistent with inflammatory anemia transfused 1 unit 01/28/22, hgb improved appropriately Hypothyroid Elevated TSH, increased Synthroid to 112 mcg from 88 Follow-up TSH in 1 month Hypertension had low bp, orthostatic, holding roddy i Chronic back pain Flexeril Mood disorder Prozac, Seroquel DVT prophylaxis with Lovenox Full code reason for continued hospitalization: monitoring for tolerance of lovenox, pain control and tolerance of PT pending safe discharge plan Quality Stroke Does the patient have a stroke diagnosis?: No VTE Prior VTE?: No VTE Risk Level:: Medical - moderate - high VTE Device Contraindication: Treatment Not Indicated VTE Drug Contraindication: N/A - Med Ordered
[2022-02-02] MEDS: dexAMETHasone 2 MG TABLET PO (15:15)
[2022-02-02] MEDS: Omeprazole 20 MG CAPSULE.DR PO (15:15)
[2022-02-02] MEDS: Ibuprofen 200 MG TABLET PO (17:02)
[2022-02-02] MEDS: Sennosides 8.6 MG TABLET PO (19:49)
[2022-02-02] MEDS: Enoxaparin Sodium 80 MG/0.8 ML SYRINGE 70 MG SUBCUT (19:49)
[2022-02-02] MEDS: QUEtiapine Fumarate 300 MG TABLET PO (19:49)
[2022-02-02] MEDS: Cyclobenzaprine HCl 10 MG TABLET PO (19:49)
[2022-02-03] VITALS: BP 137/80; PULSE 85; RESP 18; TEMP 37; O2SAT 97
[2022-02-03 03:54] VITALS: RESP 75
[2022-02-03] MEDS: Levothyroxine Sodium 112 MCG TABLET PO (05:44)
[2022-02-03] MEDS: Omeprazole 20 MG CAPSULE.DR PO (05:44)
[2022-02-03 07:33] VITALS: BP 103/60; PULSE 82; RESP 20; TEMP 35.7; O2SAT 94
[2022-02-03] MEDS: oxyCODONE HCl Immed Release 5 MG TABLET PO ×3 (09:42→20:58)
[2022-02-03] MEDS: Ibuprofen 200 MG TABLET PO ×2 (09:42→16:59)
[2022-02-03] MEDS: 0.9 % Sodium Chloride Flush 3 ML SYRINGE IVFLUSH ×3 (09:42→23:30)
[2022-02-03] MEDS: Lactulose 20 GM/30 ML SOLUTION PO (09:42)
[2022-02-03] MEDS: Lidocaine 4 % Patch ADH..PATCH 1 PATCH TRANSDERMA (09:43)
[2022-02-03] MEDS: Acetaminophen 325 MG TABLET 975 MG PO ×3 (09:43→23:21)
[2022-02-03] MEDS: FLUoxetine HCl 20 MG CAPSULE 40 MG PO (09:43)
[2022-02-03] MEDS: dilTIAZem HCL CD 120 MG CAP.ER.DEG PO (09:43)
[2022-02-03] MEDS: Enoxaparin Sodium 80 MG/0.8 ML SYRINGE 70 MG SUBCUT (09:44)
[2022-02-03] MEDS: Docusate Sodium 100 MG CAPSULE PO ×2 (09:44→20:58)
[2022-02-03] MEDS: Gabapentin 100 MG CAPSULE PO ×2 (09:44→20:58)
[2022-02-03 11:12] VITALS: BP 96/55; PULSE 81; RESP 18; TEMP 35.8; O2SAT 96
--- NOTE | 2022-02-03 12:57 | HO.PM.IMPN ---
Subjective Subjective Date of Service: 02/03/22 Interval History: the patient was seen and evaluated this morning Laying in bed, complaining of back pain which fluctuate No reported other overnight events. Systemic review: No fever, chills or weakness No chest pain, palpitation No shortness of breath or coughing No abdominal pain, nausea or vomiting No urinary symptoms No any rash or wounds back pain improved Physical Exam Vital Signs: Vital Signs: Last Vital Signs Temp 96.5 F L 02/03/22 11:12 Pulse 81 02/03/22 11:12 Resp 18 02/03/22 11:12 BP 96/55 L 02/03/22 11:12 Pulse Ox 96 02/03/22 11:12 O2 Del Method 02/03/22 11:12 FiO2 98 01/31/22 20:11 BMI result Body Mass Index 24.7 Const: Other: Constitutional : Alert, oriented, not in distress Neck : Normal inspection, Supple Cardiovascular : RRR, no JVP, no lower extremity edema Respiratory : fair bilateral air entry, no crackles, wheezes or rhonchi Gastrointestinal: soft, lax, Normal bowel sounds, Non tender Skin : Warm, Dry Back: back pain Neurological : Alert & oriented x3, No focal deficit Objective Data Active Medications Acetaminophen (Acetaminophen 325 Mg Tablet) 975 mg PO QSHIFT [facility] Last Admin: 02/03/22 09:43 Dose: 975 mg Documented By: RYAN Calcium Carbonate (Calcium Carbonate 750 Mg Tab.Chew) 750 mg PO Q4H PRN PRN Reason: heartburn Last Admin: 01/26/22 20:54 Dose: 750 mg Documented By: NANCY Cyclobenzaprine HCl (Cyclobenzaprine Hcl 10 Mg Tablet) 10 mg PO BEDTIME [facility] Last Admin: 02/02/22 19:49 Dose: 10 mg Documented By: ANTMARY LOU Diltiazem HCl (Diltiazem Hcl Cd 120 Mg Cap.Er.Deg) 120 mg PO DAILY [facility]; Protocol Last Admin: 02/03/22 09:43 Dose: 120 mg Documented By: RYAN Docusate Sodium (Docusate Sodium 100 Mg Capsule) 100 mg PO BID [facility] Last Admin: 02/03/22 09:44 Dose: 100 mg Documented By: RYAN Enoxaparin Sodium (Enoxaparin Sodium 80 Mg/0.8 Ml Syringe) 70 mg 1 mg/kg (70 mg) SUBCUT Q12H [facility] Last Admin: 02/03/22 09:44 Dose: 70 mg Documented By: RYAN Fluoxetine HCl (Fluoxetine Hcl 20 Mg Capsule) 40 mg PO DAILY [facility] Last Admin: 02/03/22 09:43 Dose: 40 mg Documented By: RYAN Gabapentin (Gabapentin 100 Mg Capsule) 100 mg PO BID [facility] Last Admin: 02/03/22 09:44 Dose: 100 mg Documented By: RYAN Ibuprofen (Ibuprofen 200 Mg Tablet) 200 mg PO BIDWM [facility] Last Admin: 02/03/22 09:42 Dose: 200 mg Documented By: RYAN Lactulose (Lactulose 20 Gm/30 Ml Solution) 20 gm PO DAILY [facility] Last Admin: 02/03/22 09:42 Dose: 20 gm Documented By: RYAN Levothyroxine Sodium (Levothyroxine Sodium 112 Mcg Tablet) 112 mcg PO 0600 [facility] Last Admin: 02/03/22 05:44 Dose: 112 mcg Documented By: ELENI Lidocaine (Lidocaine 4 % Patch Adh..Patch) 1 patch TRANSDERMA DAILY [facility]; Protocol Last Admin: 02/03/22 09:43 Dose: 1 patch Documented By: RYAN Omeprazole (Omeprazole 20 Mg Capsule.Dr) 20 mg PO DAILY@0630 [facility] Last Admin: 02/03/22 05:44 Dose: 20 mg Documented By: ELENI Ondansetron HCl (Ondansetron Hcl 4 Mg/2 Ml Vial) 4 mg IVPUSH Q6H PRN PRN Reason: nausea Oxycodone HCl (Oxycodone Hcl Immed Release 5 Mg Tablet) 5 mg PO Q6H PRN PRN Reason: moderate pain Last Admin: 02/03/22 09:42 Dose: 5 mg Documented By: RYAN Quetiapine Fumarate (Quetiapine Fumarate 300 Mg Tablet) 300 mg PO BEDTIME [facility] Last Admin: 02/02/22 19:49 Dose: 300 mg Documented By: ANTMARY LOU Senna (Sennosides 8.6 Mg Tablet) 17.2 mg PO BEDTIME PRN PRN Reason: Constipation Senna (Sennosides 8.6 Mg Tablet) 8.6 mg PO BEDTIME [facility] Last Admin: 02/02/22 19:49 Dose: 8.6 mg Documented By: ANTOIC Sodium Chloride (0.9 % Sodium Chloride Flush 3 Ml Syringe) 3 ml IVFLUSH QSHIFT [facility] Last Admin: 02/03/22 09:42 Dose: 3 ml Documented By: RYAN Labs CBC & Chem 7: 02/01/22 06:12 02/01/22 06:12 Assessment and Plan (1) Bilateral sacroiliitis: Status: Acute (2) Atrial fibrillation, new onset: Status: Acute Plan 81-year-old female with past medical history of hypothyroid, chronic alcohol dependence, hypertension, anxiety/depression, status post pacemaker, chronic back pain, osteoporosis, anemia of chronic disease presented with back pain, found to have new onset atrial fibrillation and urinary tract infection Mechanical fall with T12, L3 age indeterminate fractures Still having pain but overall better controlled Bone scan done, IR did not find any new fracture, study showed sacroiliitis as likely cause of the pain No need for kyphoplasty per IR Continue small dose gabapentin, ibuprofen and Tylenol around the clock oxycodone b.i.d. for now To do physical therapy with plan for SNF placement paroxysmal Atrial fibrillation Appears to be new onset Continue Cardizem Change Lovenox to Eliquis orthostatic hypotension improved Urinary tract infection urine grew pansensitive ecoli completed 5 days Rocephin Anemia of chronic disease Stable, b12 folate normal, iron consistent with inflammatory anemia transfused 1 unit 01/28/22, hgb improved appropriately Hypothyroid Elevated TSH, increased Synthroid to 112 mcg from 88 Follow-up TSH in 1 month Hypertension had low bp, orthostatic, holding roddy i Chronic back pain Flexeril Mood disorder Prozac, Seroquel DVT prophylaxis with Lovenox Full code reason for continued hospitalization: monitoring for tolerance of lovenox, pain control and tolerance of PT pending safe discharge plan Quality Stroke Does the patient have a stroke diagnosis?: No VTE Prior VTE?: No VTE Risk Level:: Medical - moderate - high VTE Device Contraindication: Treatment Not Indicated VTE Drug Contraindication: N/A - Med Ordered
[2022-02-03 15:44] VITALS: BP 122/73; PULSE 80; RESP 16; TEMP 36.2; O2SAT 97
[2022-02-03 19:50] VITALS: BP 137/77; PULSE 85; RESP 20; TEMP 36.6; O2SAT 97
[2022-02-03] MEDS: Apixaban 5 MG TABLET PO (20:58)
[2022-02-03] MEDS: Cyclobenzaprine HCl 10 MG TABLET PO (20:58)
[2022-02-03] MEDS: Sennosides 8.6 MG TABLET PO (20:58)
[2022-02-03] MEDS: QUEtiapine Fumarate 300 MG TABLET PO (20:58)
[2022-02-04] VITALS: BP 116/72; PULSE 89; RESP 18; TEMP 37.1; O2SAT 94
[2022-02-04] MEDS: oxyCODONE HCl Immed Release 5 MG TABLET PO ×3 (04:57→20:23)
[2022-02-04] MEDS: Omeprazole 40 MG CAPSULE.DR PO (04:57)
[2022-02-04] MEDS: Levothyroxine Sodium 112 MCG TABLET PO (04:57)
[2022-02-04] MEDS: 0.9 % Sodium Chloride Flush 3 ML SYRINGE IVFLUSH ×3 (07:29→20:24)
[2022-02-04] MEDS: FLUoxetine HCl 20 MG CAPSULE 40 MG PO (07:30)
[2022-02-04] MEDS: Apixaban 5 MG TABLET PO ×2 (07:30→20:16)
[2022-02-04] MEDS: Ibuprofen 200 MG TABLET PO ×2 (07:30→17:19)
[2022-02-04] MEDS: Gabapentin 100 MG CAPSULE PO ×2 (07:35→20:16)
[2022-02-04] MEDS: dilTIAZem HCL CD 120 MG CAP.ER.DEG PO (07:35)
[2022-02-04] MEDS: Docusate Sodium 100 MG CAPSULE PO ×2 (07:35→20:16)
[2022-02-04] MEDS: Lidocaine 4 % Patch ADH..PATCH 1 PATCH TRANSDERMA (07:35)
[2022-02-04] MEDS: Lactulose 20 GM/30 ML SOLUTION PO (07:35)
[2022-02-04 08:00] VITALS: BP 134/74; PULSE 80; RESP 20; TEMP 36.7; O2SAT 97
[2022-02-04 12:36] VITALS: BP 133/75; PULSE 89; RESP 20; TEMP 36.6; O2SAT 97
--- NOTE | 2022-02-04 13:37 | HO.PM.IMPN ---
Subjective Subjective Date of Service: 02/04/22 Interval History: the patient was seen and evaluated this morning Laying in bed, improved back pain overall No reported other overnight events. Systemic review: No fever, chills or weakness No chest pain, palpitation No shortness of breath or coughing No abdominal pain, nausea or vomiting No urinary symptoms No any rash or wounds back pain improved Physical Exam Vital Signs: Vital Signs: Last Vital Signs Temp 97.8 F 02/04/22 12:36 Pulse 89 02/04/22 12:36 Resp 20 02/04/22 12:36 BP 133/75 02/04/22 12:36 Pulse Ox 97 02/04/22 12:36 O2 Del Method 02/04/22 12:36 FiO2 98 01/31/22 20:11 BMI result Body Mass Index 24.7 Const: Other: Constitutional : Alert, oriented, not in distress Neck : Normal inspection, Supple Cardiovascular : RRR, no JVP, no lower extremity edema Respiratory : fair bilateral air entry, no crackles, wheezes or rhonchi Gastrointestinal: soft, lax, Normal bowel sounds, Non tender Skin : Warm, Dry Back: back pain Neurological : Alert & oriented x3, No focal deficit Objective Data Active Medications Acetaminophen (Acetaminophen 325 Mg Tablet) 975 mg PO QSHIFT [facility] Last Admin: 02/04/22 07:37 Dose: Not Given Documented By: RYAN Non-Admin Reason: Physician Held Med Apixaban (Apixaban 5 Mg Tablet) 5 mg PO BID [facility] Last Admin: 02/04/22 07:30 Dose: 5 mg Documented By: RYAN Calcium Carbonate (Calcium Carbonate 750 Mg Tab.Chew) 750 mg PO Q4H PRN PRN Reason: heartburn Last Admin: 01/26/22 20:54 Dose: 750 mg Documented By: NANCY Cyclobenzaprine HCl (Cyclobenzaprine Hcl 10 Mg Tablet) 10 mg PO BEDTIME [facility] Last Admin: 02/03/22 20:58 Dose: 10 mg Documented By: TYRELL Diltiazem HCl (Diltiazem Hcl Cd 120 Mg Cap.Er.Deg) 120 mg PO DAILY [facility]; Protocol Last Admin: 02/04/22 07:35 Dose: 120 mg Documented By: RYAN Docusate Sodium (Docusate Sodium 100 Mg Capsule) 100 mg PO BID [facility] Last Admin: 02/04/22 07:35 Dose: 100 mg Documented By: RYAN Fluoxetine HCl (Fluoxetine Hcl 20 Mg Capsule) 40 mg PO DAILY [facility] Last Admin: 02/04/22 07:30 Dose: 40 mg Documented By: RYAN Gabapentin (Gabapentin 100 Mg Capsule) 100 mg PO BID [facility] Last Admin: 02/04/22 07:35 Dose: 100 mg Documented By: RYAN Ibuprofen (Ibuprofen 200 Mg Tablet) 200 mg PO BIDWM [facility] Last Admin: 02/04/22 07:30 Dose: 200 mg Documented By: RYAN Lactulose (Lactulose 20 Gm/30 Ml Solution) 20 gm PO DAILY [facility] Last Admin: 02/04/22 07:35 Dose: 20 gm Documented By: RYAN Levothyroxine Sodium (Levothyroxine Sodium 112 Mcg Tablet) 112 mcg PO 0600 [facility] Last Admin: 02/04/22 04:57 Dose: 112 mcg Documented By: TYRELL Lidocaine (Lidocaine 4 % Patch Adh..Patch) 1 patch TRANSDERMA DAILY [facility]; Protocol Last Admin: 02/04/22 07:35 Dose: 1 patch Documented By: RYAN Omeprazole (Omeprazole 40 Mg Capsule.Dr) 40 mg PO DAILY@0630 [facility] Last Admin: 02/04/22 04:57 Dose: 40 mg Documented By: TYRELL Ondansetron HCl (Ondansetron Hcl 4 Mg/2 Ml Vial) 4 mg IVPUSH Q6H PRN PRN Reason: nausea Oxycodone HCl (Oxycodone Hcl Immed Release 5 Mg Tablet) 5 mg PO Q6H PRN PRN Reason: Pain, Severe (Pain Scale 7-10) Quetiapine Fumarate (Quetiapine Fumarate 300 Mg Tablet) 300 mg PO BEDTIME [facility] Last Admin: 02/03/22 20:58 Dose: 300 mg Documented By: TYRELL Senna (Sennosides 8.6 Mg Tablet) 17.2 mg PO BEDTIME PRN PRN Reason: Constipation Senna (Sennosides 8.6 Mg Tablet) 8.6 mg PO BEDTIME [facility] Last Admin: 02/03/22 20:58 Dose: 8.6 mg Documented By: TYRELL Sodium Chloride (0.9 % Sodium Chloride Flush 3 Ml Syringe) 3 ml IVFLUSH QSHIFT [facility] Last Admin: 02/04/22 07:29 Dose: 3 ml Documented By: RYAN Labs CBC & Chem 7: 02/01/22 06:12 02/01/22 06:12 Assessment and Plan (1) Bilateral sacroiliitis: Status: Acute (2) Back pain: Status: Acute (3) Atrial fibrillation, new onset: Status: Acute Plan 81-year-old female with past medical history of hypothyroid, chronic alcohol dependence, hypertension, anxiety/depression, status post pacemaker, chronic back pain, osteoporosis, anemia of chronic disease presented with back pain, found to have new onset atrial fibrillation and urinary tract infection Mechanical fall with T12, L3 age indeterminate fractures Still having pain but overall better controlled Bone scan done, IR did not find any new fracture, study showed sacroiliitis as likely cause of the pain No need for kyphoplasty per IR Continue small dose gabapentin, ibuprofen and Tylenol around the clock oxycodone b.i.d. for now To do physical therapy with plan for SNF placement paroxysmal Atrial fibrillation Appears to be new onset Continue Cardizem Change Lovenox to Eliquis orthostatic hypotension improved Urinary tract infection urine grew pansensitive ecoli completed 5 days Rocephin Anemia of chronic disease Stable, b12 folate normal, iron consistent with inflammatory anemia transfused 1 unit 01/28/22, hgb improved appropriately Hypothyroid Elevated TSH, increased Synthroid to 112 mcg from 88 Follow-up TSH in 1 month Hypertension had low bp, orthostatic, holding roddy i Chronic back pain Flexeril Mood disorder Prozac, Seroquel DVT prophylaxis Eliquis reason for continued hospitalization: pending safe discharge plan Quality Stroke Does the patient have a stroke diagnosis?: No VTE Prior VTE?: No VTE Risk Level:: Medical - moderate - high VTE Device Contraindication: Treatment Not Indicated VTE Drug Contraindication: N/A - Med Ordered
[2022-02-04 16:00] VITALS: BP 105/55; PULSE 78; RESP 18; TEMP 37.1; O2SAT 98
[2022-02-04] MEDS: Acetaminophen 325 MG TABLET 975 MG PO (17:19)
[2022-02-04] MEDS: QUEtiapine Fumarate 300 MG TABLET PO (20:16)
[2022-02-04] MEDS: Cyclobenzaprine HCl 10 MG TABLET PO (20:16)
[2022-02-04] MEDS: Sennosides 8.6 MG TABLET PO (20:17)
[2022-02-05] VITALS: BP 132/67; PULSE 78; RESP 15; TEMP 36.6; O2SAT 94
[2022-02-05] MEDS: Levothyroxine Sodium 112 MCG TABLET PO (05:37)
[2022-02-05] MEDS: Omeprazole 40 MG CAPSULE.DR PO (05:37)
[2022-02-05 08:00] VITALS: BP 117/77; PULSE 88; RESP 20; TEMP 36.6; O2SAT 97
[2022-02-05] MEDS: 0.9 % Sodium Chloride Flush 3 ML SYRINGE IVFLUSH ×3 (09:07→20:55)
[2022-02-05] MEDS: Acetaminophen 325 MG TABLET 975 MG PO ×2 (09:07→15:57)
[2022-02-05] MEDS: dilTIAZem HCL CD 120 MG CAP.ER.DEG PO (09:08)
[2022-02-05] MEDS: FLUoxetine HCl 20 MG CAPSULE 40 MG PO (09:08)
[2022-02-05] MEDS: Lactulose 20 GM/30 ML SOLUTION PO (09:08)
[2022-02-05] MEDS: Docusate Sodium 100 MG CAPSULE PO ×2 (09:08→20:55)
[2022-02-05] MEDS: Apixaban 5 MG TABLET PO ×2 (09:08→20:55)
[2022-02-05] MEDS: Gabapentin 100 MG CAPSULE PO ×2 (09:08→20:56)
[2022-02-05] MEDS: Ibuprofen 200 MG TABLET PO ×2 (09:09→15:57)
[2022-02-05] MEDS: oxyCODONE HCl Immed Release 5 MG TABLET PO ×2 (09:09→20:57)
[2022-02-05] MEDS: Lidocaine 4 % Patch ADH..PATCH 1 PATCH TRANSDERMA (09:09)
[2022-02-05 11:31] VITALS: BP 129/74; PULSE 87; RESP 20; TEMP 36; O2SAT 95
--- NOTE | 2022-02-05 14:02 | HO.PM.IMPN ---
Subjective Subjective Date of Service: 02/05/22 Interval History: The patient was seen and evaluated this morning Laying in bed, right shoulder pain and decreased range of motion improved back pain overall No reported other overnight events. Systemic review: No fever, chills or weakness No chest pain, palpitation No shortness of breath or coughing No abdominal pain, nausea or vomiting No urinary symptoms No any rash or wounds Right shoulder pain and back pain improved Physical Exam Vital Signs: Vital Signs: Last Vital Signs Temp 96.8 F 02/05/22 11:31 Pulse 87 02/05/22 11:31 Resp 20 02/05/22 11:31 BP 129/74 02/05/22 11:31 Pulse Ox 95 02/05/22 11:31 O2 Del Method 02/05/22 11:31 FiO2 98 01/31/22 20:11 BMI result Body Mass Index 24.7 Const: Other: Constitutional : Alert, oriented, not in distress Neck : Normal inspection, Supple Cardiovascular : RRR, no JVP, no lower extremity edema Respiratory : fair bilateral air entry, no crackles, wheezes or rhonchi Gastrointestinal: soft, lax, Normal bowel sounds, Non tender Skin : Warm, Dry Musculoskeletal: back pain with no tenderness, right shoulder decrease range of motion and tenderness on palpation Neurological : Alert & oriented x3, No focal deficit Objective Data Active Medications Acetaminophen (Acetaminophen 325 Mg Tablet) 975 mg PO QSHIFT [facility] Last Admin: 02/05/22 09:07 Dose: 975 mg Documented By: RYAN Apixaban (Apixaban 5 Mg Tablet) 5 mg PO BID [facility] Last Admin: 02/05/22 09:08 Dose: 5 mg Documented By: RYAN Calcium Carbonate (Calcium Carbonate 750 Mg Tab.Chew) 750 mg PO Q4H PRN PRN Reason: heartburn Last Admin: 01/26/22 20:54 Dose: 750 mg Documented By: NANCY Cyclobenzaprine HCl (Cyclobenzaprine Hcl 10 Mg Tablet) 10 mg PO BEDTIME [facility] Last Admin: 02/04/22 20:16 Dose: 10 mg Documented By: KIRSTIN Diltiazem HCl (Diltiazem Hcl Cd 120 Mg Cap.Er.Deg) 120 mg PO DAILY [facility]; Protocol Last Admin: 02/05/22 09:08 Dose: 120 mg Documented By: RYAN Docusate Sodium (Docusate Sodium 100 Mg Capsule) 100 mg PO BID [facility] Last Admin: 02/05/22 09:08 Dose: 100 mg Documented By: RYAN Fluoxetine HCl (Fluoxetine Hcl 20 Mg Capsule) 40 mg PO DAILY [facility] Last Admin: 02/05/22 09:08 Dose: 40 mg Documented By: RYAN Gabapentin (Gabapentin 100 Mg Capsule) 100 mg PO BID [facility] Last Admin: 02/05/22 09:08 Dose: 100 mg Documented By: RYAN Ibuprofen (Ibuprofen 200 Mg Tablet) 200 mg PO BIDWM [facility] Last Admin: 02/05/22 09:09 Dose: 200 mg Documented By: RYAN Lactulose (Lactulose 20 Gm/30 Ml Solution) 20 gm PO DAILY [facility] Last Admin: 02/05/22 09:08 Dose: 20 gm Documented By: RYAN Levothyroxine Sodium (Levothyroxine Sodium 112 Mcg Tablet) 112 mcg PO 0600 [facility] Last Admin: 02/05/22 05:37 Dose: 112 mcg Documented By: KIRSTIN Lidocaine (Lidocaine 4 % Patch Adh..Patch) 1 patch TRANSDERMA DAILY [facility]; Protocol Last Admin: 02/05/22 09:09 Dose: 1 patch Documented By: RYAN Lidocaine (Lidocaine 4 % Patch Adh..Patch) 1 patch TRANSDERMA DAILY [facility]; Protocol Last Admin: 02/05/22 10:33 Dose: Not Given Documented By: RYAN Non-Admin Reason: Previously Administered Omeprazole (Omeprazole 40 Mg Capsule.) 40 mg PO DAILY@0630 [facility] Last Admin: 02/05/22 05:37 Dose: 40 mg Documented By: KIRSTIN Ondansetron HCl (Ondansetron Hcl 4 Mg/2 Ml Vial) 4 mg IVPUSH Q6H PRN PRN Reason: nausea Oxycodone HCl (Oxycodone Hcl Immed Release 5 Mg Tablet) 5 mg PO Q6H PRN PRN Reason: Pain, Severe (Pain Scale 7-10) Last Admin: 02/05/22 09:09 Dose: 5 mg Documented By: RYAN Quetiapine Fumarate (Quetiapine Fumarate 300 Mg Tablet) 300 mg PO BEDTIME [facility] Last Admin: 02/04/22 20:16 Dose: 300 mg Documented By: KIRSTIN Senna (Sennosides 8.6 Mg Tablet) 17.2 mg PO BEDTIME PRN PRN Reason: Constipation Senna (Sennosides 8.6 Mg Tablet) 8.6 mg PO BEDTIME [facility] Last Admin: 02/04/22 20:17 Dose: 8.6 mg Documented By: KIRSTIN Sodium Chloride (0.9 % Sodium Chloride Flush 3 Ml Syringe) 3 ml IVFLUSH QSHIFT [facility] Last Admin: 02/05/22 09:07 Dose: 3 ml Documented By: RYAN Labs CBC & Chem 7: 02/01/22 06:12 02/01/22 06:12 Assessment and Plan (1) Bilateral sacroiliitis: Status: Acute (2) Back pain: Status: Acute (3) Fall: Status: Acute Plan 81-year-old female with past medical history of hypothyroid, chronic alcohol dependence, hypertension, anxiety/depression, status post pacemaker, chronic back pain, osteoporosis, anemia of chronic disease presented with back pain, found to have new onset atrial fibrillation and urinary tract infection Mechanical fall with back pain Still having pain but overall better controlled Likely from sacroiliitis rather than fractures Bone scan done, IR did not find any new fracture, study showed sacroiliitis as likely cause of the pain No need for kyphoplasty per IR Continue small dose gabapentin, ibuprofen and Tylenol around the clock oxycodone as needed To do physical therapy with plan for SNF placement Right shoulder pain X ray showing no evidence of fracture but possible tendinitis Local measures, lidocaine patch, passive exercise paroxysmal Atrial fibrillation Appears to be new onset Continue Cardizem Continue Eliquis orthostatic hypotension improved Urinary tract infection urine grew pansensitive ecoli completed 5 days Rocephin Anemia of chronic disease Stable, b12 folate normal, iron consistent with inflammatory anemia transfused 1 unit 01/28/22, hgb improved appropriately Hypothyroid Elevated TSH, increased Synthroid to 112 mcg from 88 Follow-up TSH in 1 month Hypertension had low bp, orthostatic, holding roddy i Chronic back pain Flexeril Mood disorder Prozac, Seroquel DVT prophylaxis Eliquis reason for continued hospitalization: pending safe discharge plan Quality Stroke Does the patient have a stroke diagnosis?: No VTE Prior VTE?: No VTE Risk Level:: Medical - moderate - high VTE Device Contraindication: Treatment Not Indicated VTE Drug Contraindication: N/A - Med Ordered
[2022-02-05 15:17] VITALS: BP 129/84; PULSE 115; RESP 17; TEMP 37; O2SAT 98
[2022-02-05] MEDS: QUEtiapine Fumarate 300 MG TABLET PO (20:54)
[2022-02-05] MEDS: Cyclobenzaprine HCl 10 MG TABLET PO (20:54)
[2022-02-05] MEDS: Sennosides 8.6 MG TABLET PO (20:55)
[2022-02-05 23:31] VITALS: BP 129/82; PULSE 89; RESP 20; TEMP 36.7; O2SAT 96
[2022-02-06] MEDS: Acetaminophen 325 MG TABLET 975 MG PO ×4 (02:13→23:06)
[2022-02-06] MEDS: oxyCODONE HCl Immed Release 5 MG TABLET PO (04:43)
[2022-02-06] MEDS: Levothyroxine Sodium 112 MCG TABLET PO (05:35)
[2022-02-06] MEDS: Omeprazole 40 MG CAPSULE.DR PO (05:35)
[2022-02-06 07:45] VITALS: BP 119/82; PULSE 87; RESP 12; TEMP 36.4; O2SAT 95
[2022-02-06] MEDS: Lactulose 20 GM/30 ML SOLUTION PO (09:46)
[2022-02-06] MEDS: dilTIAZem HCL CD 120 MG CAP.ER.DEG PO (09:46)
[2022-02-06] MEDS: Gabapentin 100 MG CAPSULE PO ×2 (09:46→20:50)
[2022-02-06] MEDS: Ibuprofen 200 MG TABLET PO ×2 (09:46→15:57)
[2022-02-06] MEDS: Lidocaine 4 % Patch ADH..PATCH 1 PATCH TRANSDERMA ×2 (09:47→09:54)
[2022-02-06] MEDS: FLUoxetine HCl 20 MG CAPSULE 40 MG PO (09:47)
[2022-02-06] MEDS: Apixaban 5 MG TABLET PO ×2 (09:47→20:50)
[2022-02-06] MEDS: Docusate Sodium 100 MG CAPSULE PO ×2 (09:48→20:50)
[2022-02-06] MEDS: 0.9 % Sodium Chloride Flush 3 ML SYRINGE IVFLUSH ×3 (09:54→20:51)
--- NOTE | 2022-02-06 11:16 | HO.PM.IMPN ---
Subjective Subjective Date of Service: 02/06/22 Interval History: The patient was seen and evaluated this morning Laying in bed, complaining of right shoulder pain and decreased range of motion improved back pain overall No reported other overnight events. Systemic review: No fever, chills or weakness No chest pain, palpitation No shortness of breath or coughing No abdominal pain, nausea or vomiting No urinary symptoms No any rash or wounds Right shoulder pain and back pain Physical Exam Vital Signs: Vital Signs: Last Vital Signs Temp 97.5 F 02/06/22 07:45 Pulse 87 02/06/22 07:45 Resp 12 02/06/22 07:45 BP 119/82 02/06/22 07:45 Pulse Ox 95 02/06/22 07:45 O2 Del Method 02/06/22 07:45 FiO2 98 01/31/22 20:11 BMI result Body Mass Index 24.7 Const: Other: Constitutional : Alert, oriented, not in distress Neck : Normal inspection, Supple Cardiovascular : RRR, no JVP, no lower extremity edema Respiratory : fair bilateral air entry, no crackles, wheezes or rhonchi Gastrointestinal: soft, lax, Normal bowel sounds, Non tender Skin : Warm, Dry Musculoskeletal: back pain with no tenderness, right shoulder decrease range of motion and tenderness on palpation Neurological : Alert & oriented x3, No focal deficit Objective Data Active Medications Acetaminophen (Acetaminophen 325 Mg Tablet) 975 mg PO QSHIFT [facility] Last Admin: 02/06/22 09:47 Dose: 975 mg Documented By: NESTOR Apixaban (Apixaban 5 Mg Tablet) 5 mg PO BID [facility] Last Admin: 02/06/22 09:47 Dose: 5 mg Documented By: NESTOR Calcium Carbonate (Calcium Carbonate 750 Mg Tab.Chew) 750 mg PO Q4H PRN PRN Reason: heartburn Last Admin: 01/26/22 20:54 Dose: 750 mg Documented By: NANCY Cyclobenzaprine HCl (Cyclobenzaprine Hcl 10 Mg Tablet) 10 mg PO BEDTIME [facility] Last Admin: 02/05/22 20:54 Dose: 10 mg Documented By: CHUCK Diltiazem HCl (Diltiazem Hcl Cd 120 Mg Cap.Er.Deg) 120 mg PO DAILY [facility]; Protocol Last Admin: 02/06/22 09:46 Dose: 120 mg Documented By: NETSOR Docusate Sodium (Docusate Sodium 100 Mg Capsule) 100 mg PO BID [facility] Last Admin: 02/06/22 09:48 Dose: 100 mg Documented By: NESTOR Fluoxetine HCl (Fluoxetine Hcl 20 Mg Capsule) 40 mg PO DAILY [facility] Last Admin: 02/06/22 09:47 Dose: 40 mg Documented By: NESTOR Gabapentin (Gabapentin 100 Mg Capsule) 100 mg PO BID [facility] Last Admin: 02/06/22 09:46 Dose: 100 mg Documented By: NESTOR Ibuprofen (Ibuprofen 200 Mg Tablet) 200 mg PO BIDWM [facility] Last Admin: 02/06/22 09:46 Dose: 200 mg Documented By: NESTOR Lactulose (Lactulose 20 Gm/30 Ml Solution) 20 gm PO DAILY [facility] Last Admin: 02/06/22 09:46 Dose: 20 gm Documented By: NESTOR Levothyroxine Sodium (Levothyroxine Sodium 112 Mcg Tablet) 112 mcg PO 0600 [facility] Last Admin: 02/06/22 05:35 Dose: 112 mcg Documented By: KARON Lidocaine (Lidocaine 4 % Patch Adh..Patch) 1 patch TRANSDERMA DAILY [facility]; Protocol Last Admin: 02/06/22 09:47 Dose: 1 patch Documented By: NESTOR Lidocaine (Lidocaine 4 % Patch Adh..Patch) 1 patch TRANSDERMA DAILY [facility]; Protocol Last Admin: 02/06/22 09:54 Dose: 1 patch Documented By: NESTOR Omeprazole (Omeprazole 40 Mg Capsule.Dr) 40 mg PO DAILY@0630 [facility] Last Admin: 02/06/22 05:35 Dose: 40 mg Documented By: KARON Ondansetron HCl (Ondansetron Hcl 4 Mg/2 Ml Vial) 4 mg IVPUSH Q6H PRN PRN Reason: nausea Oxycodone HCl (Oxycodone Hcl Immed Release 5 Mg Tablet) 5 mg PO Q6H PRN PRN Reason: Pain, Severe (Pain Scale 7-10) Last Admin: 02/06/22 04:43 Dose: 5 mg Documented By: KARON Quetiapine Fumarate (Quetiapine Fumarate 300 Mg Tablet) 300 mg PO BEDTIME [facility] Last Admin: 02/05/22 20:54 Dose: 300 mg Documented By: HO.MORRIA Senna (Sennosides 8.6 Mg Tablet) 17.2 mg PO BEDTIME PRN PRN Reason: Constipation Senna (Sennosides 8.6 Mg Tablet) 8.6 mg PO BEDTIME [facility] Last Admin: 02/05/22 20:55 Dose: 8.6 mg Documented By: CHUCK Sodium Chloride (0.9 % Sodium Chloride Flush 3 Ml Syringe) 3 ml IVFLUSH QSHIFT [facility] Last Admin: 02/06/22 09:54 Dose: 3 ml Documented By: FOGARTB Labs CBC & Chem 7: 02/01/22 06:12 02/01/22 06:12 Assessment and Plan (1) Fall: Status: Acute (2) Bilateral sacroiliitis: Status: Acute Plan 81-year-old female with past medical history of hypothyroid, chronic alcohol dependence, hypertension, anxiety/depression, status post pacemaker, chronic back pain, osteoporosis, anemia of chronic disease presented with back pain, found to have new onset atrial fibrillation and urinary tract infection Mechanical fall with back pain overall better controlled Back pain Likely from sacroiliitis rather than compression fractures Bone scan done, IR did not find any new fracture, study showed sacroiliitis as likely cause of the pain No need for kyphoplasty per IR Continue small dose gabapentin, ibuprofen and Tylenol around the clock oxycodone as needed PT recommended SNF placement Right shoulder pain X ray showing no evidence of fracture but possible tendinitis Local measures, lidocaine patch, passive exercise OT evaluation paroxysmal Atrial fibrillation Appears to be new onset Continue Cardizem Continue Eliquis orthostatic hypotension improved Urinary tract infection urine grew pansensitive ecoli completed 5 days Rocephin Anemia of chronic disease Stable, b12 folate normal, iron consistent with inflammatory anemia transfused 1 unit 01/28/22, hgb improved appropriately Hypothyroid Elevated TSH, increased Synthroid to 112 mcg from 88 Follow-up TSH in 1 month Hypertension had low bp, orthostatic, holding roddy i Chronic back pain Flexeril Mood disorder Prozac, Seroquel DVT prophylaxis Eliquis reason for continued hospitalization: pending safe discharge plan Quality Stroke Does the patient have a stroke diagnosis?: No VTE Prior VTE?: No VTE Risk Level:: Medical - moderate - high VTE Device Contraindication: Treatment Not Indicated VTE Drug Contraindication: N/A - Med Ordered
[2022-02-06 16:00] VITALS: BP 123/70; PULSE 85; RESP 16; TEMP 35.7; O2SAT 95
[2022-02-06] MEDS: QUEtiapine Fumarate 300 MG TABLET PO (20:50)
[2022-02-06] MEDS: Sennosides 8.6 MG TABLET PO (20:50)
[2022-02-06] MEDS: Cyclobenzaprine HCl 10 MG TABLET PO (20:50)
[2022-02-06 23:17] VITALS: BP 137/67; PULSE 85; RESP 20; TEMP 36.6; O2SAT 97
[2022-02-07 02:56] VITALS: BP 111/61; PULSE 85; RESP 16; TEMP 36.7; O2SAT 96
[2022-02-07] MEDS: Levothyroxine Sodium 112 MCG TABLET PO (05:07)
[2022-02-07] MEDS: oxyCODONE HCl Immed Release 5 MG TABLET PO (05:07)
[2022-02-07] MEDS: Omeprazole 40 MG CAPSULE.DR PO (05:07)
[2022-02-07 07:54] VITALS: BP 121/57; PULSE 85; RESP 20; TEMP 36.7; O2SAT 95
[2022-02-07] MEDS: Docusate Sodium 100 MG CAPSULE PO (08:43)
[2022-02-07] MEDS: Gabapentin 100 MG CAPSULE PO (08:43)
[2022-02-07] MEDS: FLUoxetine HCl 20 MG CAPSULE 40 MG PO (08:44)
[2022-02-07] MEDS: Apixaban 5 MG TABLET PO (08:44)
[2022-02-07] MEDS: Acetaminophen 325 MG TABLET 975 MG PO ×2 (08:44→16:18)
[2022-02-07] MEDS: dilTIAZem HCL CD 120 MG CAP.ER.DEG PO (08:45)
[2022-02-07] MEDS: Ibuprofen 200 MG TABLET PO ×2 (08:45→16:17)
[2022-02-07] MEDS: 0.9 % Sodium Chloride Flush 3 ML SYRINGE IVFLUSH ×2 (08:46→16:19)
[2022-02-07] MEDS: Lactulose 20 GM/30 ML SOLUTION PO (08:46)
[2022-02-07] MEDS: Lidocaine 4 % Patch ADH..PATCH 1 PATCH TRANSDERMA ×2 (08:47)
[2022-02-07 10:32] VITALS: BP 121/57; PULSE 85; O2SAT 95
--- NOTE | 2022-02-07 11:06 | HO.PM.IMPN ---
Subjective Subjective Date of Service: 02/07/22 Interval History: cc: fall interval history:back pain, right arm pain Cardiovascular Cardiovascular: Reports no additional cardiovascular complaints Respiratory Respiratory: Reports no additional respiratory complaints Physical Exam Vital Signs: Vital Signs: Last Vital Signs Temp 98.0 F 02/07/22 07:54 Pulse 85 02/07/22 10:32 Resp 20 02/07/22 07:54 BP 121/57 L 02/07/22 10:32 Pulse Ox 95 02/07/22 10:32 O2 Del Method 02/07/22 07:54 FiO2 98 01/31/22 20:11 BMI result Body Mass Index 24.7 Const: Other: Constitutional : Alert, oriented, not in distress Neck : Normal inspection, Supple Cardiovascular : RRR, no JVP, no lower extremity edema Respiratory : fair bilateral air entry, no crackles, wheezes or rhonchi Gastrointestinal: soft, lax, Normal bowel sounds, Non tender Skin : Warm, Dry Musculoskeletal: back pain with no tenderness, right shoulder decrease range of motion and tenderness on palpation Neurological : Alert & oriented x3, No focal deficit Objective Data Active Medications Acetaminophen (Acetaminophen 325 Mg Tablet) 975 mg PO QSHIFT [facility] Last Admin: 02/07/22 08:44 Dose: 975 mg Documented By: JT Apixaban (Apixaban 5 Mg Tablet) 5 mg PO BID [facility] Last Admin: 02/07/22 08:44 Dose: 5 mg Documented By: JT Calcium Carbonate (Calcium Carbonate 750 Mg Tab.Chew) 750 mg PO Q4H PRN PRN Reason: heartburn Last Admin: 01/26/22 20:54 Dose: 750 mg Documented By: NANCY Cyclobenzaprine HCl (Cyclobenzaprine Hcl 10 Mg Tablet) 10 mg PO BEDTIME [facility] Last Admin: 02/06/22 20:50 Dose: 10 mg Documented By: NANCY Diltiazem HCl (Diltiazem Hcl Cd 120 Mg Cap.Er.Deg) 120 mg PO DAILY [facility]; Protocol Last Admin: 02/07/22 08:45 Dose: 120 mg Documented By: JT Docusate Sodium (Docusate Sodium 100 Mg Capsule) 100 mg PO BID [facility] Last Admin: 02/07/22 08:43 Dose: 100 mg Documented By: JT Fluoxetine HCl (Fluoxetine Hcl 20 Mg Capsule) 40 mg PO DAILY [facility] Last Admin: 02/07/22 08:44 Dose: 40 mg Documented By: JT Gabapentin (Gabapentin 100 Mg Capsule) 100 mg PO BID [facility] Last Admin: 02/07/22 08:43 Dose: 100 mg Documented By: JT Ibuprofen (Ibuprofen 200 Mg Tablet) 200 mg PO BIDWM [facility] Last Admin: 02/07/22 08:45 Dose: 200 mg Documented By: JT Lactulose (Lactulose 20 Gm/30 Ml Solution) 20 gm PO DAILY [facility] Last Admin: 02/07/22 08:46 Dose: 20 gm Documented By: JT Levothyroxine Sodium (Levothyroxine Sodium 112 Mcg Tablet) 112 mcg PO 0600 [facility] Last Admin: 02/07/22 05:07 Dose: 112 mcg Documented By: HAI Lidocaine (Lidocaine 4 % Patch Adh..Patch) 1 patch TRANSDERMA DAILY [facility]; Protocol Last Admin: 02/07/22 08:47 Dose: 1 patch Documented By: JT Lidocaine (Lidocaine 4 % Patch Adh..Patch) 1 patch TRANSDERMA DAILY [facility]; Protocol Last Admin: 02/07/22 08:47 Dose: 1 patch Documented By: JT Omeprazole (Omeprazole 40 Mg Capsule.Dr) 40 mg PO DAILY@0630 [facility] Last Admin: 02/07/22 05:07 Dose: 40 mg Documented By: HAI Ondansetron HCl (Ondansetron Hcl 4 Mg/2 Ml Vial) 4 mg IVPUSH Q6H PRN PRN Reason: nausea Oxycodone HCl (Oxycodone Hcl Immed Release 5 Mg Tablet) 5 mg PO Q6H PRN PRN Reason: Pain, Severe (Pain Scale 7-10) Last Admin: 02/07/22 05:07 Dose: 5 mg Documented By: HAI Quetiapine Fumarate (Quetiapine Fumarate 300 Mg Tablet) 300 mg PO BEDTIME [facility] Last Admin: 02/06/22 20:50 Dose: 300 mg Documented By: JAMES-KAPIL Senna (Sennosides 8.6 Mg Tablet) 17.2 mg PO BEDTIME PRN PRN Reason: Constipation Senna (Sennosides 8.6 Mg Tablet) 8.6 mg PO BEDTIME [facility] Last Admin: 02/06/22 20:50 Dose: 8.6 mg Documented By: NANCY Sodium Chloride (0.9 % Sodium Chloride Flush 3 Ml Syringe) 3 ml IVFLUSH QSHIFT [facility] Last Admin: 02/07/22 08:46 Dose: 3 ml Documented By: DEBORAOSOB Labs CBC & Chem 7: 02/01/22 06:12 02/01/22 06:12 Assessment and Plan (1) Fall: Status: Acute (2) Bilateral sacroiliitis: Status: Acute Plan 81-year-old female with past medical history of hypothyroid, chronic alcohol dependence, hypertension, anxiety/depression, status post pacemaker, chronic back pain, osteoporosis, anemia of chronic disease presented with back pain, found to have new onset atrial fibrillation and urinary tract infection Mechanical fall with back pain overall better controlled Back pain Likely from sacroiliitis rather than compression fractures Bone scan done, IR did not find any new fracture, study showed sacroiliitis as likely cause of the pain No need for kyphoplasty Continue small dose gabapentin, ibuprofen and Tylenol around the clock oxycodone as needed PT recommended SNF placement Right shoulder pain X ray showing no evidence of fracture but possible tendinitis Local measures, lidocaine patch, passive exercise OT evaluation paroxysmal Atrial fibrillation Appears to be new onset Continue Cardizem Continue Eliquis orthostatic hypotension improved Urinary tract infection urine grew pansensitive ecoli completed 5 days Rocephin Anemia of chronic disease Stable, b12 folate normal, iron consistent with inflammatory anemia transfused 1 unit 01/28/22, hgb improved appropriately Hypothyroid Elevated TSH, increased Synthroid to 112 mcg from 88 Follow-up TSH in 1 month Hypertension had low bp, orthostatic, holding roddy i Chronic back pain Flexeril Mood disorder Prozac, Seroquel DVT prophylaxis Eliquis reason for continued hospitalization: pending safe discharge plan Quality Stroke Does the patient have a stroke diagnosis?: No VTE Prior VTE?: No VTE Risk Level:: Medical - moderate - high VTE Device Contraindication: Treatment Not Indicated VTE Drug Contraindication: N/A - Med Ordered
[2022-02-07 11:25] VITALS: BP 104/57; PULSE 85; RESP 20; TEMP 36.6; O2SAT 97
--- NOTE | 2022-02-07 11:35 | P.DS_ITS ---
DS: Providers Provider Date of Service: 02/07/22 Date of admission: 01/24/22 23:18 Primary care physician: Krissy Villarreal MD Consults: 01/24/22 23:28 Consult to Cardiology Routine Consulting Provider: Alex Encarnacion Reason for consultation: new onset afib Consult to Hematology / Oncology Routine Consulting Provider: Carolina Boucher Reason for consultation: hx anemia; recs on anticoagulation ; pt need anticoagulation due to afib 02/01/22 14:04 Consult to Pain Management Routine Consulting Provider: Axel Ruiz Reason for consultation: compression fracture, pain, no kyphoplasty available. DS: Diagnosis Discharge Diagnosis (1) Fall: Status: Acute (2) Bilateral sacroiliitis: Status: Acute DS: Summary Hospital Course Hospital Course: from initial hpi: Chief Complaint: Back pain 81-year-old female with a past medical history of hypothyroidism, hypertension, anxiety, depression,?? CHF, history of cardiac pacemaker, chronic back pain, osteoporosis, anemia requiring blood transfusions presented to the hospital today with a chief complaint of back pain. Patient mentioned that last Saturday she came to the hospital for blood transfu sam, after that she went home, while on the way to home she felt hungry went to the [facility] and the of she came out she tripped over the sidewalk and fell on her back; she managed to get to the home and when she was climbing the stairs to the 2nd floor where she has lived she tripped again and fell over, slightly mobile stapes, landed on the floor.? Mentioned that she hit her head.? Followed by she continued to have severe low back pain.? But today she had increased back pain which she was not able to tolerate anymore hence decided to come to the hospital for further evaluation.? Patient denies any chest pain or palpitations Denies any GI symptoms.? Denies any fever chills cough.? Patient denies any numbness tingling or focal weakness.? Mentions that her activities of daily living are limited secondary to the back pain.? Patient denies any urinary retention or stool incontinence.? Review of all other systems is negative except mentioned above ER course: Per ER team patient noted to have low back pain, lumbar spine showed compression fractures-subacute; nonfocal examination; CT head and CT C-spine showed no acute findings; urinalysis abnormal consistent UTI-given ceftriaxone; EKG was abnormal consistent with new onset AFib with mild rapid ventricular response.? Given p.o. diltiazem.? Admitted to the hospital for further management. hospital course: Patient was admitted for mechanical fall with back pain. She was treated with pain medications and overall improved. Pain is likely due to sacroiliitis Ativan compression fraction. Bone scan was done which did not show any acute fracture therefore not a candidate for kyphoplasty. Patient will be discharged to [facility] facility for short-term rehab. patient also developed right shoulder pain with some mild swelling and echymosis, improved with pain medications, no fracture on imaging, will hold eliquis and would rechallenge once resolved. for her new onset paroxymal afib she started on cardizem and conv erted to NSR, she was also started on eliquis but did develop some right shoulder swelling and pain, eliquis will be held, should rechallenge once resolved. patient had ecoli UTI which was treated with 5 days rocephin. she had some orthostatic hypotension with supine hypertension, lisinopril was held and blood pressures imprved with hydration. she was noted to have anemia of chronic disease and required one unit prbc. for her mood disroder she was continued on prozac and seroquel. Time Spent with Patient Time attestation: Total time spent providing and/or coordinating discharge services: Discharge coordination time: Greater than 30 minutes Quality: Safe Use of Opioids Does Pt have an Active Cancer Diagnosis on the Problem List?: No Quality: Stroke Does the patient have a stroke diagnosis?: No Physical Exam Vital Signs: Vital Signs: Last Vital Signs Temp 97.9 F 02/07/22 11:25 Pulse 85 02/07/22 11:25 Resp 20 02/07/22 11:25 BP 104/57 L 02/07/22 11:25 Pulse Ox 97 02/07/22 11:25 O2 Del Method 02/07/22 11:25 FiO2 98 01/31/22 20:11 BMI result Body Mass Index 24.7 General: AO X 3, no acute distress Resp: CTA bilateral, no accessory muscles used CVS: S1,S2,RRR GI: soft, non tender, non distended Neuro: motor grossly intact, alert Psych: appropriate affect, appropriate insight right shoulder echymosis, mild edema, decreased ROM Discharge Plan Discharge Anticipated Discharge Date/Time: 02/07/22 11:32 Patient Disposition: Xfer SNF Discharge Diagnosis: afib Referrals: Krissy Villarreal MD [Primary Care Provider] - 1 Week Discharge Medications: New ibuprofen 200 mg Tablet 200 mg PO BIDWM Qty: 0 0RF diltiazem HCl [Cardizem CD] 120 mg Capsule,Extended Release 24hr 120 mg PO DAILY Qty: 0 0RF Protocol: Hold for SBP/HR < HOLD for SBP < : 90 HOLD for HR < : 60 gabapentin 100 mg Capsule 100 mg PO BID Qty: 0 0RF omeprazole 40 mg Capsule,Delayed Release(Dr/Ec) 40 mg PO DAILY@0630 Qty: 0 0RF oxycodone 5 mg Tablet 5 mg PO Q6H PRN (Reason: Pain, Severe (Pain Scale 7-10)) Qty: 0 0RF Rx Instructions: Partial Fill upon patient request. Continued fluoxetine 40 mg capsule 40 mg PO DAILY quetiapine 300 mg tablet 300 mg PO BEDTIME levothyroxine 88 mcg tablet 88 mcg PO DAILY acetaminophen [Tylenol Extra Strength] 500 mg Tablet 500 mg PO Q6H PRN (Reason: Breakthrough Pain, Moderate) Qty: 30 3RF alum-mag hydroxide-simeth [Maalox Advanced] 200-200-20 mg/5 mL Suspension 10 ml PO QID PRN (Reason: Digestion) Qty: 350 5RF Rx Instructions: administer between meals and at bedtime lisinopril 10 mg Tablet 10 mg PO DAILY cyclobenzaprine 10 mg Tablet 10 mg PO BEDTIME Qty: 30 4RF Discontinued ibuprofen 400 mg tablet 400 mg PO Q6H PRN (Reason: Pain) Discharge Orders: Discharge Order (Routine); Ordered 02/07/22 Ordered By: Josep Abel Diet: Advance to usual diet Activity on Discharge: As tolerated Stand Alone Forms: Patient Portal Discharge page Care Plan Goals: recovery Health Concerns: afib Plan of Treatment: meds as prescribed, would rechallenge with eliquis once echymoses and swelling on right shoulder resolved. PT Assessment: see above
[2022-02-07 14:20] LABS: COVID-19 Test Negative (Negative)
--- NOTE | 2022-02-07 14:29 | MHC.CM.PN ---
IMM 02/07/22 Female 81 DX Anemia Compression FX s/p fall discharged today to [facility] for STR. The patient won the appeal with [facility]. She will discharge today via [facility] preferred provider. Transport is scheduled for 4:30 PM roller picker. Patients dtr has been notified of discharge. All dc info has been sent to the facility. Covid test is pending; but the test result will be sent prior to transfer.
[2022-02-07 15:46] VITALS: BP 127/84; PULSE 88; RESP 18; TEMP 36.3; O2SAT 96
[2022-02-07 16:41] VITALS: BP 124/77; PULSE 86; RESP 18; TEMP 36.7; O2SAT 97
== END 2022-02-07 18:00 | disposition skilled nursing facility (03) | DRG 552 ==
LOC: HO.ED 17:33 → HO.EDOVER 23:21 → HO.IMC 01-25 18:45
PROVIDERS: Internal Medicine; Student in an Organized Health Care Education/Training Program; Admitting Provider Hospitalist; Emergency Provider Internal Medicine; PCP Internal Medicine; Visit Provider Internal Medicine
DX: M46.1 Sacroiliitis, not elsewhere classified (principal); N39.0 Urinary tract infection, site not specified; M48.56XA Collapsed vertebra, not elsewhere classified, lumbar region, initial encounter for fracture; M48.54XA Collapsed vertebra, not elsewhere classified, thoracic region, initial encounter for fracture; I48.0 Paroxysmal atrial fibrillation; F17.210 Nicotine dependence, cigarettes, uncomplicated; D63.8 Anemia in other chronic diseases classified elsewhere; F10.20 Alcohol dependence, uncomplicated; I95.1 Orthostatic hypotension; F39 Unspecified mood [affective] disorder; E03.9 Hypothyroidism, unspecified; B96.20 Unspecified Escherichia coli [E. coli] as the cause of diseases classified elsewhere; G89.29 Other chronic pain; Z71.6 Tobacco abuse counseling; Z95.0 Presence of cardiac pacemaker; Z20.822 Contact with and (suspected) exposure to COVID-19; Z79.01 Long term (current) use of anticoagulants; Z79.890 Hormone replacement therapy; Z79.899 Other long term (current) drug therapy
CPT/HCPCS: 36415; 70450; 72100; 72125; 72131; 73060; 76775; 78300; 80048; 80053; 81001; 82306; 82607; 82728; 82746; 83540; 83605; 83735; 84443; 84484; 85025; 85027; 85610; 86850; 86900; 86901; 86902; 86905; 86920; 86922; 87040; 87086; 87088; 87186; 87635; 93005; 93306; 96365; 96375; 97110; 97116; 97162; 97166; 97530; 99285; A9503; J0696; J1170; J1650; J2270; J2405; J3475; J8540; P9016; Q9957

== ENCOUNTER → 2022-07-20 13:37 | Outpatient (BNVA) | payer MEDICARE, SELFPAY | PROVIDERS: PCP Internal Medicine; Visit Provider Nurse Practitioner Family | DX: M51.36 Other intervertebral disc degeneration, lumbar region (principal); S22.080A Wedge compression fracture of T11-T12 vertebra, initial encounter for closed fracture; S32.010A Wedge compression fracture of first lumbar vertebra, initial encounter for closed fracture; M47.816 Spondylosis without myelopathy or radiculopathy, lumbar region; M46.1 Sacroiliitis, not elsewhere classified; Z91.81 History of falling | CPT/HCPCS: 99202 ==

== ENCOUNTER 2022-08-07 12:19 | Outpatient (REF) | payer MEDICARE, SELFPAY ==
[2022-08-07 12:39] LABS: MANUAL DIFF FLAG NO
[2022-08-07 13:14] LABS: Basophils Percent Auto 0.8 % (0-2); Eosinophils Absolute Auto 0.5 X10*3/uL (0.0-0.4); Eosinophils Percent Auto 10.5 % (0-4); Hematocrit 33.5 % (37.0-47.0); Hemoglobin 11.1 g/dl (12.0-16.0); Imm Gran Abs Auto 0.04 X10*3/uL (0.00-0.03); Imm Gran Pct Auto 0.8 % (0.0-0.4); Lymphocytes Absolute Auto 1.5 X10*3/uL (1.2-4.9); Lymphocytes Percent Auto 32.2 % (20-40); Mean Corpuscular HGB Conc 33.1 g/dl (31.0-35.0); Mean Corpuscular Hemoglobin 32.1 pg (27.0-33.0); Mean Corpuscular Volume 96.8 fL (80.0-98.0); Monocytes Absolute Auto 0.5 X10*3/uL (0.1-1.2); Monocytes Percent Auto 9.7 % (2-11); NRBC Pct Auto 0.6 /100WBC (0.0-0.2); Neutrophils Absolute Auto 2.2 x10*3/uL (2.0-8.3); Platelet Count 201 X10*3/uL (160-400); Red Blood Count 3.46 X10*6/uL (4.20-5.50); Red Cell Distribution Width 23.1 % (11.0-16.0); White Blood Count 4.8 X10*3/uL (4.8-10.8)
[2022-08-07 13:52] LABS: Alanine Aminotransferase 47 U/L (0-31); Albumin Level 4.1 g/dL (3.5-5.0); Alkaline Phosphatase 47 U/L (39-117); Anion Gap 14 (12-20); Aspartate Amino Transferase 24 U/L (5-31); Bilirubin Total 0.8 mg/dL (0.0-1.0); Blood Urea Nitrogen 14 mg/dL (9-16); Calcium 9.3 mg/dL (8.4-10.2); Carbon Dioxide 28 mmol/L (22-29); Chloride 101 mmol/L (96-108); Estimated Glomerular Filt Rate 38; Glucose Random 110 mg/dL (60-115); Potassium 4.5 mmol/L (3.3-5.1); Sodium 138 mmol/L (135-145); Total Protein 6.9 g/dL (6.5-8.0)
[2022-08-07 14:11] LABS: Folate 7.7 ng/mL (> or = 4.0); Thyroid Stimulating Hormone 80.24 uIU/mL (0.32-4.0); Vitamin B12 889 pg/mL (200-900)
== END 2022-08-07 12:20 | disposition home or self-care (01) ==
LOC: HO.LAB 12:19
PROVIDERS: PCP Internal Medicine; Visit Provider Internal Medicine
DX: D64.89 Other specified anemias (principal); F06.0 Psychotic disorder with hallucinations due to known physiological condition; M54.50 Low back pain, unspecified; R29.6 Repeated falls
CPT/HCPCS: 36415; 80053; 82607; 82746; 84443; 85025

== ENCOUNTER 2022-08-28 06:07 | Inpatient (IN) | payer MEDICARE, OTHER, SELFPAY ==
[2022-08-28] VITALS (52 sets, daily range): BP systolic 60–162; BP diastolic 30–102; PULSE 30–74; RESP 9–31; TEMP 33.3–35.1; O2SAT 93–100; BMI 23.2; BMI 27.6; BMI 28.0
--- NOTE | ~2022-08-28 | CT_ITS ---
EXAMINATION: CT HEAD WITHOUT CONTRAST CLINICAL INFORMATION: Status post fall, rule out intracranial abnormality. COMPARISON: 01/16/[address] scan. TECHNIQUE: Contiguous axial imaging was performed from the skull base to vertex without intravenous administration of contrast. Coronal and sagittal reformatted images were obtained. There is limitation to the study secondary to patient motion artifact. This CT examination was performed using dose optimization techniques as appropriate, variously including the following: *Automated exposure control *Adjustment of mA and/or kV according to patient size (this includes techniques or standardized protocols for targeted exams where dose is matched to indication/reason for exam; i.e. extremities or head) *Use of iterative reconstruction technique DLP: 737.68, mGy-cm FINDINGS: There is mild widening of the cortical sulci and associated ventriculomegaly. The lateral ventricles are symmetrical. The third and fourth ventricles are in their normal midline position. The basilar and prepontine cisterns are unremarkable. There is no acute intra or extracerebral abnormality. There is no mass effect or midline shift. Sections through the bony calvarium are unremarkable. The orbits are intact. The paranasal sinuses are clear. The mastoid air cells are clear. Mild mid nasal septal deviation, apex the left is seen. CT/CT head/brain wo IV con IMPRESSION: Limited study without overt acute intracranial abnormality. Symptoms persist or worsen, a short-term repeat PET/CT scan is recommended.
--- NOTE | ~2022-08-28 | XR_ITS ---
EXAMINATION: XR CHEST CLINICAL INFORMATION: Status post endotracheal tube placement. COMPARISON: 09/26/2017 chest radiographs. TECHNIQUE: Frontal view of the chest was obtained. FINDINGS: Support devices: Endotracheal tube is positioned approximately 2 cm proximal to barrie. Left-sided pacemaker device in position without abnormality. The lungs are clear. The heart and mediastinal structures are unremarkable. XR/XR chest 1V IMPRESSION: No acute cardiopulmonary process.
--- NOTE | ~2022-08-28 | CT_ITS ---
EXAMINATION: CT CERVICAL SPINE WITHOUT CONTRAST CLINICAL INFORMATION: Status post fall, neck pain. COMPARISON: Cervical spine CT scan dated 01/16/2022. TECHNIQUE: Multiple axial images of the cervical spine were obtained without the demonstration of intravenous contrast. Coronal and sagittal reformatted images were obtained. There is limitation the study secondary to motion artifact. This CT examination was performed using dose optimization techniques as appropriate, variously including the following: *Automated exposure control *Adjustment of mA and/or kV according to patient size (this includes techniques or standardized protocols for targeted exams where dose is matched to indication/reason for exam; i.e. extremities or head) *Use of iterative reconstruction technique DLP: 226.11, 340.47 mGy-cm FINDINGS: Mild to moderate multilevel degenerative disc disease is seen most pronounced at C4-5 and C5-6 with disc space narrowing, marginal osteophyte formation and mild neural foraminal narrowing. Minimal grade 1 anterolisthesis is seen at C2-3 and C3-4. Mild to moderate anterior osteophyte formation is seen at C6-7. Mild to moderate multilevel bilateral facet arthropathy is seen. The cervical soft tissues are unremarkable. There is no lymphadenopathy. The visualized lung apices are clear. CT/CT cervical spine wo IV con IMPRESSION: Significantly limited study. Overall appearance is similar to the most recent cervical spine CT scan. No definitive acute fractures seen however evaluation for acute nondisplaced fracture is limited. If pain persists or worsens, a repeat CT scan is recommended when possible.
--- NOTE | 2022-08-28 06:21 | ECG_ITS ---
Test Reason : fall Blood Pressure : / mmHG Vent. Rate : 060 BPM Atrial Rate : 000 BPM P-R Int : 000 ms QRS Dur : 014 ms QT Int : 240 ms P-R-T Axes : 000 000 -77 degrees QTc Int : 240 ms Intermiitent Venticuar pacing capture with wide QRS Abnormal ECG When compared with ECG of 24-JUL-2022 13:28, Pacer loss of capture, consider metabolic abnormality Referred By: Warner Velasquez Electronically Signed By:KAREN SCHNEIDER MD
--- NOTE | 2022-08-28 06:34 | ED.FALL ---
HPI - Fall General Stated Complaint: PTOH Fall Time Seen by Provider: 08/28/22 06:34 Source: EMS Mode of arrival: EMS Limitations: altered mental status History of Present Illness HPI Narrative: Patient is 81 years old with history of hypothyroidism hypertension anxiety depression CHF history of cardiac pacemaker chronic back pain osteoporosis anemia atrial fibrillation not on any anticoagulants lives alone with history of alcohol abuse came here patient was found next to the bed on the ground with empty bottles of alcohol family tried to reach earlier unable to reach her and called the EMS. On arrival patient rectal temperature was 92 degrees bradycardic in heart rate in 30s patient was pale per records patient is full code Related Data Home Medications Medication Instructions Recorded Confirmed fluoxetine 40 mg capsule 40 mg PO DAILY 06/21/20 04/12/22 levothyroxine 88 mcg tablet 88 mcg PO DAILY 06/21/20 04/12/22 quetiapine 300 mg tablet 300 mg PO BEDTIME 06/21/20 04/12/22 lisinopril 10 mg tablet 10 mg PO DAILY 12/18/21 04/12/22 fluticasone propionate 50 spray intranasal 07/20/22 mcg/actuation nasal spray,suspension Previous Rx's Medication Instructions Recorded acetaminophen 500 mg tablet 500 mg PO Q6H PRN Breakthrough 08/23/20 (Tylenol Extra Strength) Pain, Moderate #30 tabs aluminum-mag hydroxide-simethicone 10 ml PO QID PRN Digestion #350 mL 11/02/21 200 mg-200 mg-20 mg/5 mL oral susp (Maalox Advanced) cyclobenzaprine 10 mg tablet 10 mg PO BEDTIME #30 tabs 01/12/22 diltiazem HCl 120 mg 120 mg PO DAILY #0 caps 02/07/22 capsule,extended release 24 hr (Cardizem CD) gabapentin 100 mg capsule 100 mg PO BID #0 caps 02/07/22 ibuprofen 200 mg tablet 200 mg PO BIDWM #0 tabs 02/07/22 omeprazole 40 mg capsule,delayed 40 mg PO DAILY@0630 #0 caps 02/07/22 release oxycodone 5 mg tablet 5 mg PO Q6H PRN Pain, Severe (Pain 02/07/22 Scale 7-10) #0 tabs back brace #1 ea 07/23/22 Allergies Allergy/AdvReac Type Severity Reaction Status Date / Time No Known Allergies Allergy Verified 07/20/22 14:04 [No Known Allergies*] Review of Systems Review of Systems: Yes Unobtainable due to mental status PMFSH Past Medical History Medical History Anemia Colitis Compression fracture of thoracolumbar vertebra Congestive heart failure (CHF) GERD (gastroesophageal reflux disease) HTN (hypertension) Hx of cardiac pacemaker Hx of thyroid disease Surgical History H/O colonoscopy History of permanent cardiac pacemaker placement Hx of eye surgery Hx of hysterectomy Hx of knee surgery Hx of tracheostomy Hx of tubal ligation Family History Family History Brother Cancer Sister Sister Dementia Son Esophageal cancer Social History Social History Household Members: None Housing: House Are you a primary manager home healthcare to a significant other at home: No Do you presently have visiting nurse or other home services: No Alcohol intake: current Alcohol intake frequency: holidays/special occasions only Alcohol type: hard liquor Patient Tobacco Use Status: Current everyday Tobacco user Tobacco use type: Cigarette Cigarette Packs Per Day: 1.0 Cigarettes Per Day: 20.0 Years Smoked: 41 Second Hand Smoke Exposure: No service: No Current occupational status: retired Physical Exam Vital Signs: Appearance: Lethargic looks sick pale cold peripheries Eyes: PERRLA, No Nystagmus ENT: Pharynx normal. Oral Mucosa moist Neck: Normal inspection. Neck supple. CVS: Normal heart rate and rhythm. Pulses normal. Respiratory: No respiratory distress. Equal air entry bilateral, no wheezing/rales/rhonchi Abdomen: Soft and nontender. Bowel sounds are present, no mass palpable, no CVA tenderness Skin: Skin warm and dry. Normal skin color. Normal skin turgor. Extremities: No lower extremity edema. No calf tenderness Neuro: Lethargic moving her all 4 extremities Medications Administered Generic Name Dose Route Start Last Admin Trade Name Freq PRN Reason Stop Dose Admin Sodium Chloride 1,000 mls @ 999 mls/hr 08/28/22 06:20 08/28/22 06:51 Ns IV 08/28/22 07:20 999 mls/hr .Q1H1M ONE Administration Ceftriaxone Sodium 1 gm/ 50 mls @ 100 mls/hr 08/28/22 06:41 08/28/22 06:51 Sodium Chloride IV 08/28/22 07:10 100 mls/hr ONCE ONE Administration Discontinued Medications Generic Name Dose Route Start Last Admin Trade Name Flipq PRN Reason Stop Dose Admin Atropine Sulfate 1 mg 08/28/22 06:41 08/28/22 06:51 Atropine Sulfate 1 Mg/10 Ml Syringe IVPUSH 08/28/22 06:42 1 mg STAT STA Administration Medical Decision Making Medical Decision Making MDM Narrative: Patient was post fall with alcohol abuse bradycardic will give magnesium atropine head CT and labs workup patient signed out to Dr. Bhatt for further evaluation and disposition Lab Data 08/28/22 06:29 08/28/22 06:29 Labs: Lab Results 08/28/22 08/28/22 08/28/22 Range/Units 06:18 06:28 06:29 RBC 3.40 L (4.20-5.50) X10*6/uL Hgb 11.1 L (12.0-16.0) g/dl Hct 34.5 L (37.0-47.0) % MCV 101.5 H (80.0-98.0) fL MCH 32.6 (27.0-33.0) pg MCHC 32.2 (31.0-35.0) g/dl RDW 24.4 H (11.0-16.0) % MPV Not Reportable Immature Gran % (Auto) Cancelled Neut % (Auto) Cancelled Lymph % (Auto) Cancelled Logan % (Auto) Cancelled Eos % (Auto) Cancelled Baso % (Auto) Cancelled Lymph # (Auto) Cancelled Logan # (Auto) Cancelled Eos # (Auto) Cancelled Baso # (Auto) Cancelled Abs Immat Gran (auto) Cancelled Absolute Neuts (auto) Cancelled Absolute Nucleated RBC 1.170 H (0.0-0.012) X10*3/uL Nucleated RBC % (auto) 6.4 H (0.0-0.2) /100WBC PT (10.0-13.1) SEC INR (0.9-1.1) APTT (26.0-36.4) SEC VBG pH (7.32-7.43) VBG pCO2 mmHg VBG pO2 mmHg VBG HCO3 (22-26) mmol/L VBG O2 Saturation % VBG Base Excess mmol/L POC Glucose 89 (60-115) mg/dL B-Natriuretic Peptide (<100) pg/mL Ethyl Alcohol Cancelled 08/28/22 08/28/22 08/28/22 Range/Units 06:29 06:29 06:49 RBC (4.20-5.50) X10*6/uL Hgb (12.0-16.0) g/dl Hct (37.0-47.0) % MCV (80.0-98.0) fL MCH (27.0-33.0) pg MCHC (31.0-35.0) g/dl RDW (11.0-16.0) % MPV Immature Gran % (Auto) Neut % (Auto) Lymph % (Auto) Logan % (Auto) Eos % (Auto) Baso % (Auto) Lymph # (Auto) Logan # (Auto) Eos # (Auto) Baso # (Auto) Abs Immat Gran (auto) Absolute Neuts (auto) Absolute Nucleated RBC (0.0-0.012) X10*3/uL Nucleated RBC % (auto) (0.0-0.2) /100WBC PT 26.9 H (10.0-13.1) SEC INR 2.3 H (0.9-1.1) APTT 27.6 (26.0-36.4) SEC VBG pH 7.09 L* (7.32-7.43) VBG pCO2 24 mmHg VBG pO2 49 mmHg VBG HCO3 7 L (22-26) mmol/L VBG O2 Saturation 55.0 % VBG Base Excess -20.3 mmol/L POC Glucose (60-115) mg/dL B-Natriuretic Peptide 2806 H (<100) pg/mL Ethyl Alcohol Independent Interpretation I performed an independent interpretation of an: EKG Interpretation: Pacemaker rhythm with rate of [address]-T changes Discharge Plan Discharge Clinical Impression: Fall Patient Disposition: Still a Patient Prescriptions: No Action fluoxetine 40 mg capsule 40 mg PO DAILY quetiapine 300 mg tablet 300 mg PO BEDTIME levothyroxine 88 mcg tablet 88 mcg PO DAILY acetaminophen [Tylenol Extra Strength] 500 mg Tablet 500 mg PO Q6H PRN (Reason: Breakthrough Pain, Moderate) Qty: 30 3RF alum-mag hydroxide-simeth [Maalox Advanced] 200-200-20 mg/5 mL Suspension 10 ml PO QID PRN (Reason: Digestion) Qty: 350 5RF Rx Instructions: administer between meals and at bedtime lisinopril 10 mg Tablet 10 mg PO DAILY cyclobenzaprine 10 mg Tablet 10 mg PO BEDTIME Qty: 30 4RF ibuprofen 200 mg Tablet 200 mg PO BIDWM Qty: 0 0RF diltiazem HCl [Cardizem CD] 120 mg Capsule,Extended Release 24hr 120 mg PO DAILY Qty: 0 0RF Protocol: Hold for SBP/HR < HOLD for SBP < : 90 HOLD for HR < : 60 gabapentin 100 mg Capsule 100 mg PO BID Qty: 0 0RF omeprazole 40 mg Capsule,Delayed Release(Dr/Ec) 40 mg PO DAILY@0630 Qty: 0 0RF oxycodone 5 mg Tablet 5 mg PO Q6H PRN (Reason: Pain, Severe (Pain Scale 7-10)) Qty: 0 0RF Rx Instructions: Partial Fill upon patient request. fluticasone propionate 50 mcg/actuation spray,suspension intranasal (DME) back brace Misc See Rx Instructions .Route Qty: 1 0RF Rx Instructions: As directed
[2022-08-28 06:38] LABS: Hematocrit 34.5 % (37.0-47.0); Hemoglobin 11.1 g/dl (12.0-16.0); Mean Corpuscular HGB Conc 32.2 g/dl (31.0-35.0); Mean Corpuscular Hemoglobin 32.6 pg (27.0-33.0); Mean Corpuscular Volume 101.5 fL (80.0-98.0); PLT CLUMP 1; Red Cell Distribution Width 24.4 % (11.0-16.0)
[2022-08-28 06:40] LABS: NRBC Pct Auto 6.4 /100WBC (0.0-0.2); WBC ABN SCTR FOR CBC 1
[2022-08-28 06:44] LABS: INTERNATIONAL NORM RATIO 2.3 (0.9-1.1); Prothrombin Time 26.9 SEC (10.0-13.1)
[2022-08-28 06:47] LABS: Partial Thromboplastin Time 27.6 SEC (26.0-36.4)
[2022-08-28 06:49] LABS: Glucose, Whole Blood 89 mg/dL (60-115)
[2022-08-28] MEDS: 0.9 % Sodium Chloride 1,000 ML 999 ML IV (06:51)
[2022-08-28] MEDS: Atropine Sulfate 1 MG/10 ML SYRINGE IVPUSH ×2 (06:51→14:00)
[2022-08-28] MEDS: cefTRIAXone sodium 1 GM in 0.9 % Sodium Chloride 50 ML IV (06:51)
[2022-08-28 06:56] LABS: Venous Blood Gas Refer to POC result
[2022-08-28 06:57] LABS: VBG Base Excess -20.3 mmol/L; VBG HCO3 7 mmol/L (22-26); VBG pCO2 24 mmHg; VBG pH 7.09 (7.32-7.43); VBG pO2 49 mmHg
--- NOTE | 2022-08-28 07:00 | CA_ITS ---
Transthoracic Echocardiogram Patient (Last, First, Middle): Kelly Razo C Gender: Female Date of : 1940 Age: 81 Procedure Date: 08/28/2022 Procedure Type: Transthoracic Echocardiogram Location: ICU Height: 160.02 cm Weight: 72.58 kg BSA: 1.76 m2 Heart Rate: bpm BP: 135 / 102 mmHg Welfare Aide: Referring MD: Mehdi Weber MD Graphics Coordinator: Mehdi Weber MD Symptoms: shock Study Quality: Fair ECG Rhythm: Ventriculary paced rhythm Conclusions: - 1. LV cavity appears mildly dilated with significantly reduced LV ejection fraction at 10-15% with significantly reduced forward stroke volume 2. [id number]-[id number] RV systolic dysfunction 3. Moderately dilated left atrium 4. At least mild aortic stenosis and mild aortic regurgitation 5. [id number] mitral regurgitation 6. Small loculated pericardial effusion near the left ventricle Findings Left Ventricle Mildly increased left ventricular cavity size. There is normal left ventricular wall thickness. The left ventricular systolic function is severely decreased. The visually estimated ejection fraction is between 10 15%. There is severe global hypokinesis. Diastolic function is indeterminate on the basis of available data. There is no evidence of a thrombus in the left ventricle. there is suggestion of significantly reduced stroke volume based on LVOT VTI. Right Ventricle Mildly increased right ventricular cavity size. There is mild to moderately decreased right ventricular systolic function. There is a pacemaker wire seen in the right ventricle. Atria The left atrium is moderately dilated. There is no evidence of interatrial shunt. The right atrium is mildly dilated. A pacemaker wire is identified in the right atrium. Aortic Valve There is mild calcification of the aortic valve. There is mild thickening of the aortic valve. There is mild aortic valve stenosis. There is mild aortic valve regurgitation. Mitral Valve There is mild anterior and posterior mitral leaflet thickening. There is mild to moderate mitral valve regurgitation. There is no mitral valve stenosis. Pulmonic Valve The pulmonic valve was not well visualized. Tricuspid Valve Likely normal tricuspid valve structure and function. There is mild to moderate tricuspid valve regurgitation. Indeterminate right atrial pressure. Right atrial pressures are difficult to estimate as patient is on positive pressure ventilation. Great Vessels All visible segments of the aorta are normal in size. The pulmonary artery was not well visualized. Venous The inferior vena cava is mildly dilated and does not collapse with inspiration. Pericardium/Pleural There is a small loculated pericardial effusion overlying the left ventricle. Measurements 2D Linear Measurements IVSd: 1.02 0.6-0.9/0.6-1.0 cm LVIDd: 5.26 3.9-5.3/4.2-5.9 cm LVIDd Index: 2.99 2.4-3.2/2.2-3.1 cm/m2 LVIDs: 4.98 2.0-3.6 cm LVPWd: 0.87 0.7-1.1 cm Ao Root: 3.10 2.1-3.5 cm LA Diam: 4.60 2.7-3.8/3.0-4.0 cm LAIDs Index: 2.61 1.5-2.3 cm/m2 LV Mass: 228.48 67-162/88-224 g LV Mass Index: 129.82 43-95/49-115 g/m2 LVOT Diam: 2.10 3.0+(-)1.3 cm Mitral Valve MV Pk E: 0.93 MV Decel Time: 199.00 E'Lateral: 4.90 E'Medial: 4.35 E/E' Med: 21.50 E/E' Lat: 19.10 PHT: 58.00 MVA PHT: 3.79 Decel [place]: 4.70 Aortic Valve AoV Pk Bala: 1.19 AoV Mn Bala: 0.67 AoV VTI: 0.19 AoV Pk Grad: 6.00 Aov Mn Grad: 2.00 BERYL Cont.VTI: 1.90 LVOT LVOT Pk Bala: 0.64 LVOT Mn Bala: 0.35 LVOT VTI: 0.10 LVOT Pk Grad: 2.00 LVOT Mn Grad: 1.00 LVOT Diam: 2.10 LVOT Area: 3.46 Diastolic Function MV Pk E: 0.93 E'Medial: 4.35 E/E' Med: 21.50 E' Laterial: 4.90 E/E' Lat: 19.10 Tricuspid Valve TR Pk Bala: 2.87 TR Pk Grad: 33.00 Great Vessels Aorta Ao Root-2D: 3.10 2.0-3.7 cm Ao Asc: 3.40 2.1-3.4 cm Pulmonary Valve PV Pk Bala: 0.49 Peak PV Grad: 1.00 Updated in Other Vendor System with Status of Final Mehdi Weber MD electronically signed on 08/28/2022 5:10:58 PM with status of Final
[2022-08-28 07:05] LABS: B Type Natriuretic Peptide 2806 pg/mL (<100)
[2022-08-28 07:15] LABS: Alanine Aminotransferase 1503 U/L (0-31); Albumin Level 4.3 g/dL (3.5-5.0); Alkaline Phosphatase 60 U/L (39-117); Aspartate Amino Transferase 2010 U/L (5-31); Bilirubin Total 4.7 mg/dL (0.0-1.0); Blood Urea Nitrogen 51 mg/dL (9-16); Calcium 8.4 mg/dL (8.4-10.2); Ethanol < 10 mg/dL; Glucose Random 93 mg/dL (60-115); Magnesium 2.5 mg/dL (1.6-2.6); Thyroid Stimulating Hormone > 100.00 uIU/mL (0.32-4.0); Total Protein 7.2 g/dL (6.5-8.0)
[2022-08-28] MEDS: Sodium Bicarbonate 8.4% 50 MEQ/50 ML SYRINGE IVPUSH (07:17)
[2022-08-28 07:19] LABS: Troponin-I High Sensitivity 55.8 ng/L (<3.5-17.0)
[2022-08-28 07:20] LABS: Band Neutrophils Percent 5 % (3-5); Lymphocytes Percent Manual 12 % (20-40); Metamyelocytes Percent 1 %; Monocytes Percent Manual 4 % (2-11); Myelocytes Percent 1 %; Neutrophils Percent Manual 77 % (45-73); Nucleated Red Blood Cells 10 /100WBC (0-0)
[2022-08-28 07:21] LABS: Platelet Estimate NORMAL (NORMAL)
[2022-08-28 07:22] LABS: Burr Cells 2+ (3-5) /OIF; Large Platelet PRESENT; Macrocytosis 1+ (5-14) /OIF; Platelet Morphology Comment NOTED; RBC Morphology NOTED
[2022-08-28 07:23] LABS: Polychromasia 1+ (0-2) /OIF
[2022-08-28 07:24] LABS: Hypochromasia 1+ (5-14) /OIF
[2022-08-28] MEDS: Magnesium Sulfate/H2O 2 GM/50 ML PIGGYBACK IV (07:26)
[2022-08-28 07:27] LABS: Lymphocytes Absolute Manual 2.2 X10*3/uL (1.2-4.9); Metamyelocytes Absolute 0.2 X10*3/uL; Monocytes Absolute Manual 0.7 X10*3/uL (0.1-1.2); Myelocytes Absolute 0.2 X10*/uL; Neutrophils Absolute Manual 14.8 X10*3/uL (2.0-8.3); Platelet Count 160 X10*3/uL (160-400); White Blood Count 18.1 X10*3/uL (4.8-10.8)
[2022-08-28 07:37] LABS: Lactic Acid 12.8 mmol/L (0.5-2.0)
[2022-08-28 07:39] LABS: Anion Gap 32 (12-20); Carbon Dioxide 11 mmol/L (22-29); Chloride 104 mmol/L (96-108); Creatinine Clr Calc Pharmacy 8.5; Estimated Glomerular Filt Rate 10; Potassium 8.4 mmol/L (3.3-5.1); Sodium 139 mmol/L (135-145)
[2022-08-28] MEDS: 0.9 % Sodium Chloride 1,837.05 ML 1837.05 ML IV (08:03)
[2022-08-28] MEDS: Sodium Bicarbonate 8.4% 50 MEQ/50 ML SYRINGE 100 MEQ IVPUSH (08:05)
[2022-08-28] MEDS: Calcium Gluconate/NaCl,Iso-Osm 2 GM/100 ML PLAST..BAG IV (08:05)
--- NOTE | 2022-08-28 08:17 | PC.NURSE ---
externally paced at 70, confused and rolling and moving in bed and grabbing at o2 and wires, soft restraints applied, medicated as ordered, ct complete, collar in place, barron placed, still unable to get spo2 despite mult attempts and placements, on nc 6lpm, dark yellow urine from barron,
--- NOTE | 2022-08-28 08:24 | MHC.EDTECH ---
@08:14 CALL PLACED TO [facility] PT TX LINE @ REQUEST OF DR ANDRES PETERS ANSWERS, TAKES PT INFO, THEN ASKS TO SPEAK WITH DR ANDRES CAMPOS TAKES OVER CALL RIGHT AWAY @08:20 DR CAMPOS REQUESTS CALL OUT TO [facility] FOR POSSIBLE TRANSFER [facility] DECLINED TRANSFER KENNETH ANSWERS, TAKES PT INFO, THEN ASKS TO SPEAK WITH DR ANDRES CAMPOS TAKES OVER CALL RIGHT AWAY
[2022-08-28 08:33] LABS: Appearance Urine Turbid; Color Urine Dark Yellow; Glucose Urine UA Negative (Negative); Leukocyte Esterase Urine Small (1+) (Negative); Nitrite Urine Positive (Negative); Specific Gravity - Urine 1.025 (1.005-1.025); UMIC TRIGGER UACC YES; Urine Blood Small (1+) (Negative); Urine Ketones Trace mg/dL (Negative); Urine Protein 300 (3+) mg/dL (Neg-Trace)
[2022-08-28] MEDS: Levothyroxine Sodium 100 MCG/5 ML VIAL IVPUSH (08:39)
[2022-08-28] MEDS: dexAMETHasone sod phosphate 10 MG/ML VIAL IVPUSH (08:39)
--- NOTE | 2022-08-28 08:40 | MHC.EDTECH ---
8:31am Zina called requesting facesheet to be faxed to [phone] facesheet was faxed as requested @8:37 Zina called back to speak with Dr. Bhatt with an ICU doctor from [facility] on the line Dr. Bhatt took over the call right away
[2022-08-28 08:47] LABS: Reflex Lactate? Lactic Acid Added
[2022-08-28 08:49] LABS: Bacteria Urine 1+ (None Seen); Calcium Oxalate Crystals Urine Present; Hyaline Casts Urine >20 /LPF (0-2); Other Crystals Urine Present; RBC Urine >20 /HPF (0-2); Squamous Epithelial Cell Urine >20 /HPF (0-2); UACC Culture Trigger YES; WBC Urine 0-5 /HPF (0-5)
--- NOTE | 2022-08-28 08:51 | ECG_ITS ---
Test Reason : unresponsive Blood Pressure : / mmHG Vent. Rate : 090 BPM Atrial Rate : 044 BPM P-R Int : 000 ms QRS Dur : 056 ms QT Int : 500 ms P-R-T Axes : 086 131 096 degrees QTc Int : 611 ms Intermittent failure to capture with wide QRS Abnormal ECG When compared with ECG of 28-AUG-2022 06:25, No significant changes seen Referred By: Sven Bhatt Electronically Signed By:KAREN SCHNEIDER MD
[2022-08-28 09:15] LABS: Ammonia 144 umol/L (13-55)
[2022-08-28] MEDS: Norepinephrine Bitartrate/D5W 8 MG/250 ML PLAST..BAG 5.74 MG IV (09:18)
--- NOTE | 2022-08-28 09:32 | PM.CNCAR ---
History of Present Illness History of Present Illness Date of Service: 08/28/22 Requesting physician: Sven Bhatt Chief complaint: Shock, pacer malfunction Narrative: I was consulted to see Kelly in cardiology consultation today because of her EKG showing failure to capture with ventricular pacing spikes. Patient has prior history of what appears to be sick sinus syndrome with dual-chamber cardiac pacemaker, Biotronik which seems to be have been functioning well. Patient was brought to the emergency room found on the floor unresponsive. Patient came to the Emergency when she was in shock and a blood pressure remains markedly diminished. Just started on Levophed to maintain perfusion. She is noted to have marked hyperkalemia with potassium of 8.4 and creatinine of 4.33 with lactic acid of 12.8. Her kidney failure is new with last creatinine on August 07 of 1.34. She also has history of paroxysmal atrial fibrillation. Recently hospitalized after a fall and had bilateral sacroiliitis at that time he had atrial fibrillation which converted with rate control. She has history of chronic anemia getting blood transfusion as well as leukocytosis. She has had multiple falls. Patient has marked elevation of AST and ALT as well as elevation of BNP and troponin. Overall findings suggestive of multi-system organ failure. Patient is not completely responsible when I call her name out she opened her eyes and moved her hand a low bit. Difficult to obtain blood pressure. No symptoms of 10 able from the patient. On arrival patient was also noted to be markedly hypothermic and currently in a warming black it. She is on external pacer with noted capture on the monitor but not sure that is creating adequate myocardial output. Received treatment for hyperkalemia with calcium gluconate and bicarbonate. Review of Systems Review of Systems: Yes Unobtainable due to mental condition [facility] Past Medical History Medical History Anemia Colitis Compression fracture of thoracolumbar vertebra Congestive heart failure (CHF) GERD (gastroesophageal reflux disease) HTN (hypertension) Hx of cardiac pacemaker Hx of thyroid disease Family History Family History Brother Cancer Sister Sister Dementia Son Esophageal cancer Surgical History Surgical History H/O colonoscopy History of permanent cardiac pacemaker placement Hx of eye surgery Hx of hysterectomy Hx of knee surgery Hx of tracheostomy Hx of tubal ligation Social History Social History Household Members: None Housing: House Are you a primary career development counselor to a significant other at home: No Do you presently have visiting nurse or other home services: No Alcohol intake: current Alcohol intake frequency: holidays/special occasions only Alcohol type: hard liquor Patient Tobacco Use Status: Current everyday Tobacco user Tobacco use type: Cigarette Cigarette Packs Per Day: 1.0 Cigarettes Per Day: 20.0 Years Smoked: 41 Second Hand Smoke Exposure: No Advance Directives: Yes Advance Directives on File: Yes Advance Directives Date on File: 02/08/22 service: No Current occupational status: retired Meds Allergies Allergy/AdvReac Type Severity Reaction Status Date / Time No Known Allergies Allergy Verified 07/20/22 14:04 [No Known Allergies*] Active Medications: Current Medications Calcium Gluconate (Calcium Gluconate) 2 gm in 100 mls @ 50 mls/hr IV ONCE ONE Stop: 08/28/22 09:35 Last Admin: 08/28/22 08:05 Dose: 50 mls/hr Sodium Bicarbonate 150 meq/ (Dextrose) 1,000 mls @ 100 mls/hr IV .Q10H [place]TA Norepinephrine Bitartrate (Levophed) 8 mg in 250 mls @ 0 mls/hr IV .Q0M BALTA; Protocol Home Medications Medication Instructions Recorded Confirmed Last Taken Type fluoxetine 40 mg capsule 40 mg PO DAILY 06/21/20 04/12/22 01/23/22 History levothyroxine 88 mcg tablet 88 mcg PO DAILY 06/21/20 04/12/22 01/23/22 History quetiapine 300 mg tablet 300 mg PO BEDTIME 06/21/20 04/12/22 01/23/22 History lisinopril 10 mg tablet 10 mg PO DAILY 12/18/21 04/12/22 01/23/22 History fluticasone propionate 50 spray intranasal 07/20/22 Unknown History mcg/actuation nasal spray,suspension Physical Exam Vital Signs: Vital Signs: Last Vital Signs Temp 92 F L 08/28/22 08:15 Pulse 70 08/28/22 08:15 Resp 19 08/28/22 08:15 BP 106/35 L 08/28/22 08:15 O2 Del Method Nasal Cannula 08/28/22 06:56 BMI result Body Mass Index 27.6 Const: General: ill appearing and patient obtunded Orientation/consciousness: patient obtunded HEENT: Head: Yes normocephalic and Yes atraumatic Neck: Other: In cervical collar, poor carotid pulse Resp: Effort & Inspection: decreased respiratory effort Auscultation: clear to auscultation bilaterally Cardio: Rate: bradycardic Heart sounds: S1 normal heart sound present and S2 normal heart sound present GI: Palpation (GI): Soft to palpation Auscultation: normal bowel sounds Skin: General skin exam: no rashes or lesions noted Neuro: General: moves all extremities and patient obtunded Extrem: General: Yes no clubbing, cyanosis or edema Objective Labs and Meds 08/28/22 06:29 08/28/22 06:29 Lab results: Laboratory Results - last 24 hr 08/28/22 08/28/22 08/28/22 06:18 06:28 06:29 WBC 18.1 H RBC 3.40 L Hgb 11.1 L Hct 34.5 L MCV 101.5 H MCH 32.6 MCHC 32.2 RDW 24.4 H Plt Count 160 MPV Not Reportable Immature Gran % (Auto) Cancelled Neut % (Auto) Cancelled Lymph % (Auto) Cancelled [place] % (Auto) Cancelled Eos % (Auto) Cancelled Baso % (Auto) Cancelled Lymph # (Auto) Cancelled [place] # (Auto) Cancelled Eos # (Auto) Cancelled Baso # (Auto) Cancelled Abs Immat Gran (auto) Cancelled Absolute Neuts (auto) Cancelled Absolute Nucleated RBC 1.170 H Nucleated RBC % (auto) 6.4 H Neutrophils % (Manual) 77 H Band Neutrophils % 5 Lymphocytes % (Manual) 12 L Monocytes % (Manual) 4 Metamyelocytes % 1 Myelocytes % 1 Abs Neuts (Manual) 14.8 H Lymphocytes # (Manual) 2.2 Monocytes # (Manual) 0.7 Metamyelocytes # 0.2 Myelocytes # 0.2 Nucleated RBCs 10 H Platelet Estimate NORMAL Large Platelets PRESENT Plt Morphology Comment NOTED RBC Morphology NOTED Polychromasia 1+ (0-2) Hypochromasia 1+ (5-14) Macrocytosis 1+ (5-14) [place] Cells 2+ (3-5) PT INR APTT VBG pH VBG pCO2 VBG pO2 VBG HCO3 VBG O2 Saturation VBG Base Excess Sodium Potassium Chloride Carbon Dioxide Anion Gap BUN Creatinine Estim Creat Clear Calc Estimated GFR POC Glucose 89 Random Glucose Lactic Acid Calcium Magnesium Total Bilirubin AST ALT Alkaline Phosphatase Ammonia Troponin I High Sens B-Natriuretic Peptide Total Protein Albumin TSH Urine Color Urine Appearance Urine pH Ur Specific [place] Urine Protein Urine Glucose (UA) Urine Ketones Urine Blood Urine Nitrite Ur Leukocyte Esterase Urine RBC Urine WBC Ur Squamous Epith Cells Calcium Oxalate Crystal Other Crystals Urine Bacteria Hyaline Casts Ethyl Alcohol Cancelled 08/28/22 08/28/22 08/28/22 06:29 06:29 06:29 WBC RBC Hgb Hct MCV MCH MCHC RDW Plt Count MPV Immature Gran % (Auto) Neut % (Auto) Lymph % (Auto) [place] % (Auto) Eos % (Auto) Baso % (Auto) Lymph # (Auto) [place] # (Auto) Eos # (Auto) Baso # (Auto) Abs Immat Gran (auto) Absolute Neuts (auto) Absolute Nucleated RBC Nucleated RBC % (auto) Neutrophils % (Manual) Band Neutrophils % Lymphocytes % (Manual) Monocytes % (Manual) Metamyelocytes % Myelocytes % Abs Neuts (Manual) Lymphocytes # (Manual) Monocytes # (Manual) Metamyelocytes # Myelocytes # Nucleated RBCs Platelet Estimate Large Platelets Plt Morphology Comment RBC Morphology Polychromasia Hypochromasia Macrocytosis [place] Cells PT 26.9 H INR 2.3 H APTT 27.6 VBG pH VBG pCO2 VBG pO2 VBG HCO3 VBG O2 Saturation VBG Base Excess Sodium 139 Potassium 8.4 H* D Chloride 104 Carbon Dioxide 11 L Anion Gap 32 H BUN 51 H Creatinine 4.33 H* Estim Creat Clear Calc 8.5 Estimated GFR 10 POC Glucose Random Glucose 93 Lactic Acid Calcium 8.4 D Magnesium 2.5 Total Bilirubin 4.7 H AST 2010 H ALT 1503 H Alkaline Phosphatase 60 Ammonia Troponin I High Sens 55.8 H* B-Natriuretic Peptide Total Protein 7.2 Albumin 4.3 TSH > 100.00 H Urine Color Urine Appearance Urine pH Ur Specific [place] Urine Protein Urine Glucose (UA) Urine Ketones Urine Blood Urine Nitrite Ur Leukocyte Esterase Urine RBC Urine WBC Ur Squamous Epith Cells Calcium Oxalate Crystal Other Crystals Urine Bacteria Hyaline Casts Ethyl Alcohol < 10 08/28/22 08/28/22 08/28/22 06:29 06:41 06:49 WBC RBC Hgb Hct MCV MCH MCHC RDW Plt Count MPV Immature Gran % (Auto) Neut % (Auto) Lymph % (Auto) [place] % (Auto) Eos % (Auto) Baso % (Auto) Lymph # (Auto) [place] # (Auto) Eos # (Auto) Baso # (Auto) Abs Immat Gran (auto) Absolute Neuts (auto) Absolute Nucleated RBC Nucleated RBC % (auto) Neutrophils % (Manual) Band Neutrophils % Lymphocytes % (Manual) Monocytes % (Manual) Metamyelocytes % Myelocytes % Abs Neuts (Manual) Lymphocytes # (Manual) Monocytes # (Manual) Metamyelocytes # Myelocytes # Nucleated RBCs Platelet Estimate Large Platelets Plt Morphology Comment RBC Morphology Polychromasia Hypochromasia Macrocytosis [place] Cells PT INR APTT VBG pH 7.09 L* VBG pCO2 24 VBG pO2 49 VBG HCO3 7 L VBG O2 Saturation 55.0 VBG Base Excess -20.3 Sodium Potassium Chloride Carbon Dioxide Anion Gap BUN Creatinine Estim Creat Clear Calc Estimated GFR POC Glucose Random Glucose Lactic Acid 12.8 H* Calcium Magnesium Total Bilirubin AST ALT Alkaline Phosphatase Ammonia Troponin I High Sens B-Natriuretic Peptide 2806 H Total Protein Albumin TSH Urine Color Urine Appearance Urine pH Ur Specific [place] Urine Protein Urine Glucose (UA) Urine Ketones Urine Blood Urine Nitrite Ur Leukocyte Esterase Urine RBC Urine WBC Ur Squamous Epith Cells Calcium Oxalate Crystal Other Crystals Urine Bacteria Hyaline Casts Ethyl Alcohol 08/28/22 08/28/22 08:17 08:33 WBC RBC Hgb Hct MCV MCH MCHC RDW Plt Count MPV Immature Gran % (Auto) Neut % (Auto) Lymph % (Auto) [place] % (Auto) Eos % (Auto) Baso % (Auto) Lymph # (Auto) [place] # (Auto) Eos # (Auto) Baso # (Auto) Abs Immat Gran (auto) Absolute Neuts (auto) Absolute Nucleated RBC Nucleated RBC % (auto) Neutrophils % (Manual) Band Neutrophils % Lymphocytes % (Manual) Monocytes % (Manual) Metamyelocytes % Myelocytes % Abs Neuts (Manual) Lymphocytes # (Manual) Monocytes # (Manual) Metamyelocytes # Myelocytes # Nucleated RBCs Platelet Estimate Large Platelets Plt Morphology Comment RBC Morphology Polychromasia Hypochromasia Macrocytosis [place] Cells PT INR APTT VBG pH VBG pCO2 VBG pO2 VBG HCO3 VBG O2 Saturation VBG Base Excess Sodium Potassium Chloride Carbon Dioxide Anion Gap BUN Creatinine Estim Creat Clear Calc Estimated GFR POC Glucose Random Glucose Lactic Acid Calcium Magnesium Total Bilirubin AST ALT Alkaline Phosphatase Ammonia 144 H Troponin I High Sens B-Natriuretic Peptide Total Protein Albumin TSH Urine Color Dark Yellow Urine Appearance Turbid Urine pH 5.0 Ur Specific [place] 1.025 Urine Protein 300 (3+) H Urine Glucose (UA) Negative Urine Ketones Trace Urine Blood Small (1+) H Urine Nitrite Positive H Ur Leukocyte Esterase Small (1+) H Urine RBC >20 H Urine WBC 0-5 Ur Squamous Epith Cells >20 Calcium Oxalate Crystal Present Other Crystals Present Urine Bacteria 1+ Hyaline Casts >20 Ethyl Alcohol Imaging Radiologist's impression: Impressions Cervical Spine CT 08/28/22 08:10 IMPRESSION: Significantly limited study. Overall appearance is similar to the most recent cervical spine CT scan. No definitive acute fractures seen however evaluation for acute nondisplaced fracture is limited. If pain persists or worsens, a repeat CT scan is recommended when possible. Head CT 08/28/22 08:10 IMPRESSION: Limited study without overt acute intracranial abnormality. Symptoms persist or worsen, a short-term repeat PET/CT scan is recommended. Assessment and Plan (1) Pacemaker malfunction: Status: Acute Patient with loss of ventricular capture is secondary to severe metabolic acidosis and marked hyperkalemia. She has ventricular spikes but without capture and is currently idioventricular rhythm with markedly low blood pressure. Her metabolic abnormality needs to be corrected. Transvenous pacemaker is not going to help her situation. Patient require acute dialysis to correct the hyperkalemia and probably metabolic acidosis and help improve ventricular capture with the pacemaker and improve her cardiac output. Meanwhile supporter with vasopressors. Cause of shock is unknown at this point in time, question severe sepsis leading to hypotension subsequently poor perfusion and acidosis along with multisystem organ failure. Prognosis is extremely grim and likelihood of survival is low. Findings of this were discussed by Dr. Bhatt with the daughter and patient is still full code. Findings discussed with both ED physician, Nephrology and Critical Care Team. Patient requires ICU admission. Her elevated troponins and BNP again are result of severe low perfusion and acidosis. She is not in heart failure. Will have the pacer bilingual sales representative come and try to interrogate the device although I do not think that there is going be ventricular capture without correction of her hyperkalemia and/or metabolic acidosis. Will follow with you. Time Spent With Patient Time: Total time managing care of this patient today ____ minutes. Procedures Date of Service Date of Service: 08/28/22
[2022-08-28] MEDS: Sodium Bicarbonate 8.4% 150 MEQ in Dextrose 5 % 850 ML 100 MEQ IV (09:33)
[2022-08-28] MEDS: Insulin Regular, Human 100 UNIT/ML 3 ML VIAL 10 UNIT IVPUSH (09:34)
[2022-08-28] MEDS: Dextrose 25 % 2.5 GM/10 ML SYRINGE IVPUSH (09:40)
[2022-08-28] MEDS: propofoL 200 MG/20 ML VIAL 100 MG IVPUSH (10:18)
--- NOTE | 2022-08-28 10:34 | P.CONNP_ITS ---
History of Present Illness Reason for Consult Consult date: 08/28/22 Reason for consult: KATHIA amd severe Hyperkalemia Chief Complaint Chief complaint: Shock, KATHIA History of Present Illness Narrative: 81 years old with history of hypothyroidism hypertension anxiety depression CHF history of cardiac pacemaker chronic back pain osteoporosis anemia atrial fibrillation not on any anticoagulants lives alone with history of alcohol abuse came here patient was found next to the bed on the ground with empty bottles of alcohol family tried to reach earlier unable to reach her and called the EMS. upon arrival. K was 8.4 with severe acidosis Review of Systems Review of Systems unable to give ROS PMFSH Past Medical History Medical History Anemia Colitis Compression fracture of thoracolumbar vertebra Congestive heart failure (CHF) GERD (gastroesophageal reflux disease) HTN (hypertension) Hx of cardiac pacemaker Hx of thyroid disease Family History Family History Brother Cancer Sister Sister Dementia Son Esophageal cancer Surgical History Surgical History H/O colonoscopy History of permanent cardiac pacemaker placement Hx of eye surgery Hx of hysterectomy Hx of knee surgery Hx of tracheostomy Hx of tubal ligation Social History Social History Household Members: Unknown / Unable to assess Housing: Unknown / Unable to assess Are you a primary district manager primary care sales to a significant other at home: No Do you presently have visiting nurse or other home services: No Unable to assess alcohol history related to: Unknown Alcohol intake: current Alcohol intake frequency: holidays/special occasions only Alcohol type: hard liquor Patient Tobacco Use Status: Tobacco use Unknown Tobacco use type: Cigarette Cigarette Packs Per Day: 1.0 Cigarettes Per Day: 20.0 Years Smoked: 41 Second Hand Smoke Exposure: No Substance Use Type: Unknown Advance Directives Date on File: 02/08/22 service: No Current occupational status: retired Meds Allergies Allergy/AdvReac Type Severity Reaction Status Date / Time No Known Allergies Allergy Verified 07/20/22 14:04 [No Known Allergies*] Active Medications: Current Medications Sodium Bicarbonate 150 meq/ (Dextrose) 1,000 mls @ 100 mls/hr IV .Q10H BALTA Last Admin: 08/28/22 09:33 Dose: 100 mls/hr Norepinephrine Bitartrate (Levophed) 8 mg in 250 mls @ 0 mls/hr IV .Q0M [facility]; Protocol Last Titration: 08/28/22 09:56 Dose: 0.4 mcg/kg/min, 45.93 mls/hr Physical Exam Vital Signs: Last Vital Signs Temp 91.9 F L 08/28/22 09:54 Pulse 50 08/28/22 09:56 Resp 16 08/28/22 09:54 BP 66/42 L 08/28/22 09:56 O2 Del Method Oxymask 08/28/22 09:54 O2 Flow Rate 13 08/28/22 09:54 BMI result Body Mass Index 27.6 Appearance:? Lethargic looks sick pale cold peripheries Eyes: PERRLA, No Nystagmus ENT: Pharynx normal. Oral Mucosa moist Neck: Normal inspection.? Neck supple. CVS: Normal heart rate and rhythm.? Pulses normal. Respiratory: No respiratory distress.? Equal air entry bilateral,? no wheezing/rales/rhonchi Abdomen: Soft and nontender.? Bowel sounds are present, no mass palpable, no CVA tenderness Skin: Skin warm and dry.? Normal skin color.? Normal skin turgor. Extremities: No lower extremity edema.? No calf tenderness Neuro:? Lethargic moving her all 4 extremities Results Lab Results 08/28/22 06:29 08/28/22 06:29 Lab results: Chemistry 08/28/22 06:29 Sodium 139 Potassium 8.4 H* D Carbon Dioxide 11 L BUN 51 H Creatinine 4.33 H* Calcium 8.4 D Hematology 08/28/22 06:29 WBC 18.1 H Hgb 11.1 L Plt Count 160 Urinalysis 08/28/22 08:17 Urine Color Dark Yellow Urine Appearance Turbid Urine pH 5.0 Ur Specific [place] 1.025 Urine Protein 300 (3+) H Urine Glucose (UA) Negative Urine Ketones Trace Urine Blood Small (1+) H Urine Nitrite Positive H Ur Leukocyte Esterase Small (1+) H Urine RBC >20 H Urine WBC 0-5 Ur Squamous Epith Cells >20 Hyaline Casts >20 Assessment and Plan (1) Metabolic acidosis: Status: Acute (2) Acute hyperkalemia: Status: Acute (3) KATHIA (acute kidney injury): Status: Acute Plan 81-year-old woman with severe hyperkalemia metabolic acidosis and acute kidney injury. Acute kidney injury is mostly due to hypoperfusion / acute tubular injury. Obstruction needs to be ruled out. Other possibilities including glomerular nephritis interstitial disease should be considered. For now the urgent issue include severe hyperkalemia and metabolic acidosis. I have discussed with the team and we will initiate hemodialysis with a low- potassium bath to correct hyperkalemia and use a high bicarb bath to correct acidosis. Obtain Cardiology evaluation. Concur with other management and we will follow her closely with the team. Thank you Time Spent With Patient Time: Total time managing care of this patient today ____ minutes. Procedures Date of Service Date of Service: 08/28/22
--- NOTE | 2022-08-28 10:54 | PC.NURSE ---
Patient needing cental line Dr Madden from ICU placed a dialysis catheter in the right femoral artery at 1005. Patient with low BP and Norepinepherine was increased to 0.4 at 0956, then to 0.6 at 1015, 0.8 at 1023, lastly 1 at 1025. Patient was intibated at [address] Madden with 7.5 tube 24 at the lip. Patinet was transferred to ICU at 1045. Bedside report given.
[2022-08-28 11:08] LABS: VBG Base Excess -8.5 mmol/L; VBG HCO3 17 mmol/L (22-26); VBG O2 % Saturation < 30.0 %; VBG pCO2 38 mmHg; VBG pH 7.26 (7.32-7.43); VBG pO2 31 mmHg
--- NOTE | 2022-08-28 11:12 | PHA.MEDREC ---
Pharmacy Consult ? Medication Reconciliation Med rec was done based on pharmacy claim history Pharmacy has completed the medication reconciliation.
--- NOTE | 2022-08-28 11:19 | PC.RT ---
pt intubated at 10 20 this am with a 7.5 eet at 24 lip . +etc02 color change and + quantative etc02 with numerical value of 15. pt was sedated with propofol for intubation. Pt was then transferred to ICU via ambu bag with RN/RT/PCT without incicdent. and transferred to ICU bed and placed on Vent AC/VC 30-vt 400-fi02 100%-peep 5. per Dr[address] Madden
[2022-08-28] MEDS: Sodium Bicarbonate 8.4% 50 MEQ/50 ML SYRINGE 250 MEQ IVPUSH (11:28)
[2022-08-28 11:29] LABS: Anion Gap 33 (12-20); Blood Urea Nitrogen 47 mg/dL (9-16); Calcium 7.4 mg/dL (8.4-10.2); Carbon Dioxide 18 mmol/L (22-29); Chloride 105 mmol/L (96-108); Creatinine Clr Calc Pharmacy 10.5; Estimated Glomerular Filt Rate 11; Glucose Random 198 mg/dL (60-115); Potassium 5.9 mmol/L (3.3-5.1); Sodium 150 mmol/L (135-145)
[2022-08-28 11:43] LABS: ~Lactic Acid-LAB USE ONLY 17.5 mmol/L (0.5-2.0)
[2022-08-28 12:02] LABS: Alanine Aminotransferase 1267 U/L (0-31); Albumin Level 3.3 g/dL (3.5-5.0); Alkaline Phosphatase 45 U/L (39-117); Anion Gap 34 (12-20); Aspartate Amino Transferase 1761 U/L (5-31); Bilirubin Total 5.2 mg/dL (0.0-1.0); Blood Urea Nitrogen 48 mg/dL (9-16); Calcium 7.7 mg/dL (8.4-10.2); Carbon Dioxide 18 mmol/L (22-29); Chloride 105 mmol/L (96-108); Creatinine Clr Calc Pharmacy 10.3; Estimated Glomerular Filt Rate 11; Glucose Random 201 mg/dL (60-115); Magnesium 2.3 mg/dL (1.6-2.6); Phosphorus 8.7 mg/dL (2.7-4.5); Potassium 5.9 mmol/L (3.3-5.1); Sodium 151 mmol/L (135-145); Total Protein 5.4 g/dL (6.5-8.0)
[2022-08-28] MEDS: Norepinephrine Bitartrate/D5W 8 MG/250 ML PLAST..BAG 114.82 MG IV ×2 (12:14→13:57)
[2022-08-28] MEDS: Heparin Sodium,Porcine 5,000 UNIT/ML VIAL 5000 UNIT SUBCUT ×2 (12:14→18:38)
[2022-08-28] MEDS: propofoL 1,000 MG/100 ML VIAL 13.32 MG IVCONT ×2 (12:39→18:38)
[2022-08-28 13:07] LABS: Reflex Lactate? 2 Y
[2022-08-28 13:34] LABS: Venous Blood Gas Refer to POC result
--- NOTE | 2022-08-28 13:35 | W.PM.CCHP ---
Procedures Date of Service Date of Service: 08/28/22 Central Line Placement Right Femoral: Central Line Comments: Emergent placement of right internal jugular triple-lumen Wale catheter was attempted, but was abandoned secondary to inability to advance the wire. With no appropriate placement target in left internal jugular P, a right femoral triple-lumen Wale catheter emergently placed under ultrasound guidance and usual sterile conditions for emergent hemodialysis with no immediate complications.
[2022-08-28 13:37] LABS: ~Lactic Acid-LAB USE ONLY 3.8 mmol/L (0.5-2.0)
--- NOTE | 2022-08-28 13:38 | W.PM.CCHP ---
Procedures Date of Service Date of Service: 08/28/22 Intubation Intubation Comments: Patient emergently intubated for respiratory distress secondary to attempted respiratory compensation for profound metabolic acidosis with 7.5 cuffed ET tube under glide scope guidance with no immediate complications. ET tube position verified on chest x-ray.
--- NOTE | 2022-08-28 13:42 | P.HPCC_ITS ---
History of Present Illness Date of Service: 08/28/22 Chief Complaint: Unresponsiveness 81-year-old lady with underlying history of hypothyroidism, hypertension, AFib status post pacemaker placement alcohol abuse admitted on 08/28/2022 with unresponsiveness. On ER evaluation patient is hypothermic, with profound met abolic acidosis, hyperkalemia, transaminitis, acute renal failure, hypotension with poor response to initial IV fluid resuscitation and poor pacemaker capture. Patient was evaluated by Cardiology nephrology services. She was started on IV bicarbonate, vasopressor support, systemic glucocorticoids, IV levothyroxine, and given empiric antibiotics. Emergent hemodialysis catheter placed. Patient emergently intubated and transferred to intensive care unit for emergent hemodialysis. Review of Systems Review of Systems: Yes unobtainable due to endotracheal tube, Unobtainable due to mental condition and Unobtainable due to mental status PMFSH Past Medical History Medical History Anemia Colitis Compression fracture of thoracolumbar vertebra Congestive heart failure (CHF) GERD (gastroesophageal reflux disease) HTN (hypertension) Hx of cardiac pacemaker Hx of thyroid disease Family History Family History Brother Cancer Sister Sister Dementia Son Esophageal cancer Surgical History Surgical History H/O colonoscopy History of permanent cardiac pacemaker placement Hx of eye surgery Hx of hysterectomy Hx of knee surgery Hx of tracheostomy Hx of tubal ligation Social History Social History Household Members: Unknown / Unable to assess Housing: Unknown / Unable to assess Are you a primary rn progressive care to a significant other at home: No Do you presently have visiting nurse or other home services: No Unable to assess alcohol history related to: Unknown Alcohol intake: current Alcohol intake frequency: holidays/special occasions only Alcohol type: hard liquor Patient Tobacco Use Status: Tobacco use Unknown Tobacco use type: Cigarette Cigarette Packs Per Day: 1.0 Cigarettes Per Day: 20.0 Years Smoked: 41 Second Hand Smoke Exposure: No Substance Use Type: Unknown Advance Directives Date on File: 02/08/22 service: No Current occupational status: retired Meds Allergies Allergy/AdvReac Type Severity Reaction Status Date / Time No Known Allergies Allergy Verified 07/20/22 14:04 [No Known Allergies*] Active Medications: Current Medications Heparin Sodium (Porcine) (Heparin Sodium,Porcine 5,000 Unit/Ml Vial) 5,000 unit SUBCUT Q8H BALTA Last Admin: 08/28/22 12:14 Dose: 5,000 unit Sodium Bicarbonate 150 meq/ (Dextrose) 1,000 mls @ 100 mls/hr IV .Q10H BALTA Last Admin: 08/28/22 09:33 Dose: 100 mls/hr Norepinephrine Bitartrate (Levophed) 8 mg in 250 mls @ 0 mls/hr IV .Q0M BALTA; Protocol Last Admin: 08/28/22 12:14 Dose: 1 mcg/kg/min, 114.82 mls/hr Epinephrine 5 mg/ Dextrose 255 mls @ 0 mls/hr IVCONT .Q0M BALTA; Protocol Propofol (Diprivan) 1,000 mg in 100 mls @ 0 mls/hr IVCONT .Q0M BALTA; Protocol Last Titration: 08/28/22 12:54 Dose: 40 mcg/kg/min, 17.76 mls/hr Home Medications Medication Instructions Recorded Confirmed Last Taken Type fluoxetine 40 mg capsule 40 mg PO DAILY 06/21/20 08/28/22 01/23/22 History quetiapine 300 mg tablet 300 mg PO BEDTIME 06/21/20 08/28/22 01/23/22 History fluticasone propionate 50 1 spray intranasal DAILY 07/20/22 08/28/22 Unknown History mcg/actuation nasal spray,suspension ketotifen fumarate 0.025 % (0.035 1 drp ophthalmic (eye) BID 08/28/22 08/28/22 Unknown History %) eye drops ketotifen fumarate 0.025 % (0.035 1 drp ophthalmic (eye) BID 08/28/22 08/28/22 Unknown History %) eye drops levothyroxine 100 mcg tablet 100 mcg PO DAILY 08/28/22 08/28/22 Unknown History Physical Exam Vital Signs: Vital Signs: Last Vital Signs Temp 93.6 F L 08/28/22 13:00 Pulse 71 08/28/22 13:00 Resp 31 H 08/28/22 13:00 BP 134/38 L 08/28/22 13:00 O2 Del Method Mechanical Ventil ation 08/28/22 13:00 O2 Flow Rate 13 08/28/22 09:54 FiO2 100 08/28/22 12:00 BMI result Body Mass Index 28.0 Const: General: patient obtunded Orientation/consciousness: patient obtunded Eyes: Sclerae: sclerae normal Neck: Neck: Yes no lymphadenopathy, Yes trachea midline and Yes supple Resp: Auscultation: crackles (Diffuse bilateral) Cardio: Rate: regular rate Rhythm: regular rhythm Heart sounds: no gallops, no murmurs and no rubs GI: Palpation (GI): Soft to palpation and Other GI palpation findings present ( Nontender) Auscultation: normal bowel sounds Neuro: General: patient obtunded Extrem: General: Yes no pedal edema, No clubbing and No cyanosis Results Labs 08/28/22 06:29 08/28/22 11:03 Labs: Laboratory Results - last 24 hr 08/28/22 08/28/22 08/28/22 06:18 06:28 06:29 MCV 101.5 H MCH 32.6 MCHC 32.2 RDW 24.4 H Plt Count 160 MPV Not Reportable Immature Gran % (Auto) Cancelled Neut % (Auto) Cancelled Lymph % (Auto) Cancelled [place] % (Auto) Cancelled Eos % (Auto) Cancelled Baso % (Auto) Cancelled Lymph # (Auto) Cancelled [place] # (Auto) Cancelled Eos # (Auto) Cancelled Baso # (Auto) Cancelled Abs Immat Gran (auto) Cancelled Absolute Neuts (auto) Cancelled Absolute Nucleated RBC 1.170 H Nucleated RBC % (auto) 6.4 H Neutrophils % (Manual) 77 H Band Neutrophils % 5 Lymphocytes % (Manual) 12 L Monocytes % (Manual) 4 Metamyelocytes % 1 Myelocytes % 1 Abs Neuts (Manual) 14.8 H Lymphocytes # (Manual) 2.2 Monocytes # (Manual) 0.7 Metamyelocytes # 0.2 Myelocytes # 0.2 Nucleated RBCs 10 H Platelet Estimate NORMAL Large Platelets PRESENT Plt Morphology Comment NOTED RBC Morphology NOTED Polychromasia 1+ (0-2) Hypochromasia 1+ (5-14) Macrocytosis 1+ (5-14) Susana Cells 2+ (3-5) Smear Path Review SEE NOTE PT INR APTT VBG pH VBG pCO2 VBG pO2 VBG HCO3 VBG O2 Saturation VBG Base Excess Anion Gap Estim Creat Clear Calc Estimated GFR POC Glucose 89 Random Glucose Lactic Acid Lactic Acid F/U @ 2Hr Lactic Acid F/U @ 4Hr Calcium Phosphorus Magnesium Total Bilirubin AST ALT Alkaline Phosphatase Ammonia Total Creatine Kinase Troponin I High Sens B-Natriuretic Peptide Total Protein Albumin TSH Urine Color Urine Appearance Urine pH Ur Specific [place] Urine Protein Urine Glucose (UA) Urine Ketones Urine Blood Urine Nitrite Ur Leukocyte Esterase Urine RBC Urine WBC Ur Squamous Epith Cells Calcium Oxalate Crystal Other Crystals Urine Bacteria Hyaline Casts Ethyl Alcohol Cancelled 08/28/22 08/28/22 08/28/22 06:29 06:29 06:29 MCV MCH MCHC RDW Plt Count MPV Immature Gran % (Auto) Neut % (Auto) Lymph % (Auto) Ro[place] % (Auto) Eos % (Auto) Baso % (Auto) Lymph # (Auto) Ro[place] # (Auto) Eos # (Auto) Baso # (Auto) Abs Immat Gran (auto) Absolute Neuts (auto) Absolute Nucleated RBC Nucleated RBC % (auto) Neutrophils % (Manual) Band Neutrophils % Lymphocytes % (Manual) Monocytes % (Manual) Metamyelocytes % Myelocytes % Abs Neuts (Manual) Lymphocytes # (Manual) Monocytes # (Manual) Metamyelocytes # Myelocytes # Nucleated RBCs Platelet Estimate Large Platelets Plt Morphology Comment RBC Morphology Polychromasia Hypochromasia Macrocytosis [place] Cells Smear Path Review PT 26.9 H INR 2.3 H APTT 27.6 VBG pH VBG pCO2 VBG pO2 VBG HCO3 VBG O2 Saturation VBG Base Excess Anion Gap 32 H Estim Creat Clear Calc 8.5 Estimated GFR 10 POC Glucose Random Glucose 93 Lactic Acid Lactic Acid F/U @ 2Hr Lactic Acid F/U @ 4Hr Calcium 8.4 D Phosphorus Magnesium 2.5 Total Bilirubin 4.7 H AST 2010 H ALT 1503 H Alkaline Phosphatase 60 Ammonia Total Creatine Kinase Troponin I High Sens 55.8 H* B-Natriuretic Peptide Total Protein 7.2 Albumin 4.3 TSH > 100.00 H Urine Color Urine Appearance Urine pH Ur Specific [place] Urine Protein Urine Glucose (UA) Urine Ketones Urine Blood Urine Nitrite Ur Leukocyte Esterase Urine RBC Urine WBC Ur Squamous Epith Cells Calcium Oxalate Crystal Other Crystals Urine Bacteria Hyaline Casts Ethyl Alcohol < 10 08/28/22 08/28/22 08/28/22 06:29 06:41 06:49 MCV MCH MCHC RDW Plt Count MPV Immature Gran % (Auto) Neut % (Auto) Lymph % (Auto) [place] % (Auto) Eos % (Auto) Baso % (Auto) Lymph # (Auto) [place] # (Auto) Eos # (Auto) Baso # (Auto) Abs Immat Gran (auto) Absolute Neuts (auto) Absolute Nucleated RBC Nucleated RBC % (auto) Neutrophils % (Manual) Band Neutrophils % Lymphocytes % (Manual) Monocytes % (Manual) Metamyelocytes % Myelocytes % Abs Neuts (Manual) Lymphocytes # (Manual) Monocytes # (Manual) Metamyelocytes # Myelocytes # Nucleated RBCs Platelet Estimate Large Platelets Plt Morphology Comment RBC Morphology Polychromasia Hypochromasia Macrocytosis [place] Cells Smear Path Review PT INR APTT VBG pH 7.09 L* VBG pCO2 24 VBG pO2 49 VBG HCO3 7 L VBG O2 Saturation 55.0 VBG Base Excess -20.3 Anion Gap Estim Creat Clear Calc Estimated GFR POC Glucose Random Glucose Lactic Acid 12.8 H* Lactic Acid F/U @ 2Hr Lactic Acid F/U @ 4Hr Calcium Phosphorus Magnesium Total Bilirubin AST ALT Alkaline Phosphatase Ammonia Total Creatine Kinase Troponin I High Sens B-Natriuretic Peptide 2806 H Total Protein Albumin TSH Urine Color Urine Appearance Urine pH Ur Specific [place] Urine Protein Urine Glucose (UA) Urine Ketones Urine Blood Urine Nitrite Ur Leukocyte Esterase Urine RBC Urine WBC Ur Squamous Epith Cells Calcium Oxalate Crystal Other Crystals Urine Bacteria Hyaline Casts Ethyl Alcohol 08/28/22 08/28/22 08/28/22 08:17 08:33 11:00 MCV MCH MCHC RDW Plt Count MPV Immature Gran % (Auto) Neut % (Auto) Lymph % (Auto) [place] % (Auto) Eos % (Auto) Baso % (Auto) Lymph # (Auto) [place] # (Auto) Eos # (Auto) Baso # (Auto) Abs Immat Gran (auto) Absolute Neuts (auto) Absolute Nucleated RBC Nucleated RBC % (auto) Neutrophils % (Manual) Band Neutrophils % Lymphocytes % (Manual) Monocytes % (Manual) Metamyelocytes % Myelocytes % Abs Neuts (Manual) Lymphocytes # (Manual) Monocytes # (Manual) Metamyelocytes # Myelocytes # Nucleated RBCs Platelet Estimate Large Platelets Plt Morphology Comment RBC Morphology Polychromasia Hypochromasia Macrocytosis [place] Cells Smear Path Review PT INR APTT VBG pH 7.26 L VBG pCO2 38 VBG pO2 31 VBG HCO3 17 L VBG O2 Saturation < 30.0 VBG Base Excess -8.5 Anion Gap Estim Creat Clear Calc Estimated GFR POC Glucose Random Glucose Lactic Acid Lactic Acid F/U @ 2Hr Lactic Acid F/U @ 4Hr Calcium Phosphorus Magnesium Total Bilirubin AST ALT Alkaline Phosphatase Ammonia 144 H Total Creatine Kinase Troponin I High Sens B-Natriuretic Peptide Total Protein Albumin TSH Urine Color Dark Yellow Urine Appearance Turbid Urine pH 5.0 Ur Specific [place] 1.025 Urine Protein 300 (3+) H Urine Glucose (UA) Negative Urine Ketones Trace Urine Blood Small (1+) H Urine Nitrite Positive H Ur Leukocyte Esterase Small (1+) H Urine RBC >20 H Urine WBC 0-5 Ur Squamous Epith Cells >20 Calcium Oxalate Crystal Present Other Crystals Present Urine Bacteria 1+ Hyaline Casts >20 Ethyl Alcohol 08/28/22 08/28/22 08/28/22 11:03 11:03 11:03 MCV MCH MCHC RDW Plt Count MPV Immature Gran % (Auto) Neut % (Auto) Lymph % (Auto) [place] % (Auto) Eos % (Auto) Baso % (Auto) Lymph # (Auto) [place] # (Auto) Eos # (Auto) Baso # (Auto) Abs Immat Gran (auto) Absolute Neuts (auto) Absolute Nucleated RBC Nucleated RBC % (auto) Neutrophils % (Manual) Band Neutrophils % Lymphocytes % (Manual) Monocytes % (Manual) Metamyelocytes % Myelocytes % Abs Neuts (Manual) Lymphocytes # (Manual) Monocytes # (Manual) Metamyelocytes # Myelocytes # Nucleated RBCs Platelet Estimate Large Platelets Plt Morphology Comment RBC Morphology Polychromasia Hypochromasia Macrocytosis Susana Cells Smear Path Review PT INR APTT VBG pH VBG pCO2 VBG pO2 VBG HCO3 VBG O2 Saturation VBG Base Excess Anion Gap 33 H 34 H Estim Creat Clear Calc 10.5 10.3 Estimated GFR 11 11 POC Glucose Random Glucose 198 H 201 H Lactic Acid Lactic Acid F/U @ 2Hr 17.5 H* Lactic Acid F/U @ 4Hr Calcium 7.4 L D 7.7 L Phosphorus 8.7 H Magnesium 2.3 Total Bilirubin 5.2 H AST 1761 H ALT 1267 H Alkaline Phosphatase 45 Ammonia Total Creatine Kinase 2671 H Troponin I High Sens B-Natriuretic Peptide Total Protein 5.4 L Albumin 3.3 L TSH Urine Color Urine Appearance Urine pH Ur Specific [place] Urine Protein Urine Glucose (UA) Urine Ketones Urine Blood Urine Nitrite Ur Leukocyte Esterase Urine RBC Urine WBC Ur Squamous Epith Cells Calcium Oxalate Crystal Other Crystals Urine Bacteria Hyaline Casts Ethyl Alcohol 08/28/22 13:18 MCV MCH MCHC RDW Plt Count MPV Immature Gran % (Auto) Neut % (Auto) Lymph % (Auto) [place] % (Auto) Eos % (Auto) Baso % (Auto) Lymph # (Auto) [place] # (Auto) Eos # (Auto) Baso # (Auto) Abs Immat Gran (auto) Absolute Neuts (auto) Absolute Nucleated RBC Nucleated RBC % (auto) Neutrophils % (Manual) Band Neutrophils % Lymphocytes % (Manual) Monocytes % (Manual) Metamyelocytes % Myelocytes % Abs Neuts (Manual) Lymphocytes # (Manual) Monocytes # (Manual) Metamyelocytes # Myelocytes # Nucleated RBCs Platelet Estimate Large Platelets Plt Morphology Comment RBC Morphology Polychromasia Hypochromasia Macrocytosis Susana Cells Smear Path Review PT INR APTT VBG pH VBG pCO2 VBG pO2 VBG HCO3 VBG O2 Saturation VBG Base Excess Anion Gap Estim Creat Clear Calc Estimated GFR POC Glucose Random Glucose Lactic Acid Lactic Acid F/U @ 2Hr Lactic Acid F/U @ 4Hr 3.8 H* Calcium Phosphorus Magnesium Total Bilirubin AST ALT Alkaline Phosphatase Ammonia Total Creatine Kinase Troponin I High Sens B-Natriuretic Peptide Total Protein Albumin TSH Urine Color Urine Appearance Urine pH Ur Specific [place] Urine Protein Urine Glucose (UA) Urine Ketones Urine Blood Urine Nitrite Ur Leukocyte Esterase Urine RBC Urine WBC Ur Squamous Epith Cells Calcium Oxalate Crystal Other Crystals Urine Bacteria Hyaline Casts Ethyl Alcohol Imaging Radiologist's Impressions: Impressions Cervical Spine CT 08/28/22 08:10 IMPRESSION: Significantly limited study. Overall appearance is similar to the most recent cervical spine CT scan. No definitive acute fractures seen however evaluation for acute nondisplaced fracture is limited. If pain persists or worsens, a repeat CT scan is recommended when possible. Head CT 08/28/22 08:10 IMPRESSION: Limited study without overt acute intracranial abnormality. Symptoms persist or worsen, a short-term repeat PET/CT scan is recommended. Chest X-Ray 08/28/22 11:45 IMPRESSION: No acute cardiopulmonary process. Assessment and Plan (1) KATHIA (acute kidney injury): Status: Acute (2) Metabolic acidosis: Status: Acute (3) Acute hypotension: Status: Acute (4) Acute hyperkalemia: Status: Acute (5) Bradycardia: Status: Acute (6) Pacemaker malfunction: Status: Acute (7) Hypothyroidism: Status: Acute (8) Acute respiratory failure: Status: Acute (9) Acute congestive heart failure: Status: Acute (10) Acidosis, lactic: Status: Acute (11) Transaminitis: Status: Acute (12) Rhabdomyolysis: Status: Acute Plan Assessment: 81-year-old lady admitted with unresponsiveness, acute renal failure, metabolic acidosis, pacemaker malfunction, and shock Plan: Neuro: Unresponsiveness, likely secondary to toxic encephalopathy and hypoperfusion. Cardiac: Bradycardia, shock. Internal pacer not capturing. Transcutaneous pacer capturing at 14 milliamps. Now on maximum dose levophed and 20mcg of Dopamine. No response to atropine. Cardiology service care appreciated. Will likely require pacemaker revision. 2D echo is pending. Pulmonary: Acute respiratory failure. Continue with ventilatory support. Renal: Acute renal failure, secondary to poor forward flow. Now on emergent hemodialysis. Nephrology service care appreciated. Hyperkalemia improved with improvement in acidosis. Continue to monitor renal indices and urine output Endo: Underlying hypothyroidism. Now on empiric IV levothyroxine and hydrocortisone. GI: No acute issues. ID: On empiric antibiotics, though sepsis is unlikely. Heme/Onc: No acute issues. Psych: No acute issues. Miscellaneous: No acute issues. Prophylaxis: Pneumatic compression Diet: Nothing by mouth Critical care time spent: 180 minutes excluding separately billable procedures Time Spent With Patient Time: Total time managing care of this patient today ____ minutes.
--- NOTE | 2022-08-28 14:03 | MHC.CM.PN ---
IMM 08/28/22. Pt admitted with dx: shock, pt intubated, status critical. D/C plan pending further evaluation/care. HCP on file daughter Erica ([phone]). Covid vax: x 2 pfizer.
[2022-08-28] MEDS: DOPamine HCL/D5W 400 MG/250 ML PLAST..BAG 13.88 MG IVCONT (14:16)
[2022-08-28] MEDS: Hydrocortisone Sod Succ/PF 100 MG VIAL IVPUSH (14:25)
[2022-08-28] MEDS: Levothyroxine Sodium 100 MCG/5 ML VIAL 200 MCG IVPUSH (14:33)
[2022-08-28] MEDS: Norepinephrine Bitartrate/D5W 8 MG/250 ML PLAST..BAG 98.74 MG IV (15:51)
[2022-08-28 15:53] LABS: VBG Base Excess -8.7 mmol/L; VBG HCO3 16 mmol/L (22-26); VBG O2 % Saturation < 30.0 %; VBG pCO2 30 mmHg; VBG pH 7.32 (7.32-7.43); VBG pO2 27 mmHg
[2022-08-28 15:57] LABS: PLT CLUMP 1
[2022-08-28 15:59] LABS: Hematocrit 32.4 % (37.0-47.0); Hemoglobin 10.7 g/dl (12.0-16.0); Mean Corpuscular Hemoglobin 32.5 pg (27.0-33.0); Mean Corpuscular Volume 98.5 fL (80.0-98.0); Red Blood Count 3.29 X10*6/uL (4.20-5.50)
[2022-08-28 16:05] LABS: NRBC Pct Auto 13.5 /100WBC (0.0-0.2); PLT ABN DIST 1; WBC ABN SCTR FOR CBC 1
[2022-08-28 16:06] LABS: White Blood Count 23.8 X10*3/uL (4.8-10.8)
[2022-08-28 16:13] LABS: B Type Natriuretic Peptide 2885 pg/mL (<100)
[2022-08-28 16:15] LABS: Ammonia 174 umol/L (13-55)
[2022-08-28 16:18] LABS: Alanine Aminotransferase 2323 U/L (0-31); Albumin Level 3.6 g/dL (3.5-5.0); Alkaline Phosphatase 57 U/L (39-117); Anion Gap 35 (12-20); Aspartate Amino Transferase 3211 U/L (5-31); Bilirubin Total 6.7 mg/dL (0.0-1.0); Blood Urea Nitrogen 29 mg/dL (9-16); Calcium 7.5 mg/dL (8.4-10.2); Carbon Dioxide 14 mmol/L (22-29); Chloride 102 mmol/L (96-108); Creatinine Clr Calc Pharmacy 16.2; Estimated Glomerular Filt Rate 18; Glucose Random 107 mg/dL (60-115); Sodium 146 mmol/L (135-145); Total Protein 6.1 g/dL (6.5-8.0)
[2022-08-28 16:25] LABS: Troponin-I High Sensitivity 396.8 ng/L (<3.5-17.0)
[2022-08-28 16:31] LABS: Free T4 (Free Thyroxine) 1.08 ng/dL (0.71-1.85)
[2022-08-28 16:39] LABS: Atypical Lymph Absolute Manual 0.2 x10*3/uL; Atypical Lymphs Percent Manual 1 % (0-6); Band Neutrophils Percent 6 % (3-5); Lymphocytes Absolute Manual 2.4 X10*3/uL (1.2-4.9); Lymphocytes Percent Manual 10 % (20-40); Metamyelocytes Absolute 0.7 X10*3/uL; Metamyelocytes Percent 3 %; Monocytes Absolute Manual 0.5 X10*3/uL (0.1-1.2); Monocytes Percent Manual 2 % (2-11); Neutrophils Percent Manual 78 % (45-73); Nucleated Red Blood Cells 21 /100WBC (0-0); RBC Morphology NOTED
[2022-08-28 16:40] LABS: Burr Cells 3+ (>5) /OIF; Giant Platelet PRESENT; Microcytosis 1+ (5-14) /OIF; Platelet Estimate SLIGHTLY DECREASED (NORMAL); Platelet Morphology Comment NOTED
[2022-08-28 16:41] LABS: Acanthocytes 1+ (0-2) /OIF; Target Cells 1+ (5-14) /OIF
[2022-08-28] MEDS: DOBUTamine HCL/D5W 500 MG/250 ML IV.SOLN 5.55 MG IVCONT (16:51)
--- NOTE | 2022-08-28 16:51 | PM.EVENT ---
Event Note Date of Service: 08/28/22 Event Note: Patient with intensive effort and critical involvement after intubation and dialysis has much improved PH as well as potassium level. Echocardiogram at bedside shows markedly reduced LV ejection fraction with markedly reduced stroke volume, patient with persistent lactic acidosis with multiorgan system failure with acute ischemic liver as well as acute ischemic kidney injury. Currently still intubated and requiring maximum vasopressor support. Discussed with Dr. Madden. Patient is still not capturing her inserted permanent pacemaker but capturing with external pacemaker at high will take age. Heart rate of 70 beats per minute without much stroke volume. Will start on dobutamine 2.5 micrograms/kg per minute. Discussed the case with Dr. Junior at [facility] and he has accepted the patient graciously to CICU service. Overall prognosis remains extremely poor. Greater than 1 hour spent in critical care time Time Spent With Patient Time: Total time managing care of this patient today ____ minutes.
--- NOTE | 2022-08-28 16:53 | P.DS_ITS ---
DS: Providers Provider Date of Service: 08/28/22 Date of admission: 08/28/22 10:36 Primary care physician: Unknown Physician Consults: 08/28/22 09:08 Consult to Cardiology Stat Consulting Provider: [facility] [place] Cardiovascular Services Reason for consultation: Malfunctioning pacemaker, CHF, hypotension Consult to Nephrology Stat Consulting Provider: Seymour Tariq Reason for consultation: Hyperkalemia Has provider been notified: Yes 08/28/22 09:12 Consult to Critical Care Stat Consulting Provider: Jose Madden Reason for consultation: hypotension Has provider been notified: Yes DS: Transfer Hospital Acceptance Reason for Transfer: Advanced cardiac support/evaluation Name of Facility: [facility] Accepting Provider: Dr. Jey Junior DS: Diagnosis Discharge Diagnosis (1) Acute congestive heart failure: Status: Acute (2) Bradycardia: Status: Acute (3) Pacemaker malfunction: Status: Acute (4) Acute hypotension: Status: Acute (5) KATHIA (acute kidney injury): Status: Acute (6) Metabolic acidosis: Status: Acute (7) Acute respiratory failure: Status: Acute (8) Acute hyperkalemia: Status: Acute (9) Hypothyroidism: Status: Acute (10) Acidosis, lactic: Status: Acute (11) Transaminitis: Status: Acute (12) Rhabdomyolysis: Status: Acute DS: Summary Hospital Course Hospital Course: 81-year-old lady with underlying history of hypothyroidism, hypertension, AFib status post pacemaker placement alcohol abuse admitted on 08/28/2022 with unresponsiveness. On ER evaluation patient is hypothermic, with profound met abolic acidosis, hyperkalemia, transaminitis, acute renal failure, hypotension with poor response to initial IV fluid resuscitation and poor pacemaker capture. Patient was evaluated by Cardiology nephrology services. She was started on IV bicarbonate, vasopressor support, systemic glucocorticoids, IV levothyroxine, and given empiric antibiotics. Emergent hemodialysis catheter placed. Patient emergently intubated and transferred to intensive care unit for emergent hemodialysis. During hemodialysis patient with symptomatic bradycardia down to 30's, started on transcutaneous pacer with capture at 12 mA, paced at 70bpm with improvement in blood pressure, but still requiring high-dose pressor support. Post dialysis 2D echocardiogram obtained with demonstration of new globally reduced ejection fraction / poor left ventricular contractility. Laboratory studies significant for ischemic hepatitis, ischemic KATHIA/ATN, persistent lactic metabolic acidosis, but with improvement in potassium to 5.0 and venous pH to 7.32. Care is further discussed with shell sorter and transfer to [facility] cardiac intensive care unit for advanced cardiac support/evaluation requested and granted. Time Spent with Patient Time attestation: Total time managing care of this patient today ____ minutes. Discharge coordination time: Greater than 30 minutes Quality: Safe Use of Opioids Does Pt have an Active Cancer Diagnosis on the Problem List?: No Quality: Stroke Does the patient have a stroke diagnosis?: No Physical Exam Vital Signs: Vital Signs: Last Vital Signs Temp 94.3 F L 08/28/22 16:00 Pulse 70 08/28/22 16:51 Resp 30 H 08/28/22 16:00 BP 136/93 H 08/28/22 16:51 Pulse Ox 93 08/28/22 16:00 O2 Del Method Mechanical Ventil ation 08/28/22 16:00 O2 Flow Rate 13 08/28/22 09:54 FiO2 40 08/28/22 16:08 BMI result Body Mass Index 28.0 Const: General: no acute distress and other (Sedated on the ventilatory support) Eyes: Sclerae: sclerae normal Neck: Neck: Yes no lymphadenopathy, Yes trachea midline and Yes supple Resp: Auscultation: crackles (Mild bilateral) Cardio: Rate: regular rate Rhythm: regular rhythm Heart sounds: no gallops, no murmurs and no rubs GI: Palpation (GI): Soft to palpation and Other GI palpation findings present ( Nontender) Auscultation: normal bowel sounds Extrem: General: No clubbing, No cyanosis and Yes edema (Trace bilateral) DS: Data Data Completed and Pending Completed studies during hospitalization [Text1]: Procedures Transfusion of Nonautologous Red Blood Cells into Peripheral Vein, Percutaneous Approach (01/24/22) Labs on day of discharge: Laboratory Results - last 24 hr 08/28/22 08/28/22 08/28/22 06:18 06:28 06:29 WBC 18.1 H RBC 3.40 L Hgb 11.1 L Hct 34.5 L MCV 101.5 H MCH 32.6 MCHC 32.2 RDW 24.4 H Plt Count 160 MPV Not Reportable Immature Gran % (Auto) Cancelled Neut % (Auto) Cancelled Lymph % (Auto) Cancelled [place] % (Auto) Cancelled Eos % (Auto) Cancelled Baso % (Auto) Cancelled Lymph # (Auto) Cancelled [place] # (Auto) Cancelled Eos # (Auto) Cancelled Baso # (Auto) Cancelled Abs Immat Gran (auto) Cancelled Absolute Neuts (auto) Cancelled Absolute Nucleated RBC 1.170 H Nucleated RBC % (auto) 6.4 H Neutrophils % (Manual) 77 H Band Neutrophils % 5 Lymphocytes % (Manual) 12 L Atypical Lymphs % (Man) Monocytes % (Manual) 4 Metamyelocytes % 1 Myelocytes % 1 Abs Neuts (Manual) 14.8 H Lymphocytes # (Manual) 2.2 Atyp Lymphs # (Manual) Monocytes # (Manual) 0.7 Metamyelocytes # 0.2 Myelocytes # 0.2 Nucleated RBCs 10 H Platelet Estimate NORMAL Large Platelets PRESENT Giant Platelets Plt Morphology Comment NOTED RBC Morphology NOTED Polychromasia 1+ (0-2) Hypochromasia 1+ (5-14) Microcytosis Macrocytosis 1+ (5-14) Target Cells [place] Cells 2+ (3-5) Acanthocytes (Spur) Smear Path Review SEE NOTE PT INR APTT VBG pH VBG pCO2 VBG pO2 VBG HCO3 VBG O2 Saturation VBG Base Excess Sodium Potassium Chloride Carbon Dioxide Anion Gap BUN Creatinine Estim Creat Clear Calc Estimated GFR POC Glucose 89 Random Glucose Lactic Acid Lactic Acid F/U @ 2Hr Lactic Acid F/U @ 4Hr Calcium Phosphorus Magnesium Total Bilirubin AST ALT Alkaline Phosphatase Ammonia Total Creatine Kinase Troponin I High Sens B-Natriuretic Peptide Total Protein Albumin TSH Free T4 Urine Color Urine Appearance Urine pH Ur Specific [place] Urine Protein Urine Glucose (UA) Urine Ketones Urine Blood Urine Nitrite Ur Leukocyte Esterase Urine RBC Urine WBC Ur Squamous Epith Cells Calcium Oxalate Crystal Other Crystals Urine Bacteria Hyaline Casts Ethyl Alcohol Cancelled 08/28/22 08/28/22 08/28/22 06:29 06:29 06:29 WBC RBC Hgb Hct MCV MCH MCHC RDW Plt Count MPV Immature Gran % (Auto) Neut % (Auto) Lymph % (Auto) [place] % (Auto) Eos % (Auto) Baso % (Auto) Lymph # (Auto) [place] # (Auto) Eos # (Auto) Baso # (Auto) Abs Immat Gran (auto) Absolute Neuts (auto) Absolute Nucleated RBC Nucleated RBC % (auto) Neutrophils % (Manual) Band Neutrophils % Lymphocytes % (Manual) Atypical Lymphs % (Man) Monocytes % (Manual) Metamyelocytes % Myelocytes % Abs Neuts (Manual) Lymphocytes # (Manual) Atyp Lymphs # (Manual) Monocytes # (Manual) Metamyelocytes # Myelocytes # Nucleated RBCs Platelet Estimate Large Platelets Giant Platelets Plt Morphology Comment RBC Morphology Polychromasia Hypochromasia Microcytosis Macrocytosis Target Cells [place] Cells Acanthocytes (Spur) Smear Path Review PT 26.9 H INR 2.3 H APTT 27.6 VBG pH VBG pCO2 VBG pO2 VBG HCO3 VBG O2 Saturation VBG Base Excess Sodium 139 Potassium 8.4 H* D Chloride 104 Carbon Dioxide 11 L Anion Gap 32 H BUN 51 H Creatinine 4.33 H* Estim Creat Clear Calc 8.5 Estimated GFR 10 POC Glucose Random Glucose 93 Lactic Acid Lactic Acid F/U @ 2Hr Lactic Acid F/U @ 4Hr Calcium 8.4 D Phosphorus Magnesium 2.5 Total Bilirubin 4.7 H AST 2010 H ALT 1503 H Alkaline Phosphatase 60 Ammonia Total Creatine Kinase Troponin I High Sens 55.8 H* B-Natriuretic Peptide Total Protein 7.2 Albumin 4.3 TSH > 100.00 H Free T4 Urine Color Urine Appearance Urine pH Ur Specific [place] Urine Protein Urine Glucose (UA) Urine Ketones Urine Blood Urine Nitrite Ur Leukocyte Esterase Urine RBC Urine WBC Ur Squamous Epith Cells Calcium Oxalate Crystal Other Crystals Urine Bacteria Hyaline Casts Ethyl Alcohol < 10 08/28/22 08/28/22 08/28/22 06:29 06:41 06:49 WBC RBC Hgb Hct MCV MCH MCHC RDW Plt Count MPV Immature Gran % (Auto) Neut % (Auto) Lymph % (Auto) [place] % (Auto) Eos % (Auto) Baso % (Auto) Lymph # (Auto) [place] # (Auto) Eos # (Auto) Baso # (Auto) Abs Immat Gran (auto) Absolute Neuts (auto) Absolute Nucleated RBC Nucleated RBC % (auto) Neutrophils % (Manual) Band Neutrophils % Lymphocytes % (Manual) Atypical Lymphs % (Man) Monocytes % (Manual) Metamyelocytes % Myelocytes % Abs Neuts (Manual) Lymphocytes # (Manual) Atyp Lymphs # (Manual) Monocytes # (Manual) Metamyelocytes # Myelocytes # Nucleated RBCs Platelet Estimate Large Platelets Giant Platelets Plt Morphology Comment RBC Morphology Polychromasia Hypochromasia Microcytosis Macrocytosis Target Cells [place] Cells Acanthocytes (Spur) Smear Path Review PT INR APTT VBG pH 7.09 L* VBG pCO2 24 VBG pO2 49 VBG HCO3 7 L VBG O2 Saturation 55.0 VBG Base Excess -20.3 Sodium Potassium Chloride Carbon Dioxide Anion Gap BUN Creatinine Estim Creat Clear Calc Estimated GFR POC Glucose Random Glucose Lactic Acid 12.8 H* Lactic Acid F/U @ 2Hr Lactic Acid F/U @ 4Hr Calcium Phosphorus Magnesium Total Bilirubin AST ALT Alkaline Phosphatase Ammonia Total Creatine Kinase Troponin I High Sens B-Natriuretic Peptide 2806 H Total Protein Albumin TSH Free T4 Urine Color Urine Appearance Urine pH Ur Specific [place] Urine Protein Urine Glucose (UA) Urine Ketones Urine Blood Urine Nitrite Ur Leukocyte Esterase Urine RBC Urine WBC Ur Squamous Epith Cells Calcium Oxalate Crystal Other Crystals Urine Bacteria Hyaline Casts Ethyl Alcohol 08/28/22 08/28/22 08/28/22 08:17 08:33 11:00 WBC RBC Hgb Hct MCV MCH MCHC RDW Plt Count MPV Immature Gran % (Auto) Neut % (Auto) Lymph % (Auto) [place] % (Auto) Eos % (Auto) Baso % (Auto) Lymph # (Auto) [place] # (Auto) Eos # (Auto) Baso # (Auto) Abs Immat Gran (auto) Absolute Neuts (auto) Absolute Nucleated RBC Nucleated RBC % (auto) Neutrophils % (Manual) Band Neutrophils % Lymphocytes % (Manual) Atypical Lymphs % (Man) Monocytes % (Manual) Metamyelocytes % Myelocytes % Abs Neuts (Manual) Lymphocytes # (Manual) Atyp Lymphs # (Manual) Monocytes # (Manual) Metamyelocytes # Myelocytes # Nucleated RBCs Platelet Estimate Large Platelets Giant Platelets Plt Morphology Comment RBC Morphology Polychromasia Hypochromasia Microcytosis Macrocytosis Target Cells [place] Cells Acanthocytes (Spur) Smear Path Review PT INR APTT VBG pH 7.26 L VBG pCO2 38 VBG pO2 31 VBG HCO3 17 L VBG O2 Saturation < 30.0 VBG Base Excess -8.5 Sodium Potassium Chloride Carbon Dioxide Anion Gap BUN Creatinine Estim Creat Clear Calc Estimated GFR POC Glucose Random Glucose Lactic Acid Lactic Acid F/U @ 2Hr Lactic Acid F/U @ 4Hr Calcium Phosphorus Magnesium Total Bilirubin AST ALT Alkaline Phosphatase Ammonia 144 H Total Creatine Kinase Troponin I High Sens B-Natriuretic Peptide Total Protein Albumin TSH Free T4 Urine Color Dark Yellow Urine Appearance Turbid Urine pH 5.0 Ur Specific [place] 1.025 Urine Protein 300 (3+) H Urine Glucose (UA) Negative Urine Ketones Trace Urine Blood Small (1+) H Urine Nitrite Positive H Ur Leukocyte Esterase Small (1+) H Urine RBC >20 H Urine WBC 0-5 Ur Squamous Epith Cells >20 Calcium Oxalate Crystal Present Other Crystals Present Urine Bacteria 1+ Hyaline Casts >20 Ethyl Alcohol 08/28/22 08/28/22 08/28/22 11:03 11:03 11:03 WBC RBC Hgb Hct MCV MCH MCHC RDW Plt Count MPV Immature Gran % (Auto) Neut % (Auto) Lymph % (Auto) [place] % (Auto) Eos % (Auto) Baso % (Auto) Lymph # (Auto) [place] # (Auto) Eos # (Auto) Baso # (Auto) Abs Immat Gran (auto) Absolute Neuts (auto) Absolute Nucleated RBC Nucleated RBC % (auto) Neutrophils % (Manual) Band Neutrophils % Lymphocytes % (Manual) Atypical Lymphs % (Man) Monocytes % (Manual) Metamyelocytes % Myelocytes % Abs Neuts (Manual) Lymphocytes # (Manual) Atyp Lymphs # (Manual) Monocytes # (Manual) Metamyelocytes # Myelocytes # Nucleated RBCs Platelet Estimate Large Platelets Giant Platelets Plt Morphology Comment RBC Morphology Polychromasia Hypochromasia Microcytosis Macrocytosis Target Cells [place] Cells Acanthocytes (Spur) Smear Path Review PT INR APTT VBG pH VBG pCO2 VBG pO2 VBG HCO3 VBG O2 Saturation VBG Base Excess Sodium 150 H 151 H Potassium 5.9 H D 5.9 H Chloride 105 105 Carbon Dioxide 18 L 18 L Anion Gap 33 H 34 H BUN 47 H 48 H Creatinine 3.97 H 4.06 H* Estim Creat Clear Calc 10.5 10.3 Estimated GFR 11 11 POC Glucose Random Glucose 198 H 201 H Lactic Acid Lactic Acid F/U @ 2Hr 17.5 H* Lactic Acid F/U @ 4Hr Calcium 7.4 L D 7.7 L Phosphorus 8.7 H Magnesium 2.3 Total Bilirubin 5.2 H AST 1761 H ALT 1267 H Alkaline Phosphatase 45 Ammonia Total Creatine Kinase 2671 H Troponin I High Sens B-Natriuretic Peptide Total Protein 5.4 L Albumin 3.3 L TSH Free T4 Urine Color Urine Appearance Urine pH Ur Specific [place] Urine Protein Urine Glucose (UA) Urine Ketones Urine Blood Urine Nitrite Ur Leukocyte Esterase Urine RBC Urine WBC Ur Squamous Epith Cells Calcium Oxalate Crystal Other Crystals Urine Bacteria Hyaline Casts Ethyl Alcohol 08/28/22 08/28/22 08/28/22 13:18 15:42 15:42 WBC 23.8 H RBC 3.29 L Hgb 10.7 L Hct 32.4 L MCV 98.5 H MCH 32.5 MCHC 33.0 RDW 24.0 H Plt Count MPV Not Reportable Immature Gran % (Auto) Cancelled Neut % (Auto) Cancelled Lymph % (Auto) Cancelled [place] % (Auto) Cancelled Eos % (Auto) Cancelled Baso % (Auto) Cancelled Lymph # (Auto) Cancelled [place] # (Auto) Cancelled Eos # (Auto) Cancelled Baso # (Auto) Cancelled Abs Immat Gran (auto) Cancelled Absolute Neuts (auto) Cancelled Absolute Nucleated RBC 3.210 H Nucleated RBC % (auto) 13.5 H Neutrophils % (Manual) 78 H Band Neutrophils % 6 H Lymphocytes % (Manual) 10 L Atypical Lymphs % (Man) 1 Monocytes % (Manual) 2 Metamyelocytes % 3 Myelocytes % Abs Neuts (Manual) 20.0 H Lymphocytes # (Manual) 2.4 Atyp Lymphs # (Manual) 0.2 Monocytes # (Manual) 0.5 Metamyelocytes # 0.7 Myelocytes # Nucleated RBCs 21 H Platelet Estimate SLIGHTLY DECREASED Large Platelets Giant Platelets PRESENT Plt Morphology Comment NOTED RBC Morphology NOTED Polychromasia Hypochromasia Microcytosis 1+ (5-14) Macrocytosis Target Cells 1+ (5-14) [place] Cells 3+ (>5) Acanthocytes (Spur) 1+ (0-2) Smear Path Review PT INR APTT VBG pH VBG pCO2 VBG pO2 VBG HCO3 VBG O2 Saturation VBG Base Excess Sodium 146 H Potassium 5.0 Chloride 102 Carbon Dioxide 14 L Anion Gap 35 H BUN 29 H Creatinine 2.58 H Estim Creat Clear Calc 16.2 Estimated GFR 18 POC Glucose Random Glucose 107 Lactic Acid Lactic Acid F/U @ 2Hr Lactic Acid F/U @ 4Hr 3.8 H* Calcium 7.5 L Phosphorus Magnesium Total Bilirubin 6.7 H AST 3211 H ALT 2323 H Alkaline Phosphatase 57 Ammonia Total Creatine Kinase 3945 H Troponin I High Sens B-Natriuretic Peptide Total Protein 6.1 L Albumin 3.6 TSH Free T4 1.08 Urine Color Urine Appearance Urine pH Ur Specific [place] Urine Protein Urine Glucose (UA) Urine Ketones Urine Blood Urine Nitrite Ur Leukocyte Esterase Urine RBC Urine WBC Ur Squamous Epith Cells Calcium Oxalate Crystal Other Crystals Urine Bacteria Hyaline Casts Ethyl Alcohol 08/28/22 08/28/22 08/28/22 15:42 15:42 15:42 WBC RBC Hgb Hct MCV MCH MCHC RDW Plt Count MPV Immature Gran % (Auto) Neut % (Auto) Lymph % (Auto) [place] % (Auto) Eos % (Auto) Baso % (Auto) Lymph # (Auto) [place] # (Auto) Eos # (Auto) Baso # (Auto) Abs Immat Gran (auto) Absolute Neuts (auto) Absolute Nucleated RBC Nucleated RBC % (auto) Neutrophils % (Manual) Band Neutrophils % Lymphocytes % (Manual) Atypical Lymphs % (Man) Monocytes % (Manual) Metamyelocytes % Myelocytes % Abs Neuts (Manual) Lymphocytes # (Manual) Atyp Lymphs # (Manual) Monocytes # (Manual) Metamyelocytes # Myelocytes # Nucleated RBCs Platelet Estimate Large Platelets Giant Platelets Plt Morphology Comment RBC Morphology Polychromasia Hypochromasia Microcytosis Macrocytosis Target Cells [place] Cells Acanthocytes (Spur) Smear Path Review PT INR APTT VBG pH VBG pCO2 VBG pO2 VBG HCO3 VBG O2 Saturation VBG Base Excess Sodium Potassium Chloride Carbon Dioxide Anion Gap BUN Creatinine Estim Creat Clear Calc Estimated GFR POC Glucose Random Glucose Lactic Acid 19.0 H* Lactic Acid F/U @ 2Hr Lactic Acid F/U @ 4Hr Calcium Phosphorus Magnesium Total Bilirubin AST ALT Alkaline Phosphatase Ammonia 174 H Total Creatine Kinase Troponin I High Sens 396.8 H* D B-Natriuretic Peptide Total Protein Albumin TSH Free T4 Urine Color Urine Appearance Urine pH Ur Specific [place] Urine Protein Urine Glucose (UA) Urine Ketones Urine Blood Urine Nitrite Ur Leukocyte Esterase Urine RBC Urine WBC Ur Squamous Epith Cells Calcium Oxalate Crystal Other Crystals Urine Bacteria Hyaline Casts Ethyl Alcohol 08/28/22 08/28/22 15:42 15:44 WBC RBC Hgb Hct MCV MCH MCHC RDW Plt Count MPV Immature Gran % (Auto) Neut % (Auto) Lymph % (Auto) [place] % (Auto) Eos % (Auto) Baso % (Auto) Lymph # (Auto) [place] # (Auto) Eos # (Auto) Baso # (Auto) Abs Immat Gran (auto) Absolute Neuts (auto) Absolute Nucleated RBC Nucleated RBC % (auto) Neutrophils % (Manual) Band Neutrophils % Lymphocytes % (Manual) Atypical Lymphs % (Man) Monocytes % (Manual) Metamyelocytes % Myelocytes % Abs Neuts (Manual) Lymphocytes # (Manual) Atyp Lymphs # (Manual) Monocytes # (Manual) Metamyelocytes # Myelocytes # Nucleated RBCs Platelet Estimate Large Platelets Giant Platelets Plt Morphology Comment RBC Morphology Polychromasia Hypochromasia Microcytosis Macrocytosis Target Cells [place] Cells Acanthocytes (Spur) Smear Path Review PT INR APTT VBG pH 7.32 VBG pCO2 30 VBG pO2 27 VBG HCO3 16 L VBG O2 Saturation < 30.0 VBG Base Excess -8.7 Sodium Potassium Chloride Carbon Dioxide Anion Gap BUN Creatinine Estim Creat Clear Calc Estimated GFR POC Glucose Random Glucose Lactic Acid Lactic Acid F/U @ 2Hr Lactic Acid F/U @ 4Hr Calcium Phosphorus Magnesium Total Bilirubin AST ALT Alkaline Phosphatase Ammonia Total Creatine Kinase Troponin I High Sens B-Natriuretic Peptide 2885 H Total Protein Albumin TSH Free T4 Urine Color Urine Appearance Urine pH Ur Specific [place] Urine Protein Urine Glucose (UA) Urine Ketones Urine Blood Urine Nitrite Ur Leukocyte Esterase Urine RBC Urine WBC Ur Squamous Epith Cells Calcium Oxalate Crystal Other Crystals Urine Bacteria Hyaline Casts Ethyl Alcohol Discharge Plan Discharge Anticipated Discharge Date/Time: 08/28/22 18:00 Patient Disposition: Xfer Acute [facility] Discharge Diagnosis: Cardiogenic shock Referrals: Physician,Unknown J [Primary Care Provider] - 1 Week Discharge Medications: Discontinued fluoxetine 40 mg capsule 40 mg PO DAILY quetiapine 300 mg tablet 300 mg PO BEDTIME cyclobenzaprine 10 mg Tablet 10 mg PO BEDTIME Qty: 30 4RF levothyroxine 100 mcg Tablet 100 mcg PO DAILY ketotifen fumarate 0.025 % (0.035 %) drops 1 drp ophthalmic (eye) BID ketotifen fumarate 0.025 % (0.035 %) Drops 1 drp OPHTHALMIC (EYE) BID Rx Instructions: administer at least 8 hours apart fluticasone propionate 50 mcg/actuation spray,suspension 1 spray intranasal DAILY (DME) back brace Misc See Rx Instructions .Route Qty: 1 0RF Rx Instructions: As directed Discharge Orders: Discharge Order (Routine); Ordered 08/28/22 Ordered By: Jose Madden Activity on Discharge: Bedrest Care Plan Goals: Advanced cardiac support/evaluation Health Concerns: Cardiogenic shock Plan of Treatment: Advanced cardiac support/evaluation Assessment: Patient and cardiogenic shock being transferred for further evaluation.
[2022-08-28 17:38] LABS: COVID-19 Test Negative (Negative); IDNOW Serial# 08D9AD1C
[2022-08-28 17:48] LABS: Reflex Lactate? Lactic Acid Added
[2022-08-28 18:23] LABS: Platelet Count 148 X10*3/uL (160-400)
[2022-08-28] MEDS: Norepinephrine Bitartrate/D5W 8 MG/250 ML PLAST..BAG 64.3 MG IV (18:37)
[2022-08-28 18:38] LABS: ~Lactic Acid-LAB USE ONLY 16.5 mmol/L (0.5-2.0)
--- NOTE | 2022-08-28 18:42 | PC.NURSE ---
Pt arrived to the unit from ED at approximately 1030; intubated and on Levophed gtt. Pt settled in bed and labs drawn; plan for emergent dialysis; during dialysis pt started to wake up; required IV propofol gtt; later pt became bradycardic in the mid 30s with poor pacemaker captures; 1mg atropine given per order with no effect; BP slowly dropping; started on IV Dopamine gtt alongside transcutaneous pacing at 70 bpm on 12 MA an tolerating. Pt came off Dopamine gtt. Echo performed at bedside after dialysis complete; K+ improved. Repeat labs drawn (see report); plan to transfer pt to [facility] [place] for cardiac support. Pt accepted at [facility] [place], report given to receiving RN James on [place] [address]. Pt's family talked with by and this senior copywriter, all questions answered, agreeable of the plan at this time. Pt started on IV [place] gtt per order and pressors titrated for a Map of 70-75 per MD's order. Pt otherwise continues to be sedated and intubated; -C&G; PERRLA opens eyes to voice but unable to follow commands or track; WENDY spontaneously. Pt remains on AC mode 30/ 450/ 5/ 40%, synchronous with vent; unable to get an accurate O2 Sat due to pt's hypothermia, MD aware. Temp improving spontaneously and at 94.3 from 92. Pt continues to be anuric and MD aware. Small CDI abrasions to the R lower leg from the fall. Pt otherwise is in no acute distress at this time. Safety maintained throughout. Will continue to monitor until transportation gets here.
[2022-08-28 20:14] LABS: Reflex Lactate? 2 Y
--- NOTE | 2022-08-28 21:26 | PC.NURSE ---
This RN assumed care of this pt around 1900. Transport scheduled and report was given by previous RN. Upon assessment, pt noted to not have any response to pain in all 4 extremities, pale, attached to external pacers 12mA 70HR. Pulses were not palpable, unable to auscultate HR. Doppler used to assess femoral pulse d/t possible PEA; pulse was found. HR was not being paced at set rate of 70. Pt's HR was found to be 40 manually, did not pace when amp was increased to 70. Pt's chest and arms began to twitch at 70amp so decreased back to 12 per PA. PA informed and assessed pt at bedside, confirmed pt's HR was 35-40 via US and doppler. ?'ed PA obtaining ABG d/t O2 sat not being obtainable on monitor. Pt hypothermic, herminia hugger not placed per MD order from prev shift. CCT arrived and set pt to 180mA 70 HR afterwards pt began to pace. CCT to [facility] took pt belongings and all drips including prop. Report and paperwork given to CCT.
[2022-08-29 07:23] LABS: Venous Blood Gas Refer to POC result
== END 2022-08-28 20:40 | disposition short-term general hospital (02) | DRG 308 ==
LOC: HO.ED 09:52 → HO.EDOVER 10:47 → HO.ICU 11:09
PROVIDERS: Internal Medicine; Admitting Provider Internal Medicine Pulmonary Disease; Emergency Provider Emergency Medicine; PCP Internal Medicine; Visit Provider Internal Medicine Pulmonary Disease
DX: T82.111A Breakdown (mechanical) of cardiac pulse generator (battery), initial encounter (principal); G92.8 Other toxic encephalopathy; K72.00 Acute and subacute hepatic failure without coma; N17.0 Acute kidney failure with tubular necrosis; E87.20 Acidosis, unspecified; R57.9 Shock, unspecified; N28.0 Ischemia and infarction of kidney; Y71.2 Prosthetic and other implants, materials and accessory cardiovascular devices associated with adverse incidents; K21.9 Gastro-esophageal reflux disease without esophagitis; Z95.0 Presence of cardiac pacemaker; E03.9 Hypothyroidism, unspecified; I11.0 Hypertensive heart disease with heart failure; F10.10 Alcohol abuse, uncomplicated; I49.5 Sick sinus syndrome; R68.0 Hypothermia, not associated with low environmental temperature; E87.5 Hyperkalemia; I48.0 Paroxysmal atrial fibrillation; F41.9 Anxiety disorder, unspecified; F32.A Depression, unspecified; Z20.822 Contact with and (suspected) exposure to COVID-19
CPT/HCPCS: 36415; 70450; 71045; 72125; 80048; 80053; 80307; 81001; 82140; 82530; 82550; 82803; 82947; 83605; 83735; 83880; 84100; 84439; 84443; 84484; 85007; 85025; 85027; 85610; 85730; 87040; 87086; 87635; 90999; 93005; 93306; 94002; 94799; 99285; C1758; J0171; J0461; J0613; J0696; J1100; J1250; J1265; J1643; J3475; Q9957